=== PATIENT | female | born 1990 | race Caucasian/White ===

== ENCOUNTER 2020-03-05 09:16 | Observation (INO) ==
[2020-03-05] MEDS ORDERED: ONDANSETRON INJ 2 MG/ML 2 ML VIAL IV STA (09:51)
[2020-03-05] MEDS ORDERED: SODIUM CHLORIDE 0.9% 1000ML 2,000 ML IV ONE (09:51)
--- NOTE | 2020-03-05 10:05 | Emergency Department Note ---
History of Present Illness General Chief complaint: Vomiting Stated complaint: VOMITING Time Seen by Provider: 03/05/20 09:36 Source: patient Mode of arrival: ambulatory Limitations: no limitations History of Present Illness Maximum Pain Intensity: 5 This patient comes in for her fourth visit to the emergency department complaining of nausea and vomiting. She has had an extensive work-up done but continues to have nausea vomiting at home. There is questioning about cyclical vomiting when she is here last time. She does have a history of marijuana use but denies that she has used any recently. She has had no fever or cough or COVID symptoms but did get COVID tested on due to her continuation of s ymptoms. She vomited multiple times since last night. She does have an associated headache and feels that she is dehydrated. Denies . She has had extensive work-up including CAT scan of her head and her abdomen and multiple blood testing. She did test negative for Lyme. Her boyfriend is being treated presently for Lyme. Home Medications Home Medications Medication Instructions Recorded Confirmed Type citalopram 20 mg PO QAM 10/29/19 03/05/20 History ondansetron HCl 8 mg PO Q8H PRN 10/29/19 03/05/20 History levonorgestrel [Mirena] 20 mcg INTRAUTERINE DIRECTED 02/29/20 03/05/20 History metronidazole 500 mg PO BID 7 Days #14 tab 02/29/20 03/05/20 Rx Allergies Allergy/AdvReac Type Severity Reaction Status Date / Time Sulfa (Sulfonamide Allergy Severe ANAPHYLAXIS Unverified 03/05/20 11:49 Antibiotics) Cephalosporins Allergy Intermediate ANAPHYLAXIS Unverified 03/05/20 11:49 Penicillins Allergy Intermediate ANAPHYLAXIS Unverified 03/05/20 11:49 amoxicillin Allergy Mild ALLERGY Unverified 03/05/20 11:49 Past Med/Surg History Medical History Pneumonia Social History Preferred Language: Faroese Communication Ability: Effective Manager Intelligence Required: No Beliefs That Will Affect Care: None Current Living Situation: Family Other Information That Helps Us Care for You: No Feels Safe at Home: Yes Safety Concerns: Feels Safe At This Time Smoking Status: Never smoker Hx Alcohol Use: Yes Alcohol type: beer and wine Hx Substance Use: No Review of Systems A total of 10 systems reviewed and were otherwise negative Physical Exam Vital Signs Vital Signs - 24 hr 03/05/20 09:24 03/05/20 12:21 03/05/20 12:24 Temperature 36.9 C Temperature Source Oral Pulse Rate 103 H 93 H 94 H Pulse Rate from SpO2 Sensor 80 86 Respiratory Rate 16 14 20 Blood Pressure 136/101 H 117/83 Blood Pressure Mean 112 87 Pulse Oximetry 100 98 Oxygen Delivery Method Room Air Sepsis Recent Fever Within 48 Hours No Sepsis New/Unexplained Change in Mental Status No Sepsis Action Taken by Nursing No Action Required 03/05/20 12:30 Temperature Temperature Source Pulse Rate 76 Pulse Rate from SpO2 Sensor 75 Respiratory Rate 20 Blood Pressure 133/82 Blood Pressure Mean 98 Pulse Oximetry 100 Oxygen Delivery Method Sepsis Recent Fever Within 48 Hours Sepsis New/Unexplained Change in Mental Status Sepsis Action Taken by Nursing General: Well developed well nourished nontoxic young female who appears in no acute distress, breathing comfortably on room air. Normal speech HEENT: Normal cephalic atraumatic. Pupils are equal round and reactive to light. Extraocular movements are intact. Oropharynx is pink with moist mucous membranes. No swelling of the mouth lips or tongue. Neck: Supple with a midline trachea. No meningeal signs or stiffness, no JVD or bruits. No Stridor. Gait of kerning of Rozanski sign Chest: Normal respiratory effort without no increased work of breathing. Heart: Regular rate and rhythm. Abdomen: Soft nontender, nondistended without rebound guarding or rigidity. Extremities: No cyanosis clubbing or edema. No calf tenderness or assymetry Spine/Back. Non tender to palpation. No CVA tenderness Skin: Good turgor without rashes. Neurologic exam: Cranial nerves two through 12 are intact. Motor and sensation are intact and symmetrical throughout. Course Administered Medications Dextrose/Sodium Chloride (D5w And 1/2nss) 1,000 mls @ 60 mls/hr IV .[id number] YAMILET Stop: 04/04/20 12:44 Last Admin: 03/05/20 14:32 Dose: 60 mls/hr Documented by: [id number] Discontinued Medications Sodium Chloride (Nss 1000ml) 2,000 mls @ 999 mls/hr IV .[id number] ONE Stop: 03/05/20 11:51 Last Infusion: 03/05/20 12:24 Dose: 0 mls/hr Documented by: [id number] Admin: 03/05/20 10:22 Dose: 999 mls/hr Documented by: [id number] Promethazine HCl 12.5 mg/ (Sodium Chloride) 50.5 mls @ 202 mls/hr IV NOW STA Stop: 03/05/20 12:01 Last Infusion: 03/05/20 13:18 Dose: 0 mls/hr Documented by: [id number] Admin: 03/05/20 12:23 Dose: 202 mls/hr Documented by: [id number] Ketorolac Tromethamine (Toradol) 30 mg IV NOW ONE Stop: 03/05/20 11:48 Last Admin: 03/05/20 12:23 Dose: 30 mg Documented by: [id number] Ondansetron HCl (Zofran) 4 mg IV NOW STA Stop: 03/05/20 09:52 Last Admin: 03/05/20 10:22 Dose: 4 mg Documented by: [id number] Promethazine HCl (Phenergan) Confirm Administered Dose 25 mg .ROUTE .STK-MED ONE Stop: 03/05/20 12:12 Last Admin: 03/05/20 12:23 Dose: Not Given Documented by: [id number] Medical Decision Making Differential Diagnosis Includes but is not limited to: Cyclic vomiting, anxiety, dehydration, electrolyte or metabolic abnormality, infection, intracranial process, COVID Medical Records Attestation: I reviewed the patient's medical records. Home Medications Current Medication List: was personally reviewed by me Laboratory Data Attestation: I reviewed the patient's lab results. Result diagrams: 03/05/20 10:47 03/05/20 10:47 Lab Results 03/05/20 03/05/20 03/05/20 Range/Units 10:20 10:47 10:47 WBC 5.78 (4.8-10.8) K/uL RBC 3.99 L (4.2-5.4) M/uL Hgb 12.5 (12.0-16.0) g/dL Hct 36.1 L (37-47) % MCV 90.5 (80-100) fL MCH 31.3 (25-34) pg MCHC 34.6 (32-36) g/dL RDW Std Deviation 41.0 (36.4-46.3) fL RDW Coeff of Bird 12.5 (11.5-14.5) % Plt Count 290 (130-400) K/uL MPV 9.0 (7.4-10.4) fL Immature Gran % (Auto) 0.2 % Neut % (Auto) 73.0 % Lymph % (Auto) 17.3 % Coke % (Auto) 6.6 % Eos % (Auto) 2.6 % Baso % (Auto) 0.3 % Immature Gran # (Auto) 0.01 (0.00-0.02) K/uL Neut # (Auto) 4.22 (1.4-6.5) K/uL Lymph # (Auto) 1.00 L (1.2-3.4) K/uL Coke # (Auto) 0.38 (0.11-0.59) K/uL Eos # (Auto) 0.15 (0-0.5) K/uL Baso # (Auto) 0.02 (0-0.2) K/uL ESR (0-21) mm/hr Sodium 141 (136-145) mmol/L Potassium 4.6 (3.5-5.1) mmol/L Chloride 108 H (98-107) mmol/L Carbon Dioxide 25 (21-32) mmol/L Anion Gap 8.0 (3-11) BUN 11 (7-18) mg/dl Creatinine 0.75 (0.6-1.2) mg/dl Est Cr Clr Drug Dosing 116.7 ml/min Est GFR ( Amer) 125.7 Est GFR (Non-Af Amer) 108.5 BUN/Creatinine Ratio 15.3 (10-20) Glucose 83 (70-99) mg/dl Calcium 8.7 (8.5-10.1) mg/dl Phosphorus (2.5-4.9) mg/dl Magnesium 2.1 (1.8-2.4) mg/dl Total Bilirubin 0.6 (0.2-1) mg/dl AST 18 (15-37) U/L ALT 23 (12-78) U/L Alkaline Phosphatase 48 (45-117) U/L C-Reactive Protein (0-0.29) mg/dl Total Protein 7.2 (6.4-8.2) gm/dl Albumin 4.1 (3.4-5.0) gm/dl Globulin 3.1 (2.5-4.0) gm/dl Albumin/Globulin Ratio 1.3 (0.9-2) Lipase 59 L (73-393) U/L Urine Color Dark Yellow Urine Appearance Cloudy A (Clear) Urine pH 5.5 (4.5-7.5) Ur Specific [place] 1.032 H (1.000-1.030) Urine Protein 1+ H (Negative) Urine Glucose (UA) Negative (Negative) Urine Ketones 4+ H (Negative) Urine Blood 2+ H (Negative) Urine Nitrite Negative (Negative) Urine Bilirubin Negative (Negative) Urine Urobilinogen Negative (Negative) Ur Leukocyte Esterase 1+ H (Negative) Urine WBC (Auto) >30 H (0-5) /hpf Urine RBC (Auto) 5-10 H (0-4) /hpf U Hyaline Cast (Auto) 1-5 (0-5) /lpf U Epithel Cells (Auto) >30 H (0-5) /lpf Urine Bacteria (Auto) 3+ H (Negative) Urine Mucus Present A (None Prsent) Urine Yeast Budding A (None Prsent) 03/05/20 03/05/20 Range/Units 10:47 10:47 WBC (4.8-10.8) K/uL RBC (4.2-5.4) M/uL Hgb (12.0-16.0) g/dL Hct (37-47) % MCV (80-100) fL MCH (25-34) pg MCHC (32-36) g/dL RDW Std Deviation (36.4-46.3) fL RDW Coeff of Bird (11.5-14.5) % Plt Count (130-400) K/uL MPV (7.4-10.4) fL Immature Gran % (Auto) % Neut % (Auto) % Lymph % (Auto) % Coke % (Auto) % Eos % (Auto) % Baso % (Auto) % Immature Gran # (Auto) (0.00-0.02) K/uL Neut # (Auto) (1.4-6.5) K/uL Lymph # (Auto) (1.2-3.4) K/uL Coke # (Auto) (0.11-0.59) K/uL Eos # (Auto) (0-0.5) K/uL Baso # (Auto) (0-0.2) K/uL ESR 2 (0-21) mm/hr Sodium (136-145) mmol/L Potassium (3.5-5.1) mmol/L Chloride (98-107) mmol/L Carbon Dioxide (21-32) mmol/L Anion Gap (3-11) BUN (7-18) mg/dl Creatinine (0.6-1.2) mg/dl Est Cr Clr Drug Dosing ml/min Est GFR ( Amer) Est GFR (Non-Af Amer) BUN/Creatinine Ratio (10-20) Glucose (70-99) mg/dl Calcium (8.5-10.1) mg/dl Phosphorus 2.9 (2.5-4.9) mg/dl Magnesium (1.8-2.4) mg/dl Total Bilirubin (0.2-1) mg/dl AST (15-37) U/L ALT (12-78) U/L Alkaline Phosphatase (45-117) U/L C-Reactive Protein < 0.29 (0-0.29) mg/dl Total Protein (6.4-8.2) gm/dl Albumin (3.4-5.0) gm/dl Globulin (2.5-4.0) gm/dl Albumin/Globulin Ratio (0.9-2) Lipase (73-393) U/L Urine Color Urine Appearance (Clear) Urine pH (4.5-7.5) Ur Specific Montgomery (1.000-1.030) Urine Protein (Negative) Urine Glucose (UA) (Negative) Urine Ketones (Negative) Urine Blood (Negative) Urine Nitrite (Negative) Urine Bilirubin (Negative) Urine Urobilinogen (Negative) Ur Leukocyte Esterase (Negative) Urine WBC (Auto) (0-5) /hpf Urine RBC (Auto) (0-4) /hpf U Hyaline Cast (Auto) (0-5) /lpf U Epithel Cells (Auto) (0-5) /lpf Urine Bacteria (Auto) (Negative) Urine Mucus (None Prsent) Urine Yeast (None Prsent) Blood Pressure Blood Pressure Findings: Elevated blood pressure Blood Pressure Disposition: elevated BP felt to be situational MDM Narrative This patient comes in as described above. She is here for fourth visit after having continuing vomiting. She has had some anxiety as well although says she is not does not feel anxious now. She is afebrile. She was COVID tested recently and this is pending she has had no other classic COVID symptoms however. IV access was established. she was given 2 L IV normal saline bolus. she was given Zofran 4 mg IV. I reviewed her old records as she has had extensive work-up lately. Her work today was unremarkable. She has no acute electrolyte or metabolic abnormalities. She has no fever or white count to suggest infection or sepsis. She still was feeling nauseated and was given Phenergan 12.5 mg IV and Toradol 30 mg IV. Given that this is her fourth visit and she continues to have nausea and vomiting at home I do think she should be admitted/observed and I have talked to Dr. Mukherjee who will see her in the ER for these measures. Impression & Plan Nausea & vomiting, Acute dehydration, Not currently , Anxiety Discharge Plan Visit Data Chief Complaint: Vomiting Stated Complaint: VOMITING ED Provider: Juno Graves Discharge Problem: Nausea & vomiting, Acute dehydration, Not currently , Anxiety Discharge Instructions Interventions: ED Discharge Assessment Last Done: 03/05/20 13:27 Discharge Problem: Nausea & vomiting Qualifiers: Vomiting type: unspecified Vomiting Intractability: intractable Qualified Code(s): R11.2 - Nausea with vomiting, unspecified
[2020-03-05 10:32] LABS: Appearance Urine Cloudy (Clear); Bacteria Urine Automated 3+ (Negative); Blood Urine 2+ (Negative); Color Urine Dark Yellow; Epithelial Cell Urine Auto >30 /lpf (0-5); Glucose Urine UA Negative (Negative); Ketones Urine 4+ (Negative); Leukocyte Esterase Urine 1+ (Negative); Nitrite Urine Negative (Negative); Protein Urine 1+ (Negative); Specific Gravity Urine 1.032 (1.000-1.030); Urobilinogen Urine Negative (Negative); WBC Urine Automated >30 /hpf (0-5); pH Urine 5.5 (4.5-7.5)
[2020-03-05 10:46] LABS: Bilirubin Urine Negative (Negative); Ictotest Urine Negative (Negative)
[2020-03-05 10:47] LABS: Mucus Urine Present (None Prsent)
[2020-03-05 11:07] LABS: Basophils # (auto) 0.02 K/uL (0-0.2); Basophils % (auto) 0.3 %; Eosinophils # (auto) 0.15 K/uL (0-0.5); Eosinophils % (auto) 2.6 %; Hematocrit (blood only) 36.1 % (37-47); Hemoglobin 12.5 g/dL (12.0-16.0); Immature Granulocytes # (auto) 0.01 K/uL (0.00-0.02); Immature Granulocytes % (auto) 0.2 %; Lymphocytes % (auto) 17.3 %; Mean Corpuscular Hemoglobin 31.3 pg (25-34); Mean Corpuscular Hgb Conc 34.6 g/dL (32-36); Mean Corpuscular Volume 90.5 fL (80-100); Monocytes # (auto) 0.38 K/uL (0.11-0.59); Monocytes % (auto) 6.6 %; Neutrophils # (auto) 4.22 K/uL (1.4-6.5); Platelet Count 290 K/uL (130-400); RDW Coefficient of Variation 12.5 % (11.5-14.5); Red Blood Count 3.99 M/uL (4.2-5.4); White Blood Count 5.78 K/uL (4.8-10.8)
[2020-03-05 11:24] LABS: Albumin Level 4.1 gm/dl (3.4-5.0); BUN Creatinine Ratio 15.3 (10-20); Calcium 8.7 mg/dl (8.5-10.1); Creatinine Clr Calc Pharmacy 116.7 ml/min; Est GFR (African American) 125.7; Est GFR (Non-African American) 108.5; Magnesium 2.1 mg/dl (1.8-2.4); Potassium 4.6 mmol/L (3.5-5.1)
[2020-03-05 11:28] LABS: Albumin Globulin Ratio 1.3 (0.9-2); Bilirubin,Total 0.6 mg/dl (0.2-1); Globulin 3.1 gm/dl (2.5-4.0); Total Protein 7.2 gm/dl (6.4-8.2)
[2020-03-05] MEDS ORDERED: KETOROLAC 30 MG/ML VIAL IV ONE (11:47)
[2020-03-05] MEDS ORDERED: PROMETHAZINE HCL 12.5 MG in SODIUM CHLORIDE 0.9% 50 ML IV STA (11:47)
[2020-03-05] MEDS ORDERED: PROMETHAZINE HCL INJ 25 MG/ML 1 ML VIAL ONE (12:11)
[2020-03-05] MEDS ORDERED: METOCLOPRAMIDE HCL INJ 5 MG/ML 2 ML VIAL IV PRN (12:27)
[2020-03-05] MEDS ORDERED: SUMAtriptan succinate 25 MG TAB PO PRN (12:28)
[2020-03-05] MEDS ORDERED: PROMETHAZINE HCL 6.25 MG in SODIUM CHLORIDE 0.9% 50 ML IV PRN (12:32)
[2020-03-05] MEDS ORDERED: LORazepam 0.25 MG/0.5 ML VIAL IV PRN (12:33)
[2020-03-05] MEDS ORDERED: DiphenhydrAMINE HCL 50 MG/ML VIAL IV PRN (12:34)
[2020-03-05 12:48] LABS: C Reactive Protein < 0.29 mg/dl (0-0.29); Phosphorus 2.9 mg/dl (2.5-4.9)
--- NOTE | 2020-03-05 12:49 | History & Physical Report ---
Date of Service March 05, 2020 Assessment & Plan (1) Intractable nausea and vomiting: -This is a 29 year old Female with history of marijuana use weeks aago as per patient and none in recent days, who has been having intractable nausea and vomiting that started on Friday with multiple subsequent ED visits - this is 4th ED visit since symptoms began. She also reported that in the beginning of the week she noted that 2 family members also with vomiting symptoms and wonders if this could have been food poisoning. Her workup to date by previous providers did not appear to be able to find any obvious underlying bacterial cause of symptoms. -patient was started on oral Flagyl on Friday02/27/2020 because of Gardnerella like bacilli in urine. Denies changes to urination or with bowel movements. No fevers at home. Has boyfriend with Lyme exposure but she has been ruled out for Lyme disease already. 02/29/2020 CT abdomen unremarkable. No acute abdomen pain with symptoms but can have upset upper epigastric feeling when vomiting as per patient or headache subsequently after vomiting. No chest pain. No shortness of breath. COVID-19 test from 03/02/2020 ED visit is pending -has been on Zofran 8 mg q8 hours at home without significant improvements -was given phenergan in the ED, continue prn phenergan as q 6 hours for nausea or vomiting -continue home dose Citalopram 20 mg daily. because there can be potential interactions with Citalopram and Reglan (metoclopramide), will avoid Reglan (metoclopramide) as alerted by pharmacy warning on EMR -give IV fluids as dextrose 1/2 normal saline and clear liquid diet -patient appears somewhat anxious and there could be potential benefits of ativan if this is cyclic vomiting syndrome - ativan 0.25 mg prn for anxiety -trial of prn sumatriptan if headache -benadryl prn if allergic reaction -no acute abdomen pain, acetaminophen prn if pain or fever -continue home dose oral Flagyl as IV Flagyl to complete planned 7 day course -draw blood cultures, follow ERS, CRP, stool culture, C.difficile testing -monitor on telemetry under observation to rule out any arrhythmia. Electrolytes and renal function appears normal on 03/05/2020 rule out COVID-19 test from 03/02/2020 ED visit is pending -maintain airborne/contact isolation History of Marijuana use in the past -denies of being on or exposed to marijuana in recent weeks Depression -continue home dose Citalopram 20 mg daily. because there can be potential interactions with Citalopram and Reglan (metoclopramide), will avoid Reglan (metoclopramide) as alerted by pharmacy warning on EMR Full Code My colleague Dr. Goodman will be following the patient as hospitalist starting on 03/06/2020 History of Present Illness -This is a 29 year old Female with history of marijuana use weeks aago as per patient and none in recent days, who has been having intractable nausea and vomiting that started on Friday with multiple subsequent ED visits - this is 4th ED visit since symptoms began. She also reported that in the be ginning of the week she noted that 2 family members also with vomiting symptoms and wonders if this could have been food poisoning. Her workup to date by previous providers did not appear to be able to find any obvious underlying bacterial cause of symptoms. -patient was started on oral Flagyl on Friday02/27/2020 because of Gardnerella like bacilli in urine. Denies changes to urination or with bowel movements. No fevers at home. Has boyfriend with Lyme exposure but she has been ruled out for Lyme disease already. 02/29/2020 CT abdomen unremarkable. No acute abdomen pain with symptoms but can have upset upper epigastric feeling when vomiting as per patient or headache subsequently after vomiting. No chest pain. No shortness of breath. COVID-19 test from 03/02/2020 ED visit is pending Family Health history: patient denies chronic health conditions in the family and noted recent vomiting with 2 family members since her own vomiting symptoms started Primary Care Provider: Keaton Sotomayor MD Allergies Allergy/AdvReac Type Severity Reaction Status Date / Time Sulfa (Sulfonamide Allergy Severe ANAPHYLAXIS Unverified 03/05/20 11:49 Antibiotics) Cephalosporins Allergy Intermediate ANAPHYLAXIS Unverified 03/05/20 11:49 Penicillins Allergy Intermediate ANAPHYLAXIS Unverified 03/05/20 11:49 amoxicillin Allergy Mild ALLERGY Unverified 03/05/20 11:49 Home Medications Home Medications Medication Instructions Recorded Confirmed Type citalopram 20 mg PO QAM 10/29/19 03/05/20 History ondansetron HCl 8 mg PO Q8H PRN 10/29/19 03/05/20 History levonorgestrel [Mirena] 20 mcg INTRAUTERINE DIRECTED 02/29/20 03/05/20 History metronidazole 500 mg PO BID 7 Days #14 tab 02/29/20 03/05/20 Rx Past Med/Surg History Medical History Pneumonia Social History Feels Safe at Home: Yes Smoking Status: Never smoker Review of Systems Review of Systems: All systems reviewed & are unremarkable except as noted in HPI & below Physical Exam Constitutional: WD/WN, vitals as above Eyes: PERRL, conjunctivae normal, anicteric sclerae EOM intact bilaterally ENMT: external ear and nose normal, oropharynx normal Neck: trachea midline, no thyromegaly normal visual inspection Respiratory: normal respiratory effort, lungs clear to auscultation Cardiovascular: RRR, no murmur, no edema Gastrointestinal (Abdomen): normal bowel sounds, soft, nontender, no hepatosplenomegaly Musculoskeletal: Head/Neck/Chest: normocephalic and head atraumatic Neurologic: PERRL, EOMI, accommodation nl, no face palsy, no dysarthria CN's II-XI intact bilaterally Psychiatric: Orientation: alert and oriented x 3 Mood: + anxious mood (patient appears tired and concerned of her health) Results & Data Results & Data ([facility]) Vital Signs (Past 12 Hours) Vital Signs Temp Pulse Resp BP Pulse Ox 03/05/20 12:24 94 H 20 03/05/20 12:21 93 H 14 117/83 98 03/05/20 09:24 36.9 C 103 H 16 136/101 H 100 Code Status & VTE Plan VTE Prophylaxis Plan VTE Prophylaxis will be ordered: No
[2020-03-05] MEDS: D5W AND 1/2NSS 1,000 ML IV SCH (14:32)
[2020-03-05] MEDS: metroNIDAZOLE 500 MG/100 ML BAG IV SCH (17:07)
[2020-03-06] MEDS: metroNIDAZOLE 500 MG/100 ML BAG IV SCH ×2 (00:05→09:01)
[2020-03-06] MEDS: ACETAMINOPHEN 325 MG TAB PO PRN ×2 (04:41→08:59)
[2020-03-06] MEDS: D5W AND 1/2NSS 1,000 ML IV SCH (06:17)
[2020-03-06 07:58] LABS: Basophils # (auto) 0.02 K/uL (0-0.2); Basophils % (auto) 0.4 %; Eosinophils # (auto) 0.46 K/uL (0-0.5); Eosinophils % (auto) 9.7 %; Hematocrit (blood only) 34.1 % (37-47); Hemoglobin 11.6 g/dL (12.0-16.0); Lymphocytes % (auto) 29.6 %; Mean Corpuscular Hemoglobin 30.6 pg (25-34); Mean Platelet Volume 8.7 fL (7.4-10.4); Monocytes # (auto) 0.46 K/uL (0.11-0.59); Monocytes % (auto) 9.7 %; Neutrophils # (auto) 2.39 K/uL (1.4-6.5); Neutrophils % (auto) 50.6 %; Platelet Count 259 K/uL (130-400); RDW Coefficient of Variation 12.4 % (11.5-14.5); RDW Standard Deviation 40.3 fL (36.4-46.3); Red Blood Count 3.79 M/uL (4.2-5.4); White Blood Count 4.73 K/uL (4.8-10.8)
[2020-03-06 08:10] LABS: Estimated Average Glucose 88 mg/dl; Hemoglobin A1C 4.7 % (4.5-5.6)
[2020-03-06 08:33] LABS: Albumin Globulin Ratio 1.3 (0.9-2); Albumin Level 3.5 gm/dl (3.4-5.0); BUN Creatinine Ratio 12.9 (10-20); Bilirubin,Total 0.4 mg/dl (0.2-1); Calcium 8.6 mg/dl (8.5-10.1); Creatinine Clr Calc Pharmacy 138.9 ml/min; Est GFR (African American) 141.5; Est GFR (Non-African American) 122.1; Globulin 2.8 gm/dl (2.5-4.0); Total Protein 6.3 gm/dl (6.4-8.2)
[2020-03-06] MEDS ORDERED: CITALOPRAM 20 MG TAB PO SCH (09:00)
--- NOTE | 2020-03-06 12:48 | Hospitalist Progress Note ---
Date of Service March 06, 2020 Assessment & Plan (1) Intractable nausea and vomiting: -This is a 29 year old Female with history of marijuana use weeks aago as per patient and none in recent days, -Has been having intractable nausea and vomiting that started on Friday with multiple subsequent ED visits - this is 4th ED visit. -2 2 of her family members also with vomiting symptoms and wonders if this could have been food poisoning-and their symptoms have resolved. -Patient was started on oral Flagyl on Friday02/27/2020 because of Gardnerella like bacilli in urine-Flagyl has been discontinued - CT abdomen unremarkable. - COVID-19 test from 03/02/2020 ED visit is pending and will take another 24-72 hours to come. Very low suspicious for COVID19 -has been on Zofran 8 mg q8 hours at home without significant improvements -Has been getting intravenous Phenergan to control nausea -Clinically better this morning -We will start clears advance as tolerated History of ocular migraine Has an attack this morning with visual aura and could get nauseous as well Received Imitrex and the pain is resolving Rule out COVID-19 test from 03/02/2020 ED visit is pending -maintain airborne/contact isolation History of Marijuana use in the past -denies of being on or exposed to marijuana in recent weeks Depression -continue home dose Citalopram 20 mg daily. Full Code Likely to be discharged this afternoon. Admission and Anticipated Discharge Date Admission Date: March 05, 2020 Subjective The patient was seen and examined in telemetry unit She has been complaining of recurrent nausea and vomiting for the last few days with multiple ER visit in the past She has had some [place] food about 3 or 4 days back and to other family members have been involved with nausea and vomiting who are okay by this time Has history of migraine with an attack this morning and aborted with Imitrex Complains of nausea but no other symptoms Review of Systems Review of Systems: All systems reviewed and are unremarkable except as noted below Gastrointestinal: + nausea; no abdominal pain, no bloating and no vomiting Neurologic: Right-sided questionable ophthalmic migraine Physical Exam Physical Exam: Lying in bed anxious with minimal distress due to right upper facial pain Constitutional: well developed, well nourished, + acute distress (As above) and + ill appearing Eyes: PERRL, conjunctivae normal, anicteric sclerae ENMT: external ear and nose normal, oropharynx normal Neck: trachea midline, no thyromegaly Respiratory: normal respiratory effort; no respiratory distress Auscultation: lungs clear to auscultation bilaterally Cardiovascular: Rate/Rhythm: regular rate and regular rhythm Heart Sounds: no murmur Gastrointestinal (Abdomen): Inspection/Auscultation: abdomen normal to inspection; abdomen not distended Percussion/Palpation: abdomen soft; abdomen nontender Musculoskeletal: No acute arthritis involving any joints Neurologic: moves all extremities; no focal motor deficits Lymphatic: no cervical or axillary lymphadenopathy Results & Data Results & Data ([facility]) Vital Signs (Past 12 Hours) Vital Signs Temp Pulse Resp BP Pulse Ox 03/06/20 12:07 37.1 C 69 18 126/87 97 03/06/20 08:33 37.1 C 72 19 126/81 100 03/06/20 04:40 36.9 C 64 16 119/79 100 Laboratory Results Short CBC 03/06/20 Range/Units 07:41 WBC 4.73 L (4.8-10.8) K/uL Hgb 11.6 L (12.0-16.0) g/dL Hct 34.1 L (37-47) % Plt Count 259 (130-400) K/uL BMP 03/06/20 07:41 Sodium 139 Potassium 4.0 Chloride 109 H Carbon Dioxide 22 BUN 8 Creatinine 0.63 Glucose 91 Calcium 8.6 Liver Function 03/06/20 Range/Units 07:41 Total Bilirubin 0.4 (0.2-1) mg/dl AST 17 (15-37) U/L ALT 20 (12-78) U/L Alkaline Phosphatase 42 L (45-117) U/L Albumin 3.5 (3.4-5.0) gm/dl Medications Administered Current Inpatient Medications Acetaminophen (Tylenol) 325 mg PO Q6H PRN PRN Reason: Pain or Fever Stop: 04/04/20 12:44 Last Admin: 03/06/20 08:59 Dose: 325 mg Documented by: Citalopram Hydrobromide (Celexa) 20 mg PO QAM@0800 YAMILET Stop: 04/06/20 07:59 Diphenhydramine HCl (Benadryl) 12.5 mg IV Q12H PRN PRN Reason: Allergic Reaction Stop: 04/04/20 12:33 Promethazine HCl 6.25 mg/ (Sodium Chloride) 50.25 mls @ 201 mls/hr IV Q6H PRN PRN Reason: Nausea And Vomiting Stop: 04/04/20 12:31 Last Infusion: 03/06/20 10:20 Dose: Infused Documented by: Lorazepam (Ativan) 0.25 mg in 0.5 mls @ 0.5 mls/min IV Q8H PRN PRN Reason: Anxiety Stop: 04/04/20 12:32 Dextrose/Sodium Chloride (D5w And 1/2nss) 1,000 mls @ 60 mls/hr IV .[id number] YAMILET Stop: 04/04/20 12:44 Last Admin: 03/06/20 06:17 Dose: 60 mls/hr Documented by: Sumatriptan Succinate (Imitrex) 25 mg PO Q12H PRN PRN Reason: Migraine Headache Stop: 04/04/20 12:27 Last Admin: 03/06/20 09:01 Dose: 25 mg Documented by:
--- NOTE | 2020-03-06 17:25 | Discharge Summary ---
Date of Service March 06, 2020 Admission HPI Per Admitting Provider -This is a 29 year old Female with history of marijuana use weeks aago as per patient and none in recent days, who has been having intractable nausea and vomiting that started on Friday with multiple subsequent ED visits - this is 4th ED visit since symptoms began. She also reported that in the beginning of the week she noted that 2 family members also with vomiting symptoms and wonders if this could have been food poisoning. Her workup to date by previous providers did not appear to be able to find any obvious underlying bacterial cause of symptoms. -patient was started on oral Flagyl on Friday02/27/2020 because of Gardnerella like bacilli in urine. Denies changes to urination or with bowel movements. No fevers at home. Has boyfriend with Lyme exposure but she has been ruled out for Lyme disease already. 02/29/2020 CT abdomen unremarkable. No acute abdomen pain with symptoms but can have upset upper epigastric feeling when vomiting as per patient or headache subsequently after vomiting. No chest pain. No shortness of breath. COVID-19 test from 03/02/2020 ED visit is pending Family Health history: patient denies chronic health conditions in the family and noted recent vomiting with 2 family members since her own vomiting symptoms started Primary Care Provider: Keaton Sotomayor MD Admission Exam Per Admitting Provider Constitutional: WD/WN, vitals as above Eyes: PERRL, conjunctivae normal, anicteric sclerae EOM intact bilaterally ENMT: external ear and nose normal, oropharynx normal Neck: trachea midline, no thyromegaly normal visual inspection Respiratory: normal respiratory effort, lungs clear to auscultation Cardiovascular: RRR, no murmur, no edema Gastrointestinal (Abdomen): normal bowel sounds, soft, nontender, no hepatosplenomegaly Musculoskeletal: Head/Neck/Chest: normocephalic and head atraumatic Neurologic: PERRL, EOMI, accommodation nl, no face palsy, no dysarthria C N's II-XI intact bilaterally Psychiatric: Orientation: alert and oriented x 3 Mood: + anxious mood (patient appears tired and concerned of her health) Principal Diagnosis Intractable nausea vomiting likely secondary to acute poisoning-resolved completely, migraine Discharge Exam Constitutional well developed, well nourished, + acute distress (As above) and + ill appearing Eyes PERRL, conjunctivae normal, anicteric sclerae ENMT external ear and nose normal, oropharynx normal Neck trachea midline, no thyromegaly Respiratory normal respiratory effort; no respiratory distress Auscultation: lungs clear to auscultation bilaterally Cardiovascular Rate/Rhythm: regular rate and regular rhythm Heart Sounds: no murmur Gastrointestinal (Abdomen) Inspection/Auscultation: abdomen normal to inspection; abdomen not distended Percussion/Palpation: abdomen soft; abdomen nontender Neurologic moves all extremities; no focal motor deficits Lymphatic no cervical or axillary lymphadenopathy Discharge Data Allergies Allergy/AdvReac Type Severity Reaction Status Date / Time Sulfa (Sulfonamide Allergy Severe ANAPHYLAXIS Unverified 03/05/20 11:49 Antibiotics) Cephalosporins Allergy Intermediate ANAPHYLAXIS Unverified 03/05/20 11:49 Penicillins Allergy Intermediate ANAPHYLAXIS Unverified 03/05/20 11:49 amoxicillin Allergy Mild ALLERGY Unverified 03/05/20 11:49 Consultations 03/05/20 12:06 ED Decision to Admit Stat Hospital Course (1) Intractable nausea and vomiting: -This is a 29 year old Female with history of marijuana use weeks aago as per patient and none in recent days, -Has been having intractable nausea and vomiting that started on Friday with multiple subsequent ED visits - this is 4th ED visit. -2 2 of her family members also with vomiting symptoms and wonders if this could have been food poisoning-and their symptoms have resolved. -Patient was started on oral Flagyl on Friday02/27/2020 because of Gardnerella like bacilli in urine-Flagyl has been discontinued - CT abdomen unremarkable. - COVID-19 test from 03/02/2020 ED visit is pending and will take another 24-72 hours to come. Very low suspicious for COVID19 -has been on Zofran 8 mg q8 hours at home without significant improvements -Has been getting intravenous Phenergan to control nausea -Clinically better this morning -We will start clears advance as tolerated History of ocular migraine Has an attack this morning with visual aura and could get nauseous as well Received Imitrex and the pain is resolving Rule out COVID-19 test from 03/02/2020 ED visit is pending -maintain airborne/contact isolation History of Marijuana use in the past -denies of being on or exposed to marijuana in recent weeks Depression -continue home dose Citalopram 20 mg daily. Full Code Likely to be discharged this afternoon. Total Time Total Time Spent Total Time Spent (In Minutes): 35 minutes Total Time Includes: Examination of the Patient, Discharge Planning and Medication Reconciliation Discharge Plan Discharge Items Patient Disposition: Home - Self-Care Reason For Visit: INTRACTABLE VOMITING,GARDNERELLA IN URINE, Discharge Diagnosis: Intractable nausea vomiting likely secondary to acute poisoning-resolved completely, migraine Condition on Discharge: Good Activity: Resume your previous activity Non-emergency contact: Primary Care Provider Call non-emergency contact if: you have any medication questions and your symptoms worsen Follow-up/Referrals: Keaton Sotomayor MD [Primary Care Provider] - (Your doctor's office will be your call for an appointment within 7 days) Diet: Regular Addtl Attending Provider Instructions: Try to avoid fresh fruits and vegetables for a few days Take extra precaution as advised until you get test results for COVID-19 Try to drink plenty of warm fluids Pending Studies at Discharge: Yes Studies:: COVID-19 Stand-Alone Forms: My [facility] [employer], Smoking Cessation Medications and DC Order Prescriptions: New sumatriptan succinate 25 mg Tablet 25 mg PO Q12H PRN (Reason: migraine headache) 5 Days Qty: 10 RF: 0 promethazine 12.5 mg tablet 12.5 mg PO Q6H PRN (Reason: allergy symptoms) Qty: 30 RF: 0 Continued citalopram 20 mg tablet 20 mg PO QAM RF: 0 Mirena 20 mcg/24 hours (5 yrs) 52 mg Intrauterine Device 20 mcg INTRAUTERINE DIRECTED RF: 0 Discontinued ondansetron HCl 8 mg tablet 8 mg PO Q8H PRN (Reason: Nausea) RF: 0 metronidazole 500 mg tablet 500 mg PO BID 7 Days Qty: 14 RF: 0 Discharge Orders: Discharge Order (Routine); Ordered 03/06/20 Ordered By: Willian Becker Admission Data Admit Date/Time: 03/05/20 12:35 Attending Provider: Willian Becker Admit Provider: Chris Mukherjee Primary Care Provider: Keaton Sotomayor Other Providers: Chris Mukherjee
[2020-03-07] MEDS ORDERED: CITALOPRAM 20 MG TAB PO SCH (08:00)
== END 2020-03-06 18:25 | disposition home or self-care (01) ==
LOC: ED 09:16 → 2S 09:16 → SUATTDRO 12:35 → 2S 13:27

== ENCOUNTER 2024-08-23 04:07 | Inpatient (IN) ==
--- OUTSIDE RECORDS SUMMARY | 2024-08-23 04:20 | External Medical Summary | Summary of Care ---
Author Name Unknown Organization [facility] Address [address] [place] [address] Phone [phone] Care Team Providers Care Cobbler Upper Name Role Phone Keaton Sotomayor MD Primary Care Provider [phone] Reason for Visit * Reason Comments Return Visit Encounter Details Date Type Department Care Team (Latest Contact Info) Description 08/19/2024 2:15 PM EDT Office Visit Gynecology/Obstetric s [facility] [address] [place] [id number] Gay Latif CRNP [address] [facility] [place] [address] Normal in third trimester*; resulting from in vitro fertilization in third trimester; Rh negative, antepartum; Family history of hemochromatosis; Anxiety during Allergies Active Allergy Reactions Criticality Noted Date Comments Amoxicillin Low 08/14/1999 hives Other reaction(s): ALLERGY Cephalosporins High 08/14/1999 hives Ceclor Suprax Other reaction(s): ANAPHYLAXIS Dust Itching 07/13/2010 Sulfa Antibiotics High 07/22/2011 Swelling Other reaction(s): ANAPHYLAXIS documented as of this encounter (statuses as of 08/19/2024) Medications Medication Sig Dispensed Refills Start Date End Date Status Pre- Formula Oral Tablet Take 1 Tablet by mouth in the morning. Active Probiotic & Acidophilus Ex St Oral Capsule Take 1 Capsule by mouth in the morning and 1 Capsule at noon and 1 Capsule in the evening. Take with meals. Active Sertraline HCl 25 MG Oral Tablet (Zoloft)Indications :Anxiety during Take 1 Tablet by mouth in the morning. 90 Tablet 1 06/28/2024 Active Additional Information Patient not taking.Reported on 07/13/2024 documented as of this encounter (statuses as of 08/19/2024) Active Problems Problem Noted Date Diagnosed Date Anxiety during 06/28/2024 Overview: Zoloft at 30 weeks, encouraged to resume counseling Did NOT start zoloft. Looking for counseling. Referrals placed Normal 02/17/2024 resulting from in vitro fertilization 02/17/2024 Overview: IVF through [facility]. Embryo transfer 12/19/23 = JENNY 09/05/24. Completed pre-implantation genetic testing on embryos; sex male. Recommend ultrasound for growth at 28-32 weeks. Recommend weekly NSTs to begin at 36 weeks. Consider delivery at 39 weeks. Last Assessment & Plan: She presents for follow-up of growth secondary to a history of IVF. We reviewed the results of today's ultrasound. The estimated weight is appropriate for gestational age in the 87th percentile. The visualized anatomy is unremarkable in appearance. The KENDAL is normal. We discussed that the size is measuring at the upper range of normal. As per prior discussion and again today, the father of the baby thinks that he was 3.7- 4 kg at (born in [facility]). We discussed the option of clinical monitoring vs a follow-up growth assessment near term, which she would like to obtain. We will plan follow-up at about 38 weeks. Recent normal 3 hour GTT noted. She asked about some recent urinalysis values that noted blood in the urine. We reviewed some possible causes. She does not appear to have an renal symptoms (ie flank pain) and a urine culture was negative. This could be related to transient factors such as exercise, contaminant or vs an underlying renal concern or other etiologies. I recommended follow-up after delivery with additional assessment at that time if needed. Rh negative status during 02/17/2024 Family history of hemochromatosis 02/17/2024 Overview: FOB; embryo w/neg pre-implantation testing Last Assessment & Plan: Patient reports completing genetic counseling through [facility]. Declines additional genetic counseling. 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 09/03/2017 ADVANCE DIRECTIVE INFORMATION 09/21/2007 09/03/2017 Overview: Not applicable (under age of 18) Dysfunction of eustachian tube 06/01/2007 09/03/2017 Acute pharyngitis 06/01/2007 12/08/2008 Overview: Resolved per Benign Acute Dxs Protocol #3 Viral exanthemata 01/29/2005 09/03/2017 PRURITIS 01/29/2005 09/03/2017 CHR ALLRG CONJUNCTIV NEC 09/22/2003 Asthma with severity to be determined 09/22/2003 07/30/2011 Overview: ICD-10 update of inactive term ACUTE SINUSITIS NOS 03/07/2003 12/08/19 09 Overview: Resolved per Benign Acute Dxs Protocol #3 AC MAXILLARY SINUSITIS, LEFT 02/15/2003 09/03/2017 Allergic rhinitis 02/15/2003 09/03/2017 INJURY, RIGHT FOOT 02/11/2001 7 Varicella without complication 09/03/2017 Overview: resolved, as baby documented as of this encounter (statuses as of 08/19/2024) Immunizations Name Administration Dates Next Due COVID-19 mRNA, LNP-s, No Pre serve, 2-Dose Series (Moderna) 08/22/2021,12/17/2020,11/12/2020 H1N1 2009 Influenza, Intranasal 10/09/2009 HPV Vaccine, 4-Valent 07/08/2007,03/03/2007,12/18 Haemophilius B (HIB), unspecified 1992,01/28/1992,1991,10/11 Hepatitis A Vaccine 02/08/2009,07/28/2008 Hepatitis A, Ped/Adol., 18 y ear and below, 2-Dose 02/08/2009,07/28/2008 Meningococcal Conjugate Vacc ine (Menactra/Menveo) 03/03/2007 Meningococcal MCV4P Conjugat e Vaccine (Menactra) 03/03/2007 PPD 05/06/2022, 6,05/14/2012,04/18 RSV Vac., Bivalent, Perfusio n F, Pf,0.5 Ml (Abrysvo) 07/13/2024 Seasonal Influenza Vac., MDV , IM, 0.5 mL (Fluzone) 10/03/2017,07/29/2016,07/07/2013,11/09 Seasonal Influenza Virus Vac cine, Unspecified Formulation 09/21/2019,08/03/2018,07/21/2018,10/03,07/29/2016,07/24/2014,07/07/2013 ,11/09/2009 Seasonal Influenza, PF, 6 M & above, IM , (FluLaval or Fluzone) 07/21/2018 Seasonal Influenza, Quadriva lent, No Preserve, IM 08/20/2021,07/20/2020,09/21/2019,08/30 Seasonal Influenza, Trivalen t, (IIV3), PF, (Fluzone) 07/24/2014 TDAP (age 10 and older)(Boostrix) 06/09/2024,11/2015 documented as of this encounter Social History Tobacco Use Types Packs/Day Years Used Date Smoking Tobacco: Never Smokeless Tobacco: Never Comments:no passive smoke Alcohol Use Standard Drinks/Week Comments Not Currently 0 (1 standard drink = 0.6 oz pur e alcohol) occasionally PHQ-2 Answer Date Recorded PHQ Adult Total Score 0 07/21/2023 Hunger Vital Sign Answer Date Recorded Within the past 12 months, y ou worried that your food would run out before you got the money to buy more. Never true 07/21/20 23 Within the past 12 months, t he food you bought just didn't last and you didn't have money to get more. Never true 07/21/2023 [place] Depression Scale Answer Date Recorded [place] Depression Scale Total 8 02/17/2024 The thought of harming myself has occurred to me . Never 02/17/2024 Childcare Answer Date Recorded Do you feel overwhelmed with taking care of a child, family member or friend? No 07/21/2023 Does your family need help f inding childcare? (Household - for ages 0-17 years) Not on file 07/21/2023 Clothing Answer Date Recorded Have you been unable to get clothing when it was really needed? No 07/21/2023 Is your family able to get c lothes or diapers when needed? (Household - for ages 0-17 years) Not on file 07/21/2023 Personal Safety Answer Date Recorded Do you feel unsafe or have concerns for your saf ety? No 07/21/2023 Do you have concerns for you r family's safety? (Household - for ages 0-17 years) Not on file 07/21/2023 Utilities Answer Date Recorded Do you have trouble paying y our heating, water, or electric bill? (Adult - for ages 18 years and over) Not on file 07/21/2024 Is your family able to pay t he heat, water, or electric bill? (Household - for ages 0-17 years) Not on file 07/21/2024 Does your family have access to good internet? (Household - for ages 0-17 years) Not on file 07/21/2024 Employment Status Answer Date Recorded Are you unemployed or without regular income? No 07/21/2023 Does the household have a re gular source of income? (Household - for ages 0-17 years) Not on file 07/21/2023 Social Connections Answer Date Recorded How often do you feel lonely or isolated from those around you? (Adult - for ages 18 years and over) Not on file 07/21/2024 Financial Resource Strain Answer Date R ecorded Do you have any trouble payi ng for your medications, or do you think you might in the future? No 07/21/2023 Does your family have troubl e paying for medicine? (Household - for ages 0-17 years) Not on file 07/21/2023 Transportation Needs Answer Date Record ed READ ONLY Do you have troubl e getting a ride to medical visits or work? Never True 07/21/2023 Does your family have a hard time getting a ride to doctors visits? (Household - for ages 0-17 years) Not on file 07/21/2023 Has lack of transportation k ept you from medical appointments, meetings, work, or from getting things needed for daily living? Check all that apply. (Adult - for ages 18 years and over) Not on file 07/21/2023 Do you (or your family) have trouble finding or paying for a ride (transportation)? (Household - for ages 0-17 years) Not on file 07/21/2023 Housing Stability Answer Date Recorded Do you currently live in a s helter or have no steady place to sleep at night? No 07/21/2023 READ ONLY Do you think you a re at risk of becoming homeless? No 07/21/2023 Does your family worry about paying for your home or becoming homeless? (Household - for ages 0-17 years) Not on file 1 Are you homeless or worried that you might be in the future? (Adult - for ages 18 years and over) Not on file Are you (or your family) braydon eless or worried that you might be in the future? (Household - for ages 0-17 years) Not on file Food Insecurity Answer Date Recorded Do you need food for this week? No 07/21/2023 Are you able to get enough f ood for your family? (Household - for ages 0-17 years) Not on file 07/21/2023 Does your family need food t his week? (Household - for ages 0-17 years) Not on file 07/21/2023 Do you always have enough fo od for your family? (Household - for ages 0-17 years) Not on file 07/21/2023 Estimated Date of Delivery Comme nts Yes 09/05/2024 Based on Embryo Transfer Sex and Gender Information Value Date Recorded Sex Assigned at Female 02/25/2019 7:36 AM EDT Gender Identity Female 02/25/2019 7:36 AM EDT Sexual Orientation Straight 02/25/2019 7: 36 AM EDT Job Start Date Occupation Industry Not on file Not on file Not on file documented as of this encounter Last Filed Vital Signs Vital Sign Reading Time Taken Comments Blood Pressure 108/80 08/19/2024 11:31 AM EDT Pulse - - Temperature - - Respiratory Rate - - Oxygen Saturation - - Inhaled Oxygen Concentration - - Weight - - Height 172.7 cm (5' 8") 08/19/2024 11:31 AM EDT Body Mass Index - - documented in this encounter Progress Notes * Gay Latif CRNP - 08/19/2024 12:12 PM EDT 37w4d No concerns. Baby is active. No regular contractions, no bleeding or LOF. M appt prior to this appt- normal growth and KENDAL. BPP 05/27. Requesting cervical check. Supervisor Denture Department Documentation Provider requested repair armature winder helper. Name of repair armature winder helper: MERY Muniz documented in this encounter Nursing Notes * Lesley Gould LPN - 08/19/2024 11:32 AM EDT 37w4d C/o leaking fluid- Requests cervical check Had bpp at [facility] visit earlier today, 05/27, KENDAL 19.3cm. documented in this encounter Plan of Treatment Upcoming Encounters Date Type Department Care Team (Late st Contact Info) Description 08/25/2024 9:00 AM EST Office Visit Gynecology/Obstetrics [facility] [address] [place] [address] Gay Latif CRNP [address] [facility] [place] [address] Cervantes, Non Stress Tests Jeremias [address] [place] [address] 09/09/2024 12:30 PM EST [facility] [address] [place] [address] Alisson Merino, [facility] [address] [place] [address] 10/12/2024 9:00 AM EST Telemedicine Psychology, [place] [address] [place] [address] Lester Gonzalez, [facility] [address] [place] [address] Health Maintenance Due Date Last Done Comments COVID-19 Vaccine ( season) 2024 08/22/2021, 12/17/2020, 11/12/2020 Influenza Vaccine (FLU shot) (#1) 2024 08/20/2021, 07/20/2020, 09/21/2019, Additional history exists Depression Screening 07/21/2024 07/21/2023 Pap Smear 02/16/2027 02/17/2024, 0403/2018, 10/04/2016, Additional history exists Cervical Cancer Screening 02/16/2029 HPV/Co-Test 02/16/2029 02/17/2024 DTap/Tdap Vaccines (9 - Td or Tdap) 06/09/2034 06/09/2024, 12/20/2015, 08/28/2005, Additional history exists Hepatitis B Vaccine Completed 05/14/1995, 01/09/1995, 11/12/1994 MENINGOCOCCAL (MENACTRA/MENVEO) Aged Out 03/03/2007, 03/03/2007 No longer eligibl e based on patient's age to complete this topic HPV (Gardasil) Vaccine Completed 7, 03/03/2007, 12/30/2006 Pneumococcal Vaccine: Pediatrics (0 to 5 Years) and At-Risk Patients (6 to 64 Years) Aged Out No longer eligible based on patient's age to complete this topic documented as of this encounter Medical Devices Not on filedocumented as of this encounter Visit Diagnoses Diagnosis Normal in third trimester- Primary resulting from in vitro fertilization in third trimester Rh negative, antepartum Rhesus isoimmunization affecting management of mother, antepartum condition Family history of hemochromatosis Family history of other endocrine and metabolic diseases Anxiety during documented in this encounter Care Teams Cobbler Upper Relationship Specialty Start Date End Date Keaton Sotomayor MD [address] [place] [address] PCP - General 07/20/00 documented as of this encounter
--- OUTSIDE RECORDS SUMMARY | 2024-08-23 04:20 | External Medical Summary | Summary of Care ---
Author Name Unknown Organization [facility] Address [address] [place] [address] Phone [phone] Care Team Providers Care Sales And Service Agent Name Role Phone Keaton Sotomayor MD Primary Care Provider +1- [phone] Encounter Details Date Type Department Care Team (Latest Contact Info) Description 08/19/2024 11:00 AM EDT Office Visit Golf Ball Molder Obstetrics Maternal Medicine, [facility] [address] [place] [address] Savanna Pool, DO [address] [place] [address] resulting from in vitro fertilization in third trimester*; Ultrasound for screening for growth restriction; 37 weeks gestation of Allergies Active Allergy Reactions Criticality Noted Date Comments Amoxicillin Low 08/14/1999 hives Other reaction(s): ALLERGY Cephalosporins High 08/14/1999 hives Ceclor Suprax Other reaction(s): ANAPHYLAXIS Dust Itching 07/13/2010 Sulfa Antibiotics High 07/22/2011 Swelling Other reaction(s): ANAPHYLAXIS documented as of this encounter (statuses as of 08/19/2024) Medications Medication Sig Dispensed Refills Start Date End Date Status Pre-Ivan Formula Oral Tablet Take 1 Tablet by [...] in vitro fertilization 02/17/2024 Overview: IVF through [facility]. Embryo transfer 12/19/23 = JENNY 09/05/24. Completed [...] was 3.7- 4 kg at (born in [facility]). We discussed the option of clinical [...] MCV4P Conjugat e Vaccine (Menactra) 03/03/2007 PPD 05/06/2022,,05/14/2012,04/18 RSV Vac., Bivalent, Perfusio n F, Pf,0.5 [...] money to get more. Never true 07/21/2023 [place] Depression Scale Answer Date Recorded [place] Depression Scale Total 8 02/17/2024 The thought [...] on file documented as of this encounter Progress Notes * Savanna Pool DO - 08/19/2024 12:23 PM EDT Gricelda presented today at 37w4d for an ultrasound for the following indications: resulting from in vitro fertilization in third trimester Ultrasound for screening for growth restriction 37 weeks gestation of Ultrasound summary: Patient presented at 37w 4d for growth assessment. Normal growth with EFW 3039 g at 40%ile. Normal KENDAL at 19.3 cm. Cephalic presentation. BPP 05/27. I reviewed the ultrasound images. Gricelda was given the opportunity to meet with me if she had any questions. Please refer to the ultrasound report for additional details about today's ultrasound examination. RECOMMENDATIONS: Follow up with MFM for ultrasound as clinically indicated. Weekly NSTs. See prior formal MFM consultation note. Thank you for allowing us to participate in the care of this patient. Please call with any questions. Savanna Pool DO 08/19/2024 12:23 PM documented in this encounter Plan of Treatment Upcoming Encounters Date Type Department Care Team (Latest Contact Info) Description 08/19/2024 2:15 PM EDT Office Visit Gynecology/Obstetric raven Cervantes [address] [place] [address] Gay Latif CRNP [address] [place] [address] Normal in third trimester*; resulting from in vitro fertilization in third trimester; Rh negative, antepartum; Family history of hemochromatosis; Anxiety during 08/25/2024 9:00 AM EST Office Visit Gynecology/Obstetric s Jean's Cervantes [address] [place] [address] Gay Latif CRNP [address] [place] [address] Cervantes, Non Stress Tests Jeremias [address] [place] [address] 09/09/2024 12:30 PM EST [facility] [address] [place] [address] Alisson Merinomena, [facility] [address] [place] [address] 10/12/2024 9:00 AM EST Telemedicine Psychology, [place] [address] [place] [phone] Lester Gonzalez, [facility] [address] [place] [address] Health Maintenance Due Date Last Done Comments COVID-19 Vaccine ( season) 2024 08/22/2021, 12/17/2020, 11/12/2020 Influenza Vaccine (FLU shot) (#1) 2024 08/20/2021, 07/20/2020, 09/21/2019, Additional history exists Depression Screening 07/21/2024 07/21/2023 Pap Smear 02/16/2027 02/17/2024, 04/03/2018, 10/04/2016, Additional history exists Cervical Cancer Screening [...] other endocrine and metabolic diseases Anxiety during resulting from in vitro fertilization in third trimester- Primary Ultrasound for screening for growth restriction screening for growth retardation using ultrasonics 37 weeks gestation of state, incidental documented in this encounter Care Teams Sales And Service Agent Relationship Specialty Start Date End Date Keaton Sotomayor MD [address] [place] [address] PCP - General 07/20/00 documented as of this encounter
--- OUTSIDE RECORDS SUMMARY | 2024-08-23 04:20 | External Medical Summary | Summary of Care ---
Author Name Unknown Organization [facility] Address [address] [place] [address] Phone [phone] Care Team Providers Care Interior Decorator Paperhanging Name Role Phone Keaton Sotomayor MD Primary Care Provider +1- [phone] Encounter Details Date Type Department Care Team (Latest Contact Info) Description 08/19/2024 11:00 AM EDT Office Visit Sugar Controller Obstetrics Maternal Medicine, [facility] [address] [place] [address] Savanna Pool, DO [address] [place] [address] resulting from in vitro fertilization [...] in vitro fertilization 02/17/2024 Overview: IVF through [facility]. Embryo transfer 12/19/23 = JENNY 09/05/24. Completed [...] was 3.7- 4 kg at (born in [facility]). We discussed the option of clinical [...] No Pre serve, 2-Dose Series (Moderna) 08/22/2021,12/17/2020,11/12/2020 DTaP Dipth/Tet/Acell Pertussis (Infanrix), Peds 09/03/1996,02/13/1993,01/28/1992,12/06,1991 H1N1 2009 Influenza, Intranasal 10/09/2009 HIB PRP-T, 4 Dose, PF, IM (H iberix, ActHib) 02/13/1993,01/28/1992,1991,10/11 HPV Vaccine, 4-Valent 07/08/2007,03/03/2007,12/18 Haemophilius B (HIB), unspecified 1992,01/28/1992,1991,10/11 Hepatitis A Vaccine 02/08/2009,07/28/2008 Hepatitis A, Ped/Adol., 18 y ear and below, 2-Dose 02/08/2009,07/28/2008 Hepatitis B, 0-19 yrs 05/14/1995,01/09/1995,10/21 MMR - Measles/Mumps/Rubella Vaccine 09/14/1997,0 11/10/1992 Meningococcal Conjugate Vacc ine (Menactra/Menveo) 03/03/2007 Meningococcal MCV4P Conjugat e Vaccine (Menactra) 03/03/2007 OPV - Polio Virus Vaccine (Oral) 996,02/13/1993,1991,10/11 PPD 05/06/2022, 6,05/14/2012,04/18 RSV Vac., Bivalent, Perfusio [...] (Fluzone) 07/24/2014 TDAP (age 10 and older)(Boostrix) 06/09/2024,11/2015,08/28/2005 documented as of this encounter Social History [...] money to get more. Never true 07/21/2023 [place] Depression Scale Answer Date Recorded [place] Depression Scale Total 8 02/17/2024 The thought [...] 18 years and over) Not on file 3 Are you (or your family) braydon eless [...] 2:15 PM EDT Office Visit Gynecology/Obstetric s Wendy Cervantes [address] [place] [address] Gay Latif CRNP [address] [place] [address] Normal in third trimester*; resulting from in vitro fertilization in third trimester; Rh negative, antepartum; Family history of hemochromatosis; Anxiety during 08/25/2024 9:00 AM EST Office Visit Gynecology/Obstetric s Wendy Cervantes [address] [place] [address] Gay Latif CRNP [address] [place] [address] Billy Non Stress Tests Jeremias [address] [facility] [place] [address] 09/09/2024 12:30 PM EST Telemedicine Psychology Sheryl Thomas [address] [place] [address] Alisson Merino, [facility] [address] [place] [address] 10/12/2024 9:00 AM EST Telemedicine Psychology, [place] [address] [place] [phone] Lester Gonzalez PsyD [address] [place], [place] [phone] Health Maintenance Due Date Last Done Comments [...] incidental documented in this encounter Care Teams Interior Decorator Paperhanging Relationship Specialty Start Date End Date Keaton Sotomayor MD [address] [place] [address] PCP - General 07/20/00 documented as of this encounter
--- OUTSIDE RECORDS SUMMARY | 2024-08-23 04:21 | External Medical Summary | Summary of Care ---
Author Name Unknown Organization [facility] Address [address] [place] [address] Phone [phone] Care Team Providers Care Vein Pumper Name Role Phone Keaton Sotomayor MD Primary Care Provider +1- [phone] Reason for Visit * Reason Comments Outpatient Testing Encounter Details Date Type Department Care Team (Late st Contact Info) Description 06/10/2024 7:00 AM EDT Laboratory Laboratory, [facility] [address] [place] [address] [facility] [address] [place] [address] Abnormal glucose tolerance in mother complicating Allergies Active Allergy Reactions Criticality Noted Date Comments Amoxicillin Low 08/14/1999 hives Other reaction(s): ALLERGY Cephalosporins High 08/14/1999 hives Ceclor Suprax Other reaction(s): ANAPHYLAXIS Dust Itching 07/13/2010 Sulfa Antibiotics High 07/22/2011 Swelling Other reaction(s): ANAPHYLAXIS documented as of this encounter (statuses as of 06/10/2024) Medications Medication Sig Dispensed Refills Start Date End Date Status Pre-Ivan Formula Oral Tablet Take 1 Tablet by mouth in the morning. Active Probiotic & Acidophilus Ex St Oral Capsule Take 1 Capsule by mouth in the morning and 1 Capsule at noon and 1 Capsule in the evening. Take with meals. Active documented as of this encounter (statuses as of 06/10/2024) Active Problems Problem Noted Date Diagnosed Date , supervision, high-risk, first trimest er 02/26/2024 Normal 02/17/2024 resulting from in vitro fertilization 02/17/2024 Overview: IVF through [facility]. Embryo transfer 12/19/23 = JENNY 09/05/24. Completed pre-implantation genetic testing on embryos; sex male. Recommend ultrasound for growth at 28-32 weeks. Recommend weekly NSTs to begin at 36 weeks. Consider delivery at 39 weeks. Last Assessment & Plan: She presents for a anatomy survey and echocardiogram secondary to a history of IVF. We reviewed the results of today's ultrasound. The estimated weight is appropriate for gestational age (measures about 1 week ahead). The visualized anatomy is unremarkable in appearance. There are no cardiac abnormalities appreciated. The amniotic fluid amount appears normal. We discussed that ultrasound is not able to identify all anomalies, but it is reassuring that no anomalies were seen today. We discussed that the size is measuring about 1 week ahead. The father of the baby reports that he was over 4000g at . We reviewed the possibility of larger measurements later in , though sometimes measurements can move closer to average as well. We will mclain to reassess in about 10-12 weeks. We reviewed some considerations regarding delivery timing given a history of IVF. Rh negative status during 02/17/2024 Family history of hemochromatosis 02/17/2024 Overview: FOB; embryo w/neg pre-implantation testing Last Assessment & Plan: Patient reports completing genetic counseling through [facility]. Declines additional genetic counseling. 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 [...] as of this encounter (statuses as of 06/10/2024) Immunizations Name Administration Dates Next Due COVID-19 mRNA, LNP-s, No Pre serve, 2-Dose Series (Moderna) 08/22/2021,12/17/2020,11/12/2020 H1N1 2009 Influenza, Intranasal 10/09/2009 HPV Vaccine, 4-Valent 07/08/2007,03/03/2007,12/18 Haemophilius B (HIB), unspecified 1992,01/28/1992,1991,10/11 Hepatitis A Vaccine 02/08/2009,07/28/2008 Hepatitis A, Ped/Adol., 18 y ear and below, 2-Dose 02/08/2009,07/28/2008 Meningococcal Conjugate Vacc ine (Menactra/Menveo) 03/03/2007 Meningococcal MCV4P Conjugat e Vaccine (Menactra) 03/03/2007 PPD 05/06/2022, 6,05/14/2012,04/18 Seasonal Influenza Virus Vac cine, Unspecified Formulation 09/21/2019,08/03/2018,07/21/2018,10/03,07/29/2016,07/24/2014,07/07/2013 ,11/09/2009 Seasonal Influenza, PF, 6 M & above, IM , (FluLaval or Fluzone) 07/21/2018 Seasonal Influenza, Quadriva lent, No Preserve, IM 08/20/2021,07/20/2020,09/21/2019,08/30 Seasonal Influenza, Split, I IV3, No Preserve, Inj 07/24/2014 Seasonal Influenza, Split, I IV3, With Preserve, Inj 10/03/2017,07/29/2016,07/07/2013,11/09 TDAP (age 10 and older)(Boostrix) 06/09/2024,11/2015 documented [...] money to get more. Never true 07/21/2023 [place] Depression Scale Answer Date Recorded [place] Depression Scale Total 8 02/17/2024 The thought [...] y our heating, water, or electric bill? No 07/21/2023 Is your family able to pay t he heat, water, or electric bill? (Household - for ages 0-17 years) Not on file 07/21/2023 Does your family have access to good internet? (Household - for ages 0-17 years) Not on file 07/21/2023 Employment Status Answer Date Recorded Are you unemployed or without regular income? No 07/21/2023 Does the household have a [facility] source of income? (Household - for ages 0-17 years) Not on file 07/21/2023 Social Connections Answer Date Recorded How often do you feel lonely or isolated from th ose around you? Rarely 07/21/2023 Financial Resource Strain Answer Date R ecorded [...] on file documented as of this encounter Plan of Treatment Upcoming Encounters Date Type Department Care Team (Late st Contact Info) Description 06/25/2024 1:45 PM EDT Office Visit Dedicated Intermodal Truck Driver Obstetrics Maternal Medicine, [place] [address] [place] [address] Charlie Gaming, [address] [facility] [place] [address] 06/25/2024 1:45 PM EDT Imaging [facility], [place] [address] [place] [facility] [place] [address] 06/28/2024 8:45 AM EDT Office Visit Gynecology/Obstetrics Wendy Cervantes [address] [place] [address] BackerEly CRNP [address] [place] [address] Pending Results Name Type Priority Associated Diagnoses Date /Time GESTATIONAL GLUCOSE TOLERANCE, 3 HOUR Lab Routine Abnormal glucose tolerance in mother complicating 06/10/2024 7:06 AM EDT 100-G GESTATIONAL GLUCOSE, 3 HOUR Lab Routine Abnormal glucose tolerance in mother complicating 06/10/2024 10:09 AM EDT Health Maintenance Due Date Last Done Comments COVID-19 Vaccine ( season) 2023 08/22/2021, 12/17/2020, 11/12/2020 Influenza Vaccine (FLU shot) (#1) 2024 08/20/2021, 07/20/2020, 09/21/2019, Additional history exists Depression Screening 07/21/2024 07/21/2023 Pap Smear 02/16/2027 02/17/2024, 01/19, 10/04/2016, Additional history exists Cervical Cancer Screening 02/16/2029 HPV/Co-Test 02/16/2029 02/17/2024 DTaP,Tdap,and Td Vaccines (9 - Td or Tdap) 06/09/2034 [...] Not on filedocumented as of this encounter Procedures Procedure Name Priority Date/Time Associated Diagnosis Comments 100-G GESTATIONAL GLUCOSE, 2 HOUR Routine 06/10/2024 9:15 AM EDT Abnormal glucose tolerance in mother complicating 100-G GESTATIONAL GLUCOSE, 1 HOUR Routine 06/10/2024 8:13 AM EDT Abnormal glucose tolerance in mother complicating 100-G GESTATIONAL GLUCOSE, FASTING Routine 06/10/2024 7:06 AM EDT Abnormal glucose tolerance in mother complicating documented in this encounter Results * 100-G GESTATIONAL GLUCOSE, 2 HOUR (06/10/2024 9:15 AM EDT) 100-g Gestational Glucose, 2 Hour 101 70 - 154 mg/dL 06/10/2024 10:08 AM EDT [facility]10 Blood Venous blood specimen / Unknown Venipuncture / Unknown 06/10/2024 9:15 AM EDT 06/10/2024 9:27 AM EDT Eunice Shaw PA-C LAB BLOOD ORDERABLES [facility] [address] [facility] [place] [address] * 100-G GESTATIONAL GLUCOSE, 1 HOUR (06/10/2024 8:13 AM EDT) 100-g Gestational Glucose, 1 Hour 135 70 - 179 mg/dL 06/10/2024 9:07 AM EDT [facility] Blood Venous blood specimen / Unknown Venipuncture / Unknown 06/10/2024 8:13 AM EDT 06/10/2024 8:13 AM EDT Eunice Shaw PA-C LAB BLOOD ORDERABLES [facility] [address] [facility] [place] [address] * 100-G GESTATIONAL GLUCOSE, FASTING (06/10/2024 7:06 AM EDT) 100-g Gestational Glucose, Fasting 87 70 - 94 mg/dL 06/10/2024 8:11 AM EDT [facility]ORY [email or web address]10 Blood Venous blood specimen / Unknown Venipuncture / Unknown 06/10/2024 7:06 AM EDT 06/10/2024 7:06 AM EDT Narrative [facility] - 06/10/2024 8:11 AM EDT Based on ACOG guideline, gestational diabetes mellitus is diagnosed when any of the following is met: Fasting is greater than or equal to 95 mg/dL 1 hour is greater than or equal to 180 mg/dL 2 hour is greater than or equal to 155 mg/dL 3 hour is greater than or equal to 140 mg/dL Eunice Shaw PA-C LAB BLOOD ORDERABLES LABORATORY [facility] [[email or web address] 57-10 [address] [facility] [place] [address] documented in this encounter Visit Diagnoses Diagnosis Abnormal glucose tolerance in mother complicating Abnormal maternal glucose tolerance, complicating , childbirth, or the puerperium, unspecified as to episode of care documented in this encounter Care Teams Vein Pumper Relationship Specialty Start Date End Date Keaton Sotomayor MD [address] [place] [facility] [place] [address] PCP - General 07/20/00 documented as of this encounter
--- OUTSIDE RECORDS SUMMARY | 2024-08-23 04:21 | External Medical Summary | Summary of Care ---
Author Name Unknown Organization [facility] Address [address] [facility] [place] [address] Phone [phone] Care Team Providers Care Sewer Line Photo Inspector Name Role Phone Keaton Sotomayor MD Primary Care Provider +1- [phone] Reason for Visit * Reason Comments Return Visit Encounter Details Date Type Department Care Team (Latest Contact Info) Description 06/09/2024 8:45 AM EDT Office Visit Gynecology/Obstetric s Wendy Cervantes [address] [place] [address] Bartolome Jones MD [address] [employer] [address] [place] [address] Normal in third trimester*; resulting from in vitro fertilization in third trimester; Rh negative status during in third trimester; Family history of hemochromatosis; , supervision, high-risk, first trimester Allergies Active Allergy Reactions Criticality Noted Date Comments Amoxicillin Low 08/14/1999 hives Other reaction(s): ALLERGY Cephalosporins High 08/14/1999 hives Ceclor Suprax Other reaction(s): ANAPHYLAXIS Dust Itching 07/13/2010 Sulfa Antibiotics High 07/22/2011 Swelling Other reaction(s): ANAPHYLAXIS documented as of this encounter (statuses as of 06/09/2024) Medications Medication Sig Dispensed Refills Start Date End Date Status Pre- Formula Oral Tablet Take 1 Tablet by mouth in the morning. Active Probiotic & Acidophilus Ex St Oral Capsule Take 1 Capsule by mouth in the morning and 1 Capsule at noon and 1 Capsule in the evening. Take with meals. Active Hospital, Clinic, or Other Facility Administered Medication Ordered Dose Route Frequency Start Date End Date Status Rho D Immune Globulin (Rhophylac) inj 300 mcgIndications:Rh negative status during in third trimester 300 mcg IM ONCE 06/09/2024 06/10/2024 Active documented as of this encounter (statuses as of 06/09/2024) Active Problems Problem Noted Date Diagnosed Date , supervision, high-risk, first trimest er 02/26/2024 Normal 02/17/2024 resulting from in vitro fertilization 02/17/2024 Overview: IVF through [facility]. Embryo transfer 12/19/23 = JENNY 09/05/24. Completed [...] Plan: Patient reports completing genetic counseling through [facility]. Declines additional genetic counseling. Recurrent sinus infections 04/07/2020 Anterior knee pain, left 07/08/2019 Patellar dislocation, left, initial encounter Patellofemoral pain syndrome of left knee 2018 Chronic rhinitis 09/03/2017 Anxiety 09/03/2017 Estimated Date of Delivery Comme nts Yes 09/05/2024 Based on Embryo Transfer documented as of this encounter (statuses as of 06/09/2024) Resolved Problems Problem Noted Date Diagnosed Date [...] as of this encounter (statuses as of 06/09/2024) Immunizations Name Administration Dates Next Due COVID-19 [...] money to get more. Never true 07/21/2023 [place] Depression Scale Answer Date Recorded [place] Depression Scale Total 8 02/17/2024 The thought [...] Sign Reading Time Taken Comments Blood Pressure 110/62 06/09/2024 8:26 AM EDT Pulse - - Temperature - - Respiratory Rate - - Oxygen Saturation - - Inhaled Oxygen Concentration - - Weight 82.1 kg (181 lb) 06/09/2024 8:26 AM EDT Height 172.7 cm (5' 8") 06/09/2024 8:26 AM EDT Body Mass Index 27.52 06/09/2024 8:26 AM EDT documented in this encounter Progress Notes * Queenie Steel MED ASSIST - 06/09/2024 9:14 AM EDT Patient here for TDAP injection. Patient doing well no complaints. Injection given IM as ordered. Patient tolerated well. Patient to follow up as directed. Patient instructed to call if any complications. Patient verbalized understanding of instructions given and her follow up appt for EMILY Injection site: Left Deltoid Medication Source: Dispensed stock medication * Bartolome Jones MD - 06/09/2024 8:42 AM EDT Pt doing well No complaints Next MFM scan in a week * Jessica Rojas LPN - 06/09/2024 8:29 AM EDT 27w3d Doing glucola Needs rhogam and tdap today documented in this encounter Plan of Treatment Upcoming Encounters Date Type Department Care Team (Late st Contact Info) Description 06/10/2024 7:00 AM EDT Laboratory Laboratory, [facility] [address] [place] [phone] Jag Cervantes [address] [place] [address] 06/25/2024 1:45 PM EDT Office Visit Testing Coordinator Obstetrics Maternal Medicine, [address] [address] Charlie Gaming [address] [place] [address] 06/25/2024 1:45 PM EDT Imaging Radiology [facility] [place], [place] [address] [facility] [place] [address] 06/28/2024 8:45 AM EDT Office Visit Gynecology/Obstetrics Wendy Cervantes [address] [place] [address] BackerEly CRNP [address] [place] [address] Health Maintenance Due Date Last Done Comments [...] in vitro fertilization in third trimester Rh negative status during in third trimester Family history of hemochromatosis Family history of other endocrine and metabolic diseases , supervision, high-risk, first trimester documented in this encounter Care Teams Sewer Line Photo Inspector Relationship Specialty Start Date End Date Keaton Sotomayor MD [address] [place] [facility] [place] [address] PCP - General 07/20/00 documented as of this encounter
--- OUTSIDE RECORDS SUMMARY | 2024-08-23 04:21 | External Medical Summary | Summary of Care ---
Author Name Unknown Organization [facility] Address [address] [place] [address] Phone [phone] Care Team Providers Care Grommet Man Name Role Phone Keaton Sotomayor MD Primary Care Provider +1- [phone] Reason for Visit * Reason Comments Ultrasound * Evaluate & Treat - Unlimited Visits (Within 10 days (routine)) - Authorized Specialty Diagnoses / Procedures Referred By Speedy santana Referred To Contact Obstetrics/Gynecology / Maternal Medicine Diagnoses Normal in first trimester resulting from in vitro fertilization in first trimester Ely Theodore CRNP [address] [place] [address] Referral ID Status Reason Start Date Expiration Date Visits Requested Visits Authorized [id number] Authorized Specialty Services Required 02/17/2024 02/16/2025 [id number] Encounter Details Date Type Department Care Team (Latest Contact Info) Description 06/25/2024 1:45 PM EDT Office Visit Lead Printer Obstetrics Maternal Medicine, [place] [address] [place] [address] Charlie Gaming DO [address] [place] [address] resulting from in vitro fertilization in third trimester*; 29 weeks gestation of Allergies Active Allergy Reactions Criticality Noted Date Comments Amoxicillin Low 08/14/1999 hives Other reaction(s): ALLERGY Cephalosporins High 08/14/1999 hives Ceclor Suprax Other reaction(s): ANAPHYLAXIS Dust Itching 07/13/2010 Sulfa Antibiotics High 07/22/2011 Swelling Other reaction(s): ANAPHYLAXIS documented as of this encounter (statuses as of 06/25/2024) Medications Medication Sig Dispensed Refills Start Date End Date Status Pre-Ivan Formula Oral Tablet Take 1 Tablet by mouth in the morning. Active Probiotic & Acidophilus Ex St Oral Capsule Take 1 Capsule by mouth in the morning and 1 Capsule at noon and 1 Capsule in the evening. Take with meals. Active documented as of this encounter (statuses as of 06/25/2024) Active Problems Problem Noted Date Diagnosed Date , supervision, high-risk, first trimest er 02/26/2024 Normal 02/17/2024 resulting from in vitro fertilization 02/17/2024 Overview: IVF through [employer]. Embryo transfer 12/19/23 = JENNY 09/05/24. Completed [...] was 3.7- 4 kg at (born in [facility]). We discussed the option of clinical monitoring [...] as of this encounter (statuses as of 06/25/2024) Resolved Problems Problem Noted Date Diagnosed Date [...] as of this encounter (statuses as of 06/25/2024) Immunizations Name Administration Dates Next Due COVID-19 [...] Influenza, Trivalen t, (IIV3), PF, (Fluzone) 07/24/2014 Seasonal Influenza, Trivalen t, (IIV3), with Preserv, (Fluzone) 10/03/2017,07/29/2016,07/07/2013,11/09 TDAP (age 10 and older)(Boostrix) 06/09/2024,11/2015 [...] money to get more. Never true 07/21/2023 Alpha Depression Scale Answer Date Recorded Alpha Depression Scale Total 8 02/17/2024 The thought [...] as of this encounter Progress Notes * Mekhi Charlie Christopher, - 06/25/2024 2:34 PM EDT MATERNAL MEDICINE VISIT Gricelda Lima is at 29w5d who presents to [facility] for an ultrasound and follow-up of her high risk . PHYSICAL EXAM: General: pleasant, alert and oriented, no acute distress She is being seen today by Maternal- Medicine for the following reasons: Problem List Items Addressed This Visit resulting from in vitro fertilization - Primary She presents for follow-up of growth secondary to a history of IVF. We reviewed the results of today's ultrasound. The estimated weight is appropriate for gestational age in the 87th percentile. The visualized anatomy is unremarkable in appearance. The KENDAL is normal. We discussed that the size is measuring at the upper range of normal. As per prior discussionand again today, the father of the baby thinks that he was 3.7-4 kg at (born in [facility]). We discussed the option of clinical monitoring [...] etiologies. I recommended follow-up after delivery with additionalassessment at that time if needed. Other Visit Diagnoses 29 weeks gestation of We reviewed today's ultrasound findings. (For full report, please refer to ultrasound report provided separately). Ms. Lima's questions were answered to her satisfaction. RECOMMENDATIONS: Recommend surveillance starting at 36 weeks secondary to IVF. Recommend follow up ultrasound with [facility] in 8 weeks for growth. Recommend delivery at 39 weeks gestation. Thank you for allowing us to participate in the care of this patient. Please call with any questions. Charlie Gaming DO 06/25/2024 2:34 PM documented in this encounter Miscellaneous Notes * Assessment & Plan Note - MekhiCharlieDO - 06/25/2024 1:48 PM EDT Associated Problem(s): resulting from in vitro fertilization She presents for follow-up of growth secondary to a history of IVF. We reviewed the results of today's ultrasound. The estimated weight is appropriate for gestational age in the 87th percentile. The visualized anatomy is unremarkable in appearance. The KENDAL is normal. We discussed that the size is measuring at the upper range of normal. As per prior discussionand again today, the father of the baby thinks that he was 3.7-4 kg at (born in [facility]). We discussed the option of clinical monitoring [...] etiologies. I recommended follow-up after delivery with additionalassessment at that time if needed. documented in this encounter Plan of Treatment Upcoming Encounters Date Type Department Care Team (Late st Contact Info) Description 06/28/2024 8:45 AM EDT Office Visit Gynecology/Obstetrics Wendy Cervantes [address] [place] [address] [place], MERY Olsen [address] [place] [address] 08/19/2024 11:00 AM EDT Imaging Maternal Medicine Jeremias Ventrua [address] [place] [address] Health Maintenance Due Date Last Done Comments COVID-19 Vaccine ( season) 2024 08/22/2021, 12/17/2020, 11/12/2020 Influenza Vaccine (FLU shot) (#1) 2024 08/20/2021, 07/20/2020, 09/21/2019, Additional history exists Depression Screening 07/21/2024 07/21/2023 Pap Smear 02/16/2027 02/17/2024, 04/2 03/2018, 10/04/2016, Additional history exists Cervical Cancer Screening [...] as of this encounter Visit Diagnoses Diagnosis resulting from in vitro fertilization in third trimester- Primary 29 weeks gestation of state, incidental documented in this encounter Care Teams Grommet Man Relationship Specialty Start Date End Date Keaton Sotomayor MD [address] [place] [address] PCP - General 07/20/00 documented as of this encounter
--- OUTSIDE RECORDS SUMMARY | 2024-08-23 04:21 | External Medical Summary | Summary of Care ---
Author Name Unknown Organization [facility] Address [address] [place] [address] Phone [phone] Care Team Providers Care Furniture Polisher Name Role Phone Keaton Sotomayor MD Primary Care Provider +1- [phone] Encounter Details Date Type Department Care Team (Late st Contact Info) Description 07/26/2024 Telephone Gynecology/Obstetrics [facility] [address] [place] [address] Bartolome Jones MD [address] [place] [address] Allergies Active Allergy Reactions Criticality Noted Date Comments Amoxicillin Low 08/14/1999 hives Other reaction(s): ALLERGY Cephalosporins High 08/14/1999 hives Ceclor Suprax Other reaction(s): ANAPHYLAXIS Dust Itching 07/13/2010 Sulfa Antibiotics High 07/22/2011 Swelling Other reaction(s): ANAPHYLAXIS documented as of this encounter (statuses as of 07/26/2024) Medications Medication Sig Dispensed Refills Start Date [...] as of this encounter (statuses as of 07/26/2024) Active Problems Problem Noted Date Diagnosed Date Anxiety during 06/28/2024 Overview: Zoloft at 30 weeks, encouraged to resume counseling Did NOT start zoloft. Looking for counseling. Referrals placed Normal 02/17/2024 resulting from in vitro fertilization 02/17/2024 Overview: IVF through [employer]. Embryo transfer 12/19/23 = JENNY 09/05/24. Completed [...] was 3.7- 4 kg at (born in [facility]). We discussed the option of clinical [...] as of this encounter (statuses as of 07/26/2024) Resolved Problems Problem Noted Date Diagnosed Date [...] as of this encounter (statuses as of 07/26/2024) Immunizations Name Administration Dates Next Due COVID-19 [...] money to get more. Never true 07/21/2023 [place] Depression Scale Answer Date Recorded [place] Depression Scale Total 8 02/17/2024 The thought [...] on file documented as of this encounter Miscellaneous Notes * Telephone Encounter - Camelia Dickerson RN - 07/26/2024 9:45 AM EDT Spoke to Dr. Jones. He agreed with nursing advice. Recommends pushing fluids/hydration, tylenol for PAULA/pain and call back with ongoing/worsening symptoms or changes. Gave her ER precautions for pain/need for IV hydration. She verbalized understanding. Patient agreeable to plan and will call with any changes or questions. Plans to keep appt tomorrow * Telephone Encounter - Camelia Dickerson RN - 07/26/2024 9:26 AM EDT patient 34w1d calling in with concerns of back pain, abd pain, nausea and vomiting, and diarrhea x 2 days. + FM Upper abd pain yesterday and throughout the night Able to drink some water around 3am , has not thrown up since. Clear/white vaginal discharge, does not need to wear a pad. Denies any vaginal bleeding Denies pain at this time, just feels sore in back and abd. Reports + Headache, has not tried tylenol today Takes BP at home, has been WNL. Will review with oncall provider, has EMILY appt tomorrow in office. Advised patient to rest, push fluids, take tylenol for pain and PAULA. Patient to call with any changes in symptoms. She verbalized understanding. documented in this encounter Plan of Treatment Upcoming Encounters Date Type Department Care Team (Late st Contact Info) Description 07/27/2024 8:00 AM EDT Office Visit Gynecology/Obstetrics Wendy Cervantes [address] [place] [address] Gay Latif CRNP [address] [place] [id number] 08/11/2024 9:00 AM EDT Office Visit Gynecology/Obstetrics Wendy Cervantes [address] [place], [place] [address] Gay Latif CRNP [address] [place] [address] Billy, Non Stress Tests [place] [address] 08/19/2024 11:00 AM EDT Imaging Maternal Medicine Imaging, [place] [id number] 08/25/2024 9:00 AM EST Office Visit Gynecology/Obstetrics Wendy Cervantes [address] [place] [address] Gay Latif CRNP [address] [place] [address] Billy, [place] [address] 09/09/2024 12:30 PM EST Telemedicine Psychology [facility] [address] [place] [address] Alisson Merino, [facility] [address] [place] [address] 10/12/2024 9:00 AM EST Telemedicine Psychology, [place] [address] [place] [phone] Lester Gonzalez PsyD [address] [place], [place] [id number] Health Maintenance Due Date Last Done Comments [...] Not on filedocumented as of this encounter Care Teams Furniture Polisher Relationship Specialty Start Date End Date Keaton Sotomayor MD [address] [place] [address] PCP - General 07/20/00 documented as of this encounter
--- OUTSIDE RECORDS SUMMARY | 2024-08-23 04:21 | External Medical Summary | Summary of Care ---
Author Name Unknown Organization [facility] Address [address] [facility] [place] [address] Phone [phone] Care Team Providers Care Instructor Of Spanish Name Role Phone Keaton Sotomayor MD Primary Care Provider +1- [phone] Encounter Details Date Type Department Care Team ([facility] st Contact Info) Description 07/30/2024 Telephone Gynecology/Obstetrics, [address] [place] [address] Yon Cleaning MD [address] [place] [address] Allergies Active Allergy Reactions Criticality Noted Date Comments Amoxicillin Low 08/14/1999 hives Other reaction(s): ALLERGY Cephalosporins High 08/14/1999 hives Ceclor Suprax Other reaction(s): ANAPHYLAXIS Dust Itching 07/13/2010 Sulfa Antibiotics High 07/22/2011 Swelling Other reaction(s): ANAPHYLAXIS documented as of this encounter (statuses as of 07/30/2024) Medications Medication Sig Dispensed Refills Start Date [...] as of this encounter (statuses as of 07/30/2024) Active Problems Problem Noted Date Diagnosed Date Anxiety during 06/28/2024 Overview: Zoloft at 30 weeks, encouraged to resume counseling Did NOT start zoloft. Looking for counseling. Referrals placed Normal 02/17/2024 resulting from in vitro fertilization 02/17/2024 Overview: IVF through [employer] [facility]. Embryo transfer 12/19/23 = JENNY 09/05/24. Completed [...] was 3.7- 4 kg at (born in [facility]). We discussed the option of [...] as of this encounter (statuses as of 07/30/2024) Resolved Problems Problem Noted Date Diagnosed Date [...] as of this encounter (statuses as of 07/30/2024) Immunizations Name Administration Dates Next Due COVID-19 [...] money to get more. Never true 07/21/2023 [place] Depression Scale Answer Date Recorded [place] Depression Scale Total 8 02/17/2024 The thought [...] encounter Miscellaneous Notes * Telephone Encounter - Kim South LPN - 07/30/2024 12:31 PM EDT Patient coming to the office now * Telephone Encounter - Kendra Kunz RN - 07/30/2024 12:09 PM EDT T/C from pt reporting decreased FM. States she has not felt movement since last night. Last ate soup a few minutes ago. Advised pt to drink ice water and concentrate on FKC. States she is a very anxious person and does not do FKCs. Pt tearful. Denies cramping. No soon openings found in office. [place]ra[place] pt. Please review with providers and call pt to assist. documented in this encounter Plan of Treatment Upcoming Encounters Date Type Department Care Team (Late st Contact Info) Description 07/30/2024 3:45 PM EDT Office Visit Gynecology/Obstetrics Wendy Cervantes [address] [place] [address] Bartolome Jones MD [address] [place] [address] Billy, Non Stress Tests Jeremias [address] [place] [address] 08/11/2024 9:00 AM EDT Office Visit Gynecology/Obstetrics Wendy Cervantes [address] [place] [address] Gay Latif CRNP [address] [place] [address] Billy, Non Stress Tests Jeremias [address] [place] [address] 08/19/2024 11:00 AM EDT Imaging Maternal Medicine Imaging, Jeremias Cervantes [address] [place] [address] 08/25/2024 9:00 AM EST Office Visit Gynecology/Obstetrics Wendy Cervantes [address] [place] [address] Gay Latif CRNP [address] [place] [address] Billy, Non Stress Tests Jeremias [address] [place] [address] 09/09/2024 12:30 PM EST Telemedicine Psychology [place] [address] [address] Alisson Merino, BUILDING MATERIALS SALES ATTENDANT [address] [place] [address] 10/12/2024 9:00 AM EST Telemedicine Psychology, [place] [address] [place] [address] Lester Gonzalez, PsyD [address] [place] [address] Health Maintenance Due Date Last Done Comments [...] filedocumented as of this encounter Care Teams Instructor Of Spanish Relationship Specialty Start Date End Date Keaton Sotomayor MD [address] [place], [place] [id number] PCP - General 07/20/00 documented as of this encounter
--- OUTSIDE RECORDS SUMMARY | 2024-08-23 04:21 | External Medical Summary ---
Author Name Unknown Address Unknown Organization K0G:LAB[facility]AT[facility] [place] [address] [place] [address] Laboratory Report Ordering Provider Test Date Status VERO ZARATE 06/10/2024 10:09:27 Final Observation Date Value Abnormality Reference (Units ) Status Glucose [Mass/volume] in Serum or Plasma --3 hours post dose glucose 06/10/2024 10:09:27 91 70-139 (mg/dL) Final Performing Location LABORATORY [facility] [place] [address] [place] [address]
--- OUTSIDE RECORDS SUMMARY | 2024-08-23 04:21 | External Medical Summary ---
Author Name Unknown Address Unknown Organization K0G:LABORATORY [facility] [place] [address] [place] [address] Laboratory Report Ordering Provider Test Date Status VERO ZARATE 06/10/2024 09:15:00 Final Observation Date Value Abnormality Reference (Units ) Status Glucose, 2-hr post glucose challenge 06/10/2024 09:15:00 101 70-154 (mg/dL) Final Performing Location LABORATORY [facility] [place] [address] [place] [address]
--- OUTSIDE RECORDS SUMMARY | 2024-08-23 04:21 | External Medical Summary | Summary of Care ---
Author Name Unknown Organization [facility] Address [address] [place] [place] [place] [address] Phone [phone] Care Team Providers Care Histotechnician Name Role Phone Keaton Sotomayor MD Primary Care Provider +1- [phone] Reason for Visit * Reason Comments Return Visit Encounter Details Date Type Department Care Team ([facility] st Contact Info) Description 06/28/2024 8:45 AM EDT Office Visit Gynecology/Obstetri sun Nguyen Cervantes [address] [place] [address] BackEly haji CRNP [address] [place] [address] Normal in third trimester*; resulting from in vitro fertilization in third trimester; Rh negative status during in third trimester; Family history of hemochromatosis; Anxiety during Allergies Active Allergy Reactions Criticality Noted Date Comments Amoxicillin Low 08/14/1999 hives Other reaction(s): ALLERGY Cephalosporins High 08/14/1999 hives Ceclor Suprax Other reaction(s): ANAPHYLAXIS Dust Itching 07/13/2010 Sulfa Antibiotics High 07/22/2011 Swelling Other reaction(s): ANAPHYLAXIS documented as of this encounter (statuses as of 06/28/2024) Medications Medication Sig Dispensed Refills Start Date End Date Status Pre-Ivan Formula Oral Tablet Take 1 Tablet by mouth in the morning. Active Probiotic & Acidophilus Ex St Oral Capsule Take 1 Capsule by mouth in the morning and 1 Capsule at noon and 1 Capsule in the evening. Take with meals. Active Sertraline HCl 25 MG Oral Tablet (Zoloft)Indications:A nxiety during Take 1 Tablet by mouth in the morning. 90 Tablet 1 06/28/2024 Active documented as of this encounter (statuses as of 06/28/2024) Active Problems Problem Noted Date Diagnosed Date Anxiety during 06/28/2024 Overview: Zoloft at 30 weeks, encouraged to resume counseling Normal 02/17/2024 resulting from in vitro fertilization 02/17/2024 Overview: IVF through [employer]. Embryo transfer 12/19/23 = JENNY 09/05/24. Completed [...] was 3.7- 4 kg at (born in [facility]). We discussed the option of [...] as of this encounter (statuses as of 06/28/2024) Resolved Problems Problem Noted Date Diagnosed Date [...] as of this encounter (statuses as of 06/28/2024) Immunizations Name Administration Dates Next Due COVID-19 [...] money to get more. Never true 07/21/2023 Douglas Depression Scale Answer Date Recorded Douglas Depression Scale Total 8 02/17/2024 The thought [...] Sign Reading Time Taken Comments Blood Pressure 112/64 06/28/2024 8:37 AM EDT Pulse - - Temperature - - Respiratory Rate - - Oxygen Saturation - - Inhaled Oxygen Concentration - - Weight 84.4 kg (186 lb) 06/28/2024 8:37 AM EDT Height - - Body Mass Index 28.28 06/09/2024 8:26 AM EDT documented in this encounter Progress Notes * Ely Theodore CRNP - 06/28/2024 8:42 AM EDT 30w1d Growth u/s completed with MFM last week. Baby is very active; no leaking, bleeding, ctx. Will use [facility]. Anxiety is increasing - sister had a baby at 31 weeks, he is doing well. Pt was on Celexa prior to undergoing IVF, and saw a therapist. Discussed risks and benefits of SSRI use in , risks ofuntreated maternal anxiety. Discussed small increase in bleeding risk with Celexa in particular. She'd like to try a different SSRI, rx sent for Zoloft. Discussed s/e, call office with any worsening mood or concerns. Recommend restarting therapy, encouraged her to let us know if she needs help withthis. 2 week return MERY Sparks documented in this encounter Plan of Treatment Upcoming Encounters Date Type Department Care Team (Late st Contact Info) Description 07/13/2024 8:00 AM EDT Office Visit Gynecology/Obstetrics Wendy Cervantes [address] [place] [address] Gay Latif CRNP [address] [place] [address] 08/19/2024 11:00 AM EDT Imaging Maternal Medicine Jeremias Ventura [address] [place] [phone] Health Maintenance Due Date Last Done Comments [...] during documented in this encounter Care Teams Histotechnician Relationship Specialty Start Date End Date Keaton Sotomayor MD [address] [place] [address] PCP - General 07/20/00 documented as of this encounter
--- OUTSIDE RECORDS SUMMARY | 2024-08-23 04:21 | External Medical Summary | Summary of Care ---
Author Name Unknown Organization [facility] Address [address] [place] [place] [address] Phone [phone] Care Team Providers Care Water Trainer Name Role Phone Keaton Sotomayor MD Primary Care Provider +1- [phone] Reason for Visit * Reason Comments Acute Encounter Details Date Type Department Care Team ([facility] st Contact Info) Description 06/16/2024 7:40 AM EDT Telemedicine [facility] [place] [address] [place] [address] Keaton Lopez PA-C [address] [place] [address] Exposure to bat without known bite* Allergies Active Allergy Reactions Criticality Noted Date Comments Amoxicillin Low 08/14/1999 hives Other reaction(s): ALLERGY Cephalosporins High 08/14/1999 hives Ceclor Suprax Other reaction(s): ANAPHYLAXIS Dust Itching 07/13/2010 Sulfa Antibiotics High 07/22/2011 Swelling Other reaction(s): ANAPHYLAXIS documented as of this encounter (statuses as of 06/16/2024) Medications Medication Sig Dispensed Refills Start Date End Date Status Pre- Formula Oral Tablet Take 1 Tablet by mouth in the morning. Active Probiotic & Acidophilus Ex St Oral Capsule Take 1 Capsule by mouth in the morning and 1 Capsule at noon and 1 Capsule in the evening. Take with meals. Active documented as of this encounter (statuses as of 06/16/2024) Active Problems Problem Noted Date Diagnosed Date , supervision, high-risk, first trimest er 02/26/2024 Normal 02/17/2024 resulting from in vitro fertilization 02/17/2024 Overview: IVF through [employer]. Embryo transfer 12/19/23 = JENNY 09/05/24. Completed [...] Plan: Patient reports completing genetic counseling through [facility]. Declines additional genetic counseling. Recurrent sinus infections 04/07/2020 Anterior knee pain, left 07/08/2019 Patellar dislocation, left, initial encounter Patellofemoral pain syndrome of left knee 2018 Chronic rhinitis 09/03/2017 Anxiety 09/03/2017 Estimated Date of Delivery Comme nts Yes 09/05/2024 Based on Embryo Transfer documented as of this encounter (statuses as of 06/16/2024) Resolved Problems Problem Noted Date Diagnosed Date [...] as of this encounter (statuses as of 06/16/2024) Immunizations Name Administration Dates Next Due COVID-19 [...] money to get more. Never true 07/21/2023 [place] Depression Scale Answer Date Recorded [place] Depression Scale Total 8 02/17/2024 The thought [...] 07/21/2023 Does the household have a re lar source of income? (Household - for ages [...] on file documented as of this encounter Nursing Notes * Lakesha Cano LPN - 06/16/2024 7:35 AM EDT 7 months came in contact with farida blood. Has an open cut on thumb, Bat was when she came into contact. documented in this encounter Plan of Treatment Upcoming Encounters Date Type Department Care Team (Late st Contact Info) Description 06/25/2024 1:45 PM EDT Office Visit Quote Clerk Obstetrics Maternal Medicine, [address] [address] Charlie Gaming, DO [address] [place] [address] 06/25/2024 1:45 PM EDT Imaging [facility] [address] [place] [address] 06/28/2024 8:45 AM EDT Office Visit Gynecology/Obstetrics Wendy Cervantes [address] [place] [address] Ely Theodore CRNP [address] [place] [address] Health Maintenance Due Date Last Done Comments [...] as of this encounter Visit Diagnoses Diagnosis Exposure to bat without known bite- Primary Contact with or exposure to unspecified communicable disease documented in this encounter Care Teams Water Trainer Relationship Specialty Start Date End Date Keaton Sotomayor MD [address] [place] [address] PCP - General 07/20/00 documented as of this encounter
--- OUTSIDE RECORDS SUMMARY | 2024-08-23 04:21 | External Medical Summary | Summary of Care ---
Author Name Unknown Organization [facility] Address [address] [place] [address] Phone [phone] Care Team Providers Care District Manager Primary Care Sales Name Role Phone Keaton Sotomayor MD Primary Care Provider +1- [phone] Reason for Visit * Reason Comments Return Visit Non Stress Test Encounter Details Date Type Department Care Team (Latest Contact Info) Description 08/11/2024 9:00 AM EDT Office Visit Gynecology/Obstetric s Jean's Cervantes [address] [facility] [place] [address] Gay Latif CRNP [address] [place] [address] Cervantes, Non Stress Tests Jeremias [address] [place] [address] Normal in third trimester*; resulting from in [...] as of this encounter (statuses as of 08/11/2024) Medications Medication Sig Dispensed Refills Start Date [...] as of this encounter (statuses as of 08/11/2024) Active Problems Problem Noted Date Diagnosed Date Anxiety during 06/28/2024 Overview: Zoloft at 30 weeks, encouraged to resume counseling Did NOT start zoloft. Looking for counseling. Referrals placed Normal 02/17/2024 resulting from in vitro fertilization 02/17/2024 Overview: IVF through [facility]. Embryo transfer 12/19/23 = JENNY 09/05/24. Completed [...] was 3.7- 4 kg at (born in [facility]). We discussed the option of [...] Patient reports completing genetic counseling through [facility]. Declines additional genetic counseling. Recurrent sinus infections 04/07/2020 Anterior knee pain, left 07/08/2019 Patellar dislocation, left, initial encounter Patellofemoral pain syndrome of left knee 2018 Chronic rhinitis 09/03/2017 Anxiety 09/03/2017 Estimated Date of Delivery Comme nts Yes 09/05/2024 Based on Embryo Transfer documented as of this encounter (statuses as of 08/11/2024) Resolved Problems Problem Noted Date Diagnosed Date [...] as of this encounter (statuses as of 08/11/2024) Immunizations Name Administration Dates Next Due COVID-19 [...] money to get more. Never true 07/21/2023 [place] Depression Scale Answer Date Recorded [place] Depression Scale Total 8 02/17/2024 The thought [...] Sign Reading Time Taken Comments Blood Pressure 126/72 08/11/2024 8:57 AM EDT Pulse - - Temperature - - Respiratory Rate - - Oxygen Saturation - - Inhaled Oxygen Concentration - - Weight 87.1 kg (192 lb) 08/11/2024 8:57 AM EDT Height - - Body Mass Index 29.19 07/13/2024 8:12 AM EDT documented in this encounter Progress Notes * Gay Latif CRNP - 08/11/2024 10:06 AM EDT 36w3d Thinks she lost some of her mucus plug. No contractions, no bleeding or LOF. GBS today. [employer] Teacher Documentation Provider requested child care associate. Name of child care associate: Queenie ASSESSMENT assessment with Non-stress Test completed on 08/11/2024 at 36.3weeks gestation for indicationof IVF heart baseline: 130 bpm Variability: Moderate Decelerations: absent Accelerations: present Contractions: None NST start time: 0851 NST stop time: 928 NST strip reviewed, interpreted, and approved by OB provider, MERY Shabazz . NST strip stored in clinic storage file * Queenie Steel CMA - 08/11/2024 8:57 AM EDT 36w3d Possible loss of mucus plug. GBS swab today. Cervical check. documented in this encounter Plan of Treatment Upcoming Encounters Date Type Department Care Team (Late st Contact Info) Description 08/19/2024 11:00 AM EDT Imaging Maternal Medicine Imaging, Jeremias Cervantes [address] [place] [phone] 08/19/2024 2:15 PM EDT Office Visit Gynecology/Obstetrics Wendy Cervantes [address] [place] [address] Gay Latif CRNP [address] [place] [address] 08/25/2024 9:00 AM EST Office Visit Gynecology/Obstetrics Wendy Cervantes [address] [place] [address] Gay Latif CRNP [address] [place] [address] Billy, Non Stress [place] [address] 09/09/2024 12:30 PM EST Telemedicine Psychology [facility] [address] [place] [address] Alisson Merino, CELLULAR EQUIPMENT REPAIRER [address] [place] [address] 10/12/2024 9:00 AM EST Telemedicine Psychology, [place] [address] [place] [address] Lester Gonzalez PsyD [address] [place], [place] [phone] Pending Results Name Type Priority Associated Diagnoses Date /Time GROUP B STREP CULTURE/PCR Lab Routine Normal in third trimester 08/11/2024 9:52 AM EDT Scheduled Orders Name Type Priority Associated Diagnoses Orde r Schedule GROUP B STREP CULTURE/PCR Lab Routine Normal in third trimester Expected: 08/11/2024, Expires: 08/11/2025 Health Maintenance Due Date Last Done Comments [...] during documented in this encounter Care Teams District Manager Primary Care Sales Relationship Specialty Start Date End Date Keaton Sotomayor MD [address] [place] [address] PCP - General 07/20/00 documented as of this encounter
--- OUTSIDE RECORDS SUMMARY | 2024-08-23 04:21 | External Medical Summary | Summary of Care ---
Author Name Unknown Organization [facility] Address [address] [place] [address] Phone [phone] Care Team Providers Care Fish Salter Name Role Phone Keaton Sotomayor MD Primary Care Provider +1- [phone] Reason for Referral * Evaluate & Treat - Unlimited Visits (Within 10 days (routine)) - Pending Review Specialty Diagnoses / Procedures Referred By Speedy santana Referred To Contact Behavioral Medicine / Psychology Diagnoses Anxiety during Gay Latif CRNP [address] [place] [address] DEPT CLOSED - 08/22/22 [address] [place] [address] Referral ID Status Reason Start Date Expiration Date Visits Requested Visits Authorized [id number] Pending Review Specialty Services Required 07/13/[phone] Question Answer Referral Priority Within 10 days (routine) Where should this appointment be scheduled? [facility] Comments Anxiety * Evaluate & Treat - Unlimited Visits (Within 10 days (routine)) - Pending Review Specialty Diagnoses / Procedures Referred By Speedy santana Referred To Contact Psychology Diagnoses Anxiety during Gay Latif CRNP [address] [place] [address] Referral ID Status Reason Start Date Expiration Date Visits Requested Visits Authorized [id number] Pending Review Specialty Services Required 07/13/[phone] Question Answer Referral Priority Within 10 days (routine) Where should this appointment be scheduled? [facility] Is this referral for medication management? No Reason for Referral: Depression/Anxiety/Bipolar Specific Condition? Generalized Anxiety/Worry Comments Anxiety in Reason for Visit * Reason Comments Return Visit Encounter Details Date Type Department Care Team ([facility] st Contact Info) Description 07/13/2024 8:00 AM EDT Office Visit Gynecology/Obstetric s Wendy Cervantes [address] [place] [address] Gay Latif CRNP [address] [place] [address] Normal in third trimester*; resulting from in vitro fertilization, antepartum; Rh negative, antepartum; Family history of hemochromatosis; Anxiety during ; Need for RSV vaccination Allergies Active Allergy Reactions Criticality Noted Date Comments Amoxicillin Low 08/14/1999 hives Other reaction(s): ALLERGY Cephalosporins High 08/14/1999 hives Ceclor Suprax Other reaction(s): ANAPHYLAXIS Dust Itching 07/13/2010 Sulfa Antibiotics High 07/22/2011 Swelling Other reaction(s): ANAPHYLAXIS documented as of this encounter (statuses as of 07/13/2024) Medications Medication Sig Dispensed Refills Start Date [...] as of this encounter (statuses as of 07/13/2024) Active Problems Problem Noted Date Diagnosed Date Anxiety during 06/28/2024 Overview: Zoloft at 30 weeks, encouraged to resume counseling Did NOT start zoloft. Looking for counseling. Referrals placed Normal 02/17/2024 resulting from in vitro fertilization 02/17/2024 Overview: IVF through [employer] [facility]. Embryo transfer 12/19/23 = JENNY 09/05/24. Completed [...] was 3.7- 4 kg at (born in [facility]). We discussed the option of clinical [...] Plan: Patient reports completing genetic counseling through [employer]. Declines additional genetic counseling. Recurrent sinus infections 04/07/2020 Anterior knee pain, left 07/08/2019 Patellar dislocation, left, initial encounter Patellofemoral pain syndrome of left knee 2018 Chronic rhinitis 09/03/2017 Anxiety 09/03/2017 Estimated Date of Delivery Comme nts Yes 09/05/2024 Based on Embryo Transfer documented as of this encounter (statuses as of 07/13/2024) Resolved Problems Problem Noted Date Diagnosed Date [...] as of this encounter (statuses as of 07/13/2024) Immunizations Name Administration Dates Next Due COVID-19 [...] F, Pf,0.5 Ml (Abrysvo) 07/13/2024 Seasonal Influenza Virus Vac cine, Unspecified Formulation [...] money to get more. Never true 07/21/2023 [place] Depression Scale Answer Date Recorded [place] Depression Scale Total 8 02/17/2024 The thought [...] No 07/21/2023 Does the household have a [facility] source of income? (Household - for ages [...] Sign Reading Time Taken Comments Blood Pressure 114/74 07/13/2024 8:12 AM EDT Pulse - - Temperature - - Respiratory Rate - - Oxygen Saturation - - Inhaled Oxygen Concentration - - Weight 84.8 kg (187 lb) 07/13/2024 8:12 AM EDT Height 172.7 cm (5' 8") 07/13/2024 8:12 AM EDT Body Mass Index 28.43 07/13/2024 8:12 AM EDT documented in this encounter Progress Notes * Gay Latif CRNP - 07/13/2024 8:48 AM EDT 32w2d Did not start zoloft- read side effects and was fearful of it causing harm to her baby. She states she is feeling significantly better than she did last visit- her increased anxiety has improved. Sheis still looking for a mental health provider, asking for referrals as well. Referrals placed for [facility] and general psych. No other concerns. Baby is active. No contractions or bleeding. RSV vaccine today. MERY Shabazz documented in this encounter Nursing Notes * Lesley Gould LPN - 07/13/2024 8:53 AM EDT Patient here for rsv injection. Patient doing well no complaints. Injection given IM as ordered. Patient tolerated well. Patient to follow up as directed. Patient instructed to call if any complications. Patient verbalized understanding of instructions given and her follow up appt for EMILY Injection site: Left Deltoid Medication Source: Dispensed stock medication * Lesley Gould LPN - 07/13/2024 8:13 AM EDT 32w1d Did not start zoloft- was concerned after reading information on side effects, would like to start talk therapy. Isn't able to get into any local or telemed psych offices. documented in this encounter Plan of Treatment Upcoming Encounters Date Type Department Care Team (Late st Contact Info) Description 07/27/2024 8:00 AM EDT Office Visit Gynecology/Obstetrics Wendy Castillos [address] [place] [address] Gay Latif CRNP [address] [facility] [place] [address] 08/10/2024 8:00 AM EDT Nurse Only Treer Obstetrics Maternal Medicine [facility], [place] Sam [address] [facility] [place] [address] Mfm, Assessment Chair 1 [facility] [address] [address] 08/19/2024 11:00 AM EDT Imaging Maternal Medicine Imaging, Jeremias [facility] [address] [place] [phone] 09/09/2024 12:30 PM EST Telemedicine Psychology Pj Ndi[facility] [address] [place] [address] Alisson Merino, RECRUITING OPERATIONS CONSULTANT 9 [place] [address] Scheduled Referrals Name Type Priority Associated Diagnoses Orde r Schedule ADULT/PEDS PSYCHOLOGY REFERRAL OP Referral Within 10 days (routine) Anxiety during Ordered: 07/13/2024 [facility] REFERRAL OP Referral Within 10 days (routine) Anxiety during Ordered: 07/13/2024 Health Maintenance Due Date Last Done Comments [...] third trimester- Primary resulting from in vitro fertilization, antepartum Rh negative, antepartum Rhesus isoimmunization affecting management of mother, antepartum condition Family history of hemochromatosis Family history of other endocrine and metabolic diseases Anxiety during Need for RSV vaccination Need for prophylactic vaccination and inoculation against respiratory syncytial virus documented in this encounter Care Teams Fish Salter Relationship Specialty Start Date End Date Keaton Sotomayor MD [address] [place] [address] PCP - General 07/20/00 documented as of this encounter
--- OUTSIDE RECORDS SUMMARY | 2024-08-23 04:21 | External Medical Summary ---
Author Name Unknown Address Unknown Organization K01:[facility] [place] [address] [place] [address] Laboratory Report Ordering Provider Test Date Status JOHN FREEMAN 08/11/2024 09:52:20 Final Observation Date Value Abnormality Reference (Units ) Status Streptococcus agalactiae DNA [Presence] in Specimen by ASPEN with probe detection 08/11/2024 09:52:20 Negative Negative Final No Group B Streptococcus det ected by culture-enhanced PCR (amplified probe). GBS GBSCT - [facility] 08/11/2024 09:52:20 0.0 Final GBS SPCCT - [facility] 08/11/2024 09:52:20 32.2 Final Performing Location LAB[facility]ATORY [facility] - [address] [place] [address]
--- OUTSIDE RECORDS SUMMARY | 2024-08-23 04:21 | External Medical Summary | Summary of Care ---
Author Name Unknown Organization [facility] Address [address] [place] [address] Phone [phone] Care Team Providers Care Shear Setter Name Role Phone Keaton Sotomayor MD Primary Care Provider +1- [phone] Reason for Visit * Reason Comments Return Visit Encounter Details Date Type Department Care Team (Latest Contact Info) Description 07/27/2024 8:00 AM EDT Office Visit Gynecology/Obstetric s Wendy Cervantes [address] [place] [address] Gay Latif CRNP [address] [facility] [place] [address] Normal in third trimester*; resulting [...] as of this encounter (statuses as of 07/27/2024) Medications Medication Sig Dispensed Refills Start Date [...] as of this encounter (statuses as of 07/27/2024) Active Problems Problem Noted Date Diagnosed Date Anxiety during 06/28/2024 Overview: Zoloft at 30 weeks, encouraged to resume counseling Did NOT start zoloft. Looking for counseling. Referrals placed Normal 02/17/2024 resulting from in vitro fertilization 02/17/2024 Overview: IVF through [facility]. Embryo transfer 12/19/23 = JENNY 09/05/24. Completed [...] was 3.7- 4 kg at (born in [facility]). We discussed the option of [...] as of this encounter (statuses as of 07/27/2024) Resolved Problems Problem Noted Date Diagnosed Date [...] as of this encounter (statuses as of 07/27/2024) Immunizations Name Administration Dates Next Due COVID-19 [...] money to get more. Never true 07/21/2023 [place] Depression Scale Answer Date Recorded [place] Depression Scale Total 8 02/17/2024 The thought [...] Sign Reading Time Taken Comments Blood Pressure 106/68 07/27/2024 7:56 AM EDT Pulse - - Temperature - - Respiratory Rate - - Oxygen Saturation - - Inhaled Oxygen Concentration - - Weight 87.1 kg (192 lb) 07/27/2024 7:56 AM EDT Height - - Body Mass Index 29.19 07/13/2024 8:12 AM EDT documented in this encounter Progress Notes * Gay Latif CRNP - 07/27/2024 8:24 AM EDT 34w2d Had GI bug over the weekend, feeling fine now. No other concerns. To begin NSTs at 36w. IOL in 39th week, scheduled for 08/30. Baby is active. Denies contractions, bleeding. MERY Shabazz * Queenie Steel CMA - 07/27/2024 7:56 AM EDT 34w2d Denies any concerns documented in this encounter Plan of Treatment Upcoming Encounters Date Type Department Care Team (Late st Contact Info) Description 08/11/2024 9:00 AM EDT Office Visit Gynecology/Obstetrics Wendy Cervantes [address] [place] [address] Gay Latif CRNP [address] [place] [address] Mecca Cervantes Stress Tests Jeremias [address] [place] [address] 08/19/2024 11:00 AM EDT Imaging Maternal Medicine Imaging, Jeremias Cervantes [address] [place] [phone] 08/25/2024 9:00 AM EST Office Visit Gynecology/Obstetrics Wendy Cervantes [address] [facility] [place] [address] Gay Latif CRNP [address] [place] [address] [place] Stress Tests Jeremias [address] [facility] [place] [address] 09/09/2024 12:30 PM EST [facility] [address] [place] [address] Alisson Merino, [facility] [address] [place] [address] 10/12/2024 9:00 AM EST [facility] [address] [place] [address] Lester Gonzalez, [facility] [address] [place], [place] [id number] Health Maintenance Due Date Last Done Comments [...] during documented in this encounter Care Teams Shear Setter Relationship Specialty Start Date End Date Keaton Sotomayor MD [address] [place] [address] PCP - General 07/20/00 documented as of this encounter
--- OUTSIDE RECORDS SUMMARY | 2024-08-23 04:21 | External Medical Summary ---
Author Name Unknown Address Unknown Organization K0G:[facility] [place] [address] - [address] [place] [address] Laboratory Report Ordering Provider Test Date Status VERO ZARATE 06/10/2024 07:06:22 Final Based on ACOG guideline, ges tational diabetes mellitus is diagnosed when any of the following is met:
Fasting is greater than or equal to 95 mg/dL
1 hour is greater than or equal to 180 mg/dL
2 hour is greater than or equal to 155 mg/dL
3 hour is greater than or equal to 140 mg/dL Observation Date Value Abnormality Reference (Units ) Status Glucose, fasting 06/10/2024 07:06:22 87 70- 94 (mg/dL) Final Performing Location [facility] [place] [address] - [address] [place] [address]
--- OUTSIDE RECORDS SUMMARY | 2024-08-23 04:21 | External Medical Summary | Summary of Care ---
Author Name Unknown Organization [facility] Address [address] [place] [address] Phone [phone] Care Team Providers Care Key Account Representative Name Role Phone Keaton Sotomayor MD Primary Care Provider +1- [phone] Reason for Visit * Reason Comments Return Visit Non Stress Test Encounter Details Date Type Department Care Team (Latest Contact Info) Description 07/30/2024 3:45 PM EDT Office Visit Gynecology/Obstetric s Jean's Cervantes [address] [facility] [place] [address] Bartolome Jones MD [address] [place] [address] Billy Non Stress Tests Jeremias [address] [place] [address] Normal in third trimester*; resulting from in [...] in vitro fertilization 02/17/2024 Overview: IVF through [employer]. Embryo transfer 12/19/23 = JENNY 09/05/24. Completed [...] money to get more. Never true 07/21/2023 [place] Depression Scale Answer Date Recorded [place] Depression Scale Total 8 02/17/2024 The thought [...] Sign Reading Time Taken Comments Blood Pressure 138/88 07/30/2024 1:00 PM EDT Pulse - - Temperature - - Respiratory Rate - - Oxygen Saturation - - Inhaled Oxygen Concentration - - Weight 87.7 kg (193 lb 6.4 oz) 07/30/2024 1:00 P M EDT Height - - Body Mass Index 29.41 07/13/2024 8:12 AM EDT documented in this encounter Progress Notes * Queenie Steel CMA - 07/30/2024 1:26 PM EDT 24w5d Patient present today for NST d/t decreased movement. * Bartolome Jones MD - 07/30/2024 1:24 PM EDT Acute visit De FM On arrival pt felt FM NST ASSESSMENT assessment with Non-stress Test completed on 07/30/2024 at 34weeks gestation for indication of decreased movement heart baseline: 120 bpm Variability: Moderate Decelerations: absent Accelerations: present Contractions: None NST start time: 1254 NST stop time: 1316 NST strip reviewed, interpreted, and approved by OB provider, jeffrey. NST strip stored in clinic storage file Bartolome Jones MD 07/30/2024 1:25 PM documented in this encounter Plan of Treatment Upcoming Encounters Date Type Department Care Team (Late st Contact Info) Description 08/11/2024 9:00 AM EDT Office Visit Gynecology/Obstetrics Jeansoheila Castillos [address] [place] [address] Gay Latif CRNP [address] [place] [address] Billy Non Stress Tests Jeremias [address] [place] [address] 08/19/2024 11:00 AM EDT Imaging Maternal Medicine Imaging, Jeremias Cervantes [address] [place] [phone] 08/25/2024 9:00 AM EST Office Visit Gynecology/Obstetrics TedRichardraven Cervantes [address] [place] [address] Gay Latif CRNP [address] [place] [address] Billy Non Stress Tests Jeremias [address] [place] [address] 09/09/2024 12:30 PM EST Telemedicine Psychology [place]yl [place] [address] [place] [address] Alisson Merino, MANAGER WIRELESS [address] [place] [phone] 10/12/2024 9:00 AM EST Telemedicine Psychology, [place] [address] [place] [phone] Lester Gonzalez PsyD [address] [place], [place] [phone] Health Maintenance Due Date Last Done Comments [...] during documented in this encounter Care Teams Key Account Representative Relationship Specialty Start Date End Date Keaton Sotomayor MD [address] [place] [address] PCP - General 07/20/00 documented as of this encounter
--- OUTSIDE RECORDS SUMMARY | 2024-08-23 04:21 | External Medical Summary | Summary of Care ---
Author Name Unknown Organization [facility] Address [address] [place] [address] Phone [phone] Care Team Providers Care Television Repairman Name Role Phone Keaton Sotomayor MD Primary Care Provider +1- [phone] Reason for Visit * Reason Comments Return Visit Encounter Details Date Type Department Care Team (Latest Contact Info) Description 06/09/2024 8:45 AM EDT Office Visit Gynecology/Obstetric s Wendy Cervantes [address] [place] [address] Bartolome Jones MD [address] [place] [address] Normal in third trimester*; resulting from in [...] third trimester 300 mcg IM ONCE 06/09/2024 06/09/2024 Ended documented as of this encounter (statuses as of 06/10/2024) Active Problems Problem Noted Date Diagnosed Date , supervision, high-risk, first trimest er 02/26/2024 Normal 02/17/2024 resulting from in vitro fertilization 02/17/2024 Overview: IVF through [employer]. Embryo transfer 12/19/23 = JENNY 09/05/24. Completed [...] Plan: Patient reports completing genetic counseling through [employer]. Declines additional genetic counseling. Recurrent sinus [...] Virus Vaccine (Oral) 996,02/13/1993,1991,10/11 PPD 05/06/2022, 6,05/14/2012,04/18 Seasonal Influenza Virus Vac cine, Unspecified Formulation 09/21/2019,08/03/2018,07/21/2018,10/03,07/29/2016,07/24/2014,07/07/2013 ,11/09/2009 Seasonal Influenza, PF, 6 M & above, IM , (FluLaval or Fluzone) 07/21/2018 Seasonal Influenza, Quadriva lent, No Preserve, IM 08/20/2021,07/20/2020,09/21/2019,08/30 Seasonal Influenza, Split, I IV3, No Preserve, Inj 07/24/2014 Seasonal Influenza, Split, I IV3, With Preserve, Inj 10/03/2017,07/29/2016,07/07/2013,11/09 TDAP (age 10 and older)(Boostrix) 06/09/2024,11/2015,08/28/2005 documented [...] money to get more. Never true 07/21/2023 Pomona Depression Scale Answer Date Recorded Pomona Depression Scale Total 8 02/17/2024 The thought [...] Description 06/25/2024 1:45 PM EDT Office Visit Regional Sales Leader Obstetrics Maternal Medicine, [place] [address] [place] [address] Mekhi Charlie Christopher, [address] [place] [address] 06/25/2024 1:45 PM EDT Imaging Radiology [facility], [place] [address] [place] [address] 06/28/2024 8:45 AM EDT Office Visit Gynecology/Obstetrics [facility] [address] [place] [address] BackerEly CRNP [address] [place] [address] Health Maintenance Due Date Last Done Comments COVID-19 Vaccine ( season) 2023 08/22/2021, 12/17/2020, 11/12/2020 Influenza Vaccine (FLU shot) (#1) 2024 08/20/2021, 07/20/2020, 09/21/2019, Additional history exists Depression Screening 07/21/2024 07/21/2023 Pap Smear 02/16/2027 02/17/2024, 042 03/2018, 10/04/2016, Additional history exists Cervical Cancer [...] high-risk, first trimester documented in this encounter Administered Medications Inactive Administered Medications - up to 3 most recent administrations Medication Order MAR Action Action Date Dose Rate Site Rho D Immune Globulin (Rhophylac) inj 300 mcg 300 mcg, Intramuscular, ONCE, On Fri06/09/24 at 1815, For 1 dose, Do not administer until type and screen has been collected! 1 MCG = 5 INTERNATIONAL UNITS Given 06/09/2024 8:50 AM EDT 300 mcg Ventrogluteal Left documented in this encounter Care Teams Television Repairman Relationship Specialty Start Date End Date Keaton Sotomayor MD [address] [place] [address] PCP - General 07/20/00 documented as of this encounter
--- OUTSIDE RECORDS SUMMARY | 2024-08-23 04:21 | External Medical Summary | Summary of Care ---
Author Name Unknown Organization [facility] Address [address] [place] [address] Phone [phone] Care Team Providers Care Chemistry Research Assistant Name Role Phone Keaton Sotomayor MD Primary Care Provider +1- [phone] Encounter Details Date Type Department Care Team ([facility] st Contact Info) Description 07/30/2024 Telephone Gynecology/Obstetrics, [address] [place] [address] Yon Cleaning MD [address] [place] [address] Allergies Active Allergy Reactions Criticality [...] in vitro fertilization 02/17/2024 Overview: IVF through [employer]. Embryo transfer 12/19/23 = JENNY 09/05/24. Completed [...] was 3.7- 4 kg at (born in [facility]). We discussed the option of clinical [...] money to get more. Never true 07/21/2023 Carman Depression Scale Answer Date Recorded Carman Depression Scale Total 8 02/17/2024 The thought [...] encounter Miscellaneous Notes * Telephone Encounter - Kendra Kunz RN [...] Gynecology/Obstetrics Wendy Cervantes [address] [place] [address] Bartolome Jones MD [address] [place] [address] Mecca Cervantes Stress Tests Jeremias [address] [place] [address] 08/11/2024 9:00 AM EDT Office Visit Gynecology/Obstetrics Wendy Cervantes [address] [place] [address] Gay Latif CRNP [address] [place] [address] Billy Non Stress Tests Jeremias [address] [place] [address] 08/19/2024 11:00 AM EDT Imaging Maternal Medicine Imaging, Jeremias Cervantes [address] [place] [place] [address] 08/25/2024 9:00 AM EST Office Visit Gynecology/Obstetrics Wendy Cervantes [address] [place] [address] Gay Latif CRNP [address] [place] [address] Billy, Non Stress Tests Jerem[facility] [place] [address] 09/09/2024 12:30 PM EST [facility] [address] [place] [address] Alisson Merino, [facility] [address] [place] [address] 10/12/2024 9:00 AM EST Telemedicine Psychology, [place] [address] [place] [address] Lester Gonzalez, [facility] [address] [place] [address] Health Maintenance Due Date Last [...] filedocumented as of this encounter Care Teams Chemistry Research Assistant Relationship Specialty Start Date End Date Keaton Sotomayor MD [address] [place] [address] PCP - General 07/20/00 documented as of this encounter
--- OUTSIDE RECORDS SUMMARY | 2024-08-23 04:22 | External Medical Summary ---
Author Name Unknown Address Unknown Organization K01:[facility] - [address] [place] [address] Laboratory Report Ordering Provider Test Date Status VERO ZARATE 06/09/2024 08:59:34 Final Observation Date Value Abnormality Reference (Units ) Status WBC, Total 06/09/2024 08:59:34 9.39 4.00-10.8 0 (K/uL) Final RBC 06/09/2024 08:59:34 3.93 3.85-5.15 (M/uL) Final Hemoglobin 06/09/2024 08:59:34 12.2 12.0-15.3 (g/dL) Final Anemia reflex testing trigge rs on a HGB < 12.0 for Females and HGB < 13.0 for Males in accordance with the WHO Anemia Guidelines
Anemia reflex testing triggers on a HGB < 12.0 for Females and HGB < 13.0 for Males in accordance with the WHO Anemia Guidelines HCT 06/09/2024 08:59:34 36.8 36.0-45.2 (%) Final MCV 06/09/2024 08:59:34 93.6 81.5-97.5 (fL) Final MCH 06/09/2024 08:59:34 31.0 27.0-34.0 (pg) Final MCHC 06/09/2024 08:59:34 33.2 32.0-36.0 (g/dL) Final RDW 06/09/2024 08:59:34 12.9 11.5-15.5 (%) Final Platelets 06/09/2024 08:59:34 306 140-400 (K /uL) Final MPV 06/09/2024 08:59:34 9.1 6.6-11.1 ( fL) Final Nucleated erythrocytes/100 leukocytes [Ratio] in Blood by Automated count 06/09/2024 08:59:34 0 <=0 (/100 WBCs) [facility] Performing Location [facility] [address] [facility] [address]
--- OUTSIDE RECORDS SUMMARY | 2024-08-23 04:22 | External Medical Summary ---
Author Name Unknown Address Unknown Organization K01:[facility] [address] [facility] [address] Laboratory Report Ordering Provider Test Date Status VERO ZARATE 06/09/2024 08:59:34 Final Observation Date Value Abnormality Reference (Units ) Status Treponema pallidum Ab [Presence] in Serum by Immunoassay 06/09/2024 08:59:34 Nonreactive Nonreactive Final No serologic evidence of syp hilis. No additional testing clinicially indicated at this time. Consider repeat testing in 2-4 weeks if acute or primary syphilis is suspected. Performing Location [facility] [place] [address] [place] [address]
--- OUTSIDE RECORDS SUMMARY | 2024-08-23 04:22 | External Medical Summary | Summary of Care ---
Author Name Unknown Organization [facility] Address [address] [place] [address] Phone [phone] Care Team Providers Care Staff Air Defense Officer Name Role Phone Keaton Sotomayor MD Primary Care Provider +1- [phone] Reason for Visit * Evaluate & Treat - Unlimited Visits (Within 10 days (routine)) - Authorized Specialty Diagnoses / Procedures Referred By Speedy santana Referred To Contact Obstetrics/Gynecology / Maternal Medicine Diagnoses Normal in first trimester resulting from in vitro fertilization in first trimester Ely Theodore CRNP [address] [place] [address] Referral ID Status Reason Start Date Expiration Date Visits Requested Visits Authorized [id number] Authorized Specialty Services Required 02/17/2024 02/16/[phone] Encounter Details Date Type Department Care Team (Latest Contact Info) Description 04/16/2024 1:30 PM EDT Office Visit Apple Press Operator Obstetrics Maternal Medicine, [place] [address] [place] [address] Charlie Gaming DO [address] [place] [address] resulting from in vitro fertilization in second trimester* Allergies Active Allergy Reactions Criticality Noted Date Comments Amoxicillin Low 08/14/1999 hives Other reaction(s): ALLERGY Cephalosporins High 08/14/1999 hives Ceclor Suprax Other reaction(s): ANAPHYLAXIS Dust Itching 07/13/2010 Sulfa Antibiotics High 07/22/2011 Swelling Other reaction(s): ANAPHYLAXIS documented as of this encounter (statuses as of 04/16/2024) Medications Medication Sig Dispensed Refills Start Date End Date Status Pre- Formula Oral Tablet Take 1 Tablet by mouth in the morning. Active documented as of this encounter (statuses as of 04/16/2024) Active Problems Problem Noted Date Diagnosed Date , supervision, high-risk, first trimest er 02/26/2024 Normal 02/17/2024 resulting from in vitro fertilization 02/17/2024 Overview: IVF through [employer]. Embryo transfer 12/19/23 = JENNY 09/05/24. Completed [...] Plan: Patient reports completing genetic counseling through [employer]. Declines additional genetic counseling. Recurrent sinus infections 04/07/2020 Anterior knee pain, left 07/08/2019 Patellar dislocation, left, initial encounter Patellofemoral pain syndrome of left knee 2018 Chronic rhinitis 09/03/2017 Anxiety 09/03/2017 Estimated Date of Delivery Comme nts Yes 09/05/2024 Based on Embryo Transfer documented as of this encounter (statuses as of 04/16/2024) Resolved Problems Problem Noted Date Diagnosed Date [...] as of this encounter (statuses as of 04/16/2024) Immunizations Name Administration Dates Next Due COVID-19 [...] Inj 10/03/2017,07/29/2016,07/07/2013,11/09 TDAP (age 10 and older)(Boostrix) 12/20/2015 documented as of this encounter Social History [...] money to get more. Never true 07/21/2023 Fair[place] Depression Scale Answer Date Recorded [place] Depression Scale Total 8 02/17/2024 The thought [...] No 07/21/2023 Does the household have a [facility] source of income? (Household - for [...] as of this encounter Progress Notes * Charlie Gaming, - 04/16/2024 6:03 PM EDT MATERNAL MEDICINE VISIT Gricelda Lima is at 19w5d who presents to [facility] for an ultrasound and follow-up of her high risk . PHYSICAL EXAM: General: pleasant, alert and oriented, no acute distress She is being seen today by Maternal- Medicine for the following reasons: Problem List Items Addressed This Visit resulting from in vitro fertilization - Primary She presents for a anatomy survey and [...] identify all anomalies, but it is reassuring thatno anomalies were seen today. We discussed that the size is measuring about 1 week ahead. The father of the baby reports that he was over 4000g at . We reviewed the possibility of larger measurements later in , though sometimes measurements can move closer to average as well. We will mclain to reassess in -72 weeks. We reviewed some considerations regarding delivery timing given a history of IVF. We reviewed today's ultrasound findings. (For full report, please refer to ultrasound report provided separately). Ms. Lima's questions were answered to her satisfaction. RECOMMENDATIONS: Recommend surveillance starting at 36 weeks secondary to IVF. Recommend follow up ultrasound with MFM in 10-12 weeks for growth. Consider delivery at 39 weeks gestation. Thank you for allowing us to participate in the care of this patient. Please call with any questions. Charlie Gaming DO 04/16/2024 6:05 PM documented in this encounter Miscellaneous Notes * Assessment & Plan Note - Charlie Gaming DO - 04/16/2024 5:57 PM EDT Associated Problem(s): resulting from in vitro fertilization She presents for a anatomy survey and [...] identify all anomalies, but it is reassuring thatno anomalies were seen today. We discussed that the size is measuring about 1 week ahead. The father of the baby reports that he was over 4000g at . We reviewed the possibility of larger measurements later in , though sometimes measurements can move closer to average as well. We will mclain to reassess in [id number] weeks. We reviewed some considerations regarding delivery timing given a history of IVF. documented in this encounter Plan of Treatment Upcoming Encounters Date Type Department Care Team (Late st Contact Info) Description 04/19/2024 7:45 AM EDT Office [facility] [address] [place] [address] Eunice Shaw PA-C [address] [place] [address] 06/25/2024 1:45 PM EDT Office Visit Apple Press Operator Obstetrics Maternal Medicine, [place] [address], [place] [id number] Charlie Gaming DO [address] [place] [address] 06/25/2024 1:45 PM EDT Imaging Radiology [facility], [place] [address] [place] [address] Health Maintenance Due Date Last Done Comments COVID-19 Vaccine (2022- season) 2023 08/22/2021, 12/17/2020, 11/12/2020 Influenza Vaccine (FLU shot) (Season Ended) 2024 08/20/2021, 07/20/2020, 09/21/2019, Additional history exists Depression Screening 07/21/2024 07/21/2023 DTaP,Tdap,and Td Vaccines (8 - Td or Tdap) 12/19/2025 12/20/2015, 08/28/2005, 09/03/1996, Additional history exists Pap Smear 02/16/2027 02/17/2024, 01/19, 10/04/2016, Additional history exists Cervical Cancer Screening 02/16/2029 HPV/Co-Test 02/16/2029 02/17/2024 Hepatitis B Completed 05/14/1995, 12/19, 11/12/1994 MENINGOCOCCAL (MENACTRA/MENVEO) Aged Out 03/03/2007, 03/03/2007 No longer eligibl e based on patient's age to complete this topic GARDASIL-HPV IMMUNIZATION SERIES Completed 07/08/2007, 03/03/2007, 12/30/2006 Pneumococcal Vaccine: Pediatrics (0 to 5 Years) and At-Risk Patients (6 to 64 Years) Aged Out No longer eligible based on patient's age to complete this topic documented as of this encounter Medical Devices Not on filedocumented as of this encounter Visit Diagnoses Diagnosis resulting from in vitro fertilization in second trimester- Primary documented in this encounter Care Teams Staff Air Defense Officer Relationship Specialty Start Date End Date Keaton Sotomayor MD [address] [place] [address] PCP - General 07/20/00 documented as of this encounter
--- OUTSIDE RECORDS SUMMARY | 2024-08-23 04:22 | External Medical Summary | Summary of Care ---
Author Name Unknown Organization [facility] Address [address] [facility] [place] [address] Phone [phone] Care Team Providers Care Cottonseed Meat Presser Name Role Phone Keaton Sotomayor MD Primary Care Provider +1- [phone] Encounter Details Date Type Department Care Team (Late st Contact Info) Description 05/18/2024 Telephone [facility] [address] [place] [address] Eunice Shaw PA-C [address] [place] [address] Allergies Active Allergy Reactions Criticality Noted Date Comments Amoxicillin Low 08/14/1999 hives Other reaction(s): ALLERGY Cephalosporins High 08/14/1999 hives Ceclor Suprax Other reaction(s): ANAPHYLAXIS Dust Itching 07/13/2010 Sulfa Antibiotics High 07/22/2011 Swelling Other reaction(s): ANAPHYLAXIS documented as of this encounter (statuses as of 05/26/2024) Medications Medication Sig Dispensed Refills Start Date End Date Status Pre-Ivan Formula Oral Tablet Take 1 Tablet by mouth in the morning. Active documented as of this encounter (statuses as of 05/26/2024) Active Problems Problem Noted Date Diagnosed Date , supervision, high-risk, first trimest er 02/26/2024 Normal 02/17/2024 resulting from in vitro fertilization 02/17/2024 Overview: IVF through [employer]. Embryo transfer 12/19/23 = JENNY 09/05/24. Completed [...] Plan: Patient reports completing genetic counseling through [employer]. Declines additional genetic counseling. Recurrent sinus infections 04/07/2020 Anterior knee pain, left 07/08/2019 Patellar dislocation, left, initial encounter Patellofemoral pain syndrome of left knee 2018 Chronic rhinitis 09/03/2017 Anxiety 09/03/2017 Estimated Date of Delivery Comme nts Yes 09/05/2024 Based on Embryo Transfer documented as of this encounter (statuses as of 05/26/2024) Resolved Problems Problem Noted Date Diagnosed Date [...] as of this encounter (statuses as of 05/26/2024) Immunizations Name Administration Dates Next Due COVID-19 [...] money to get more. Never true 07/21/2023 Webster Depression Scale Answer Date Recorded Webster Depression Scale Total 8 02/17/2024 The thought [...] encounter Miscellaneous Notes * Telephone Encounter - Eunice Shaw PA-C - 05/26/2024 12:57 PM EDT No concerns. Reference ranges on these labs are for non- patients. Ketones typically mean dehydration so she should continue to ensure she is drinking plenty of water. Small amount of proteinmay be due to the blood in urine. Her blood pressures have all been normal, so again no concerns for HTN at this time. With culture coming back normal, no concerns with other resulting flagging. * Telephone Encounter - Eunice Shaw PA-C - 05/18/2024 2:25 PM EDT Please let her know urine culture was normal. No infection. She did still have some trace blood in urine. This may be due to . Can have repeat urine testing through PCP office after deliveryto ensure resolved, but nothing further needed at this time. documented in this encounter Plan of Treatment Upcoming Encounters Date Type Department Care Team (Late st Contact Info) Description 06/09/2024 8:20 AM EDT Laboratory Laboratory, [facility] [address] [facility] [address] [facility] [address] [facility] [place] [address] 06/09/2024 8:45 AM EDT Office Visit Gynecology/Obstetrics [facility] [address] [facility] [place] [address] Bartolome Jones MD 132 [facility] [place] [address] 06/25/2024 1:45 PM EDT Office Visit House Calls Nurse Practitioner Obstetrics Maternal Medicine, [place] [address] [place], [place] [id number] Charlie Gaming, [address] [place], [place] [phone] 06/25/2024 1:45 PM EDT Imaging Radiology [facility] [address] [place] [address] Health Maintenance Due Date Last [...] Screening 02/16/2029 HPV/Co-Test 02/16/2029 02/17/2024 Hepatitis B Vaccine Completed 05/14/1995, 01/09/1995, 11/12/1994 [...] filedocumented as of this encounter Care Teams Cottonseed Meat Presser Relationship Specialty Start Date End Date Keaton Sotomayor MD [address] [place] [address] PCP - General 07/20/00 documented as of this encounter
--- OUTSIDE RECORDS SUMMARY | 2024-08-23 04:22 | External Medical Summary | Summary of Care ---
Author Name Unknown Organization [facility] Address [address] [place] [address] Phone [phone] Care Team Providers Care Development Mechanic Name Role Phone Keaton Sotomayor MD Primary Care Provider +1- [phone] Reason for Visit * Reason Comments Outpatient Testing Encounter Details Date Type Department Care Team (Late st Contact Info) Description 06/09/2024 8:20 AM EDT Laboratory Laboratory, [facility] [address] [place] [address] [facility] [address] [place] [address] Normal in second trimester; Rh negative status during in second trimester Allergies Active Allergy Reactions Criticality Noted [...] in vitro fertilization 02/17/2024 Overview: IVF through [employer]. Embryo transfer 12/19/23 = JENNY 09/05/24. Completed [...] Plan: Patient reports completing genetic counseling through [employer]. Declines additional genetic counseling. Recurrent sinus infections [...] money to get more. Never true 07/21/2023 [place] Depression Scale Answer Date Recorded [place] Depression Scale Total 8 02/17/2024 The thought [...] Description 06/25/2024 1:45 PM EDT Office Visit Double Needle Stitcher Obstetrics Maternal Medicine, [place] [address] [place] [address] Charlie Gaming DO [address] [place] [address] 06/25/2024 1:45 PM EDT [facility] [place] [address] [place] [address] 06/28/2024 8:45 AM EDT Office Visit Gynecology/Obstetrics [address] [place] [address] Ely Theodore CRNP [address] [place] [address] Pending Results Name Type Priority Associated Diagnoses Date /Time 50-G GESTATIONAL GLUCOSE, 1 HOUR Lab Routine Normal in second trimester 06/09/2024 8:59 AM EDT SYPHILIS ANTIBODY SCREEN WITH REFLEX TO RPR Lab Routine Normal in second trimester 06/09/2024 8:59 AM EDT CBC WITH WBC DIFFERENTIAL AND ANEMIA REFLEX WORKUP Lab Routine Normal in second trimester 06/09/2024 8:59 AM EDT TYPE AND SCREEN Lab Routine Rh negative status during in second trimester 06/09/2024 8:59 AM EDT SYPHILIS ANTIBODY SCREEN Lab Routine Normal in second trimester 06/09/2024 8:59 AM EDT ANEMIA CBC Lab Routine Normal in second trimester 06/09/2024 8:59 AM EDT DIFFERENTIAL, AUTOMATED Lab Routine Normal in second trimester 06/09/2024 8:59 AM EDT ANEMIA REFLEX CHEMISTRY HOLD Lab Routine Normal in second trimester 06/09/2024 8:59 AM EDT Health Maintenance Due Date Last [...] this encounter Visit Diagnoses Diagnosis Normal in second trimester Rh negative status during in second trimester documented in this encounter Care Teams Development Mechanic Relationship Specialty Start Date End Date Keaton Sotomayor MD [address] [place] [address] PCP - General 07/20/00 documented as of this encounter
--- OUTSIDE RECORDS SUMMARY | 2024-08-23 04:22 | External Medical Summary | Summary of Care ---
Author Name Unknown Organization [facility] Address [address] [place] [facility] [place] [address] Phone [phone] Care Team Providers Care Excavation Laborer Name Role Phone Keaton Sotomayor MD Primary Care Provider +1- [phone] Reason for Visit * Reason Comments Return Visit Encounter Details Date Type Department Care Team (Latest Contact Info) Description 04/19/2024 7:45 AM EDT Office Visit Gynecology/Obstetri sun [facility] [address] [place] [address] Eunice Shaw PA-C [address] [place] [address] , supervision, high-risk, first trimester*; Normal in second trimester; resulting from in vitro fertilization in second trimester; Rh negative status during in second trimester; Family history of hemochromatosis Allergies Active Allergy Reactions Criticality Noted Date Comments Amoxicillin Low 08/14/1999 hives Other reaction(s): ALLERGY Cephalosporins High 08/14/1999 hives Ceclor Suprax Other reaction(s): ANAPHYLAXIS Dust Itching 07/13/2010 Sulfa Antibiotics High 07/22/2011 Swelling Other reaction(s): ANAPHYLAXIS documented as of this encounter (statuses as of 04/19/2024) Medications Medication Sig Dispensed Refills Start Date End Date Status Pre- Formula Oral Tablet Take 1 Tablet by mouth in the morning. Active documented as of this encounter (statuses as of 04/19/2024) Active Problems Problem Noted Date Diagnosed Date , supervision, high-risk, first trimest er 02/26/2024 Normal 02/17/2024 resulting from in vitro fertilization 02/17/2024 Overview: IVF through [facility]. Embryo transfer 12/19/23 = JENNY 09/05/24. [...] Plan: Patient reports completing genetic counseling through [facility]. Declines additional genetic counseling. Recurrent sinus infections 04/07/2020 Anterior knee pain, left 07/08/2019 Patellar dislocation, left, initial encounter Patellofemoral pain syndrome of left knee 2018 Chronic rhinitis 09/03/2017 Anxiety 09/03/2017 Estimated Date of Delivery Comme nts Yes 09/05/2024 Based on Embryo Transfer documented as of this encounter (statuses as of 04/19/2024) Resolved Problems Problem Noted Date Diagnosed Date [...] as of this encounter (statuses as of 04/19/2024) Immunizations Name Administration Dates Next Due COVID-19 mRNA, LNP-s, No Pre serve, 2-Dose Series (Moderna) 08/22/2021,12/17/2020,11/12/2020 DTaP Dipth/Tet/Acell Pertussis (Infanrix), Peds 09/03/1996,02/13/1993,01/28/1992,12/06,1991 H1N1 2009 Influenza, Intranasal 10/09/2009 HIB PRP-T, 4 Dose, PF, IM (Hiberix) 01/19,01/28/1992,1991,10/11 HPV Vaccine, 4-Valent 07/08/2007,03/03/2007,12/18 Haemophilius B (HIB), [...] Inj 10/03/2017,07/29/2016,07/07/2013,11/09 TDAP (age 10 and older)(Boostrix) 12/20/2015,06/2005 documented as of this encounter Social History [...] money to get more. Never true 07/21/2023 [place] Depression Scale Answer Date Recorded [place] Depression Scale Total 8 02/17/2024 The thought [...] Sign Reading Time Taken Comments Blood Pressure 112/62 04/19/2024 7:51 AM EDT Pulse - - Temperature - - Respiratory Rate - - Oxygen Saturation - - Inhaled Oxygen Concentration - - Weight 79.5 kg (175 lb 3.2 oz) 04/19/2024 7:51 A M EDT Height 172.7 cm (5' 8") 04/19/2024 7:51 AM EDT Body Mass Index 26.64 04/19/2024 7:51 AM EDT documented in this encounter Progress Notes * Eunice Shaw PA-C - 04/19/2024 8:11 AM EDT 20w1d Anatomy complete with MFM on Friday. Baby measuring 1 week ahead. Had several questions about delivery plan. MFM recommending delivery by EDC. Reviewed IOL if needed. Has had a few LILLIAN episodes with sneezing. Certain its urine. Baby breech on ultrasound, no dysuria.Reviewed may occur d/t . Urine collected to screen for UTI. Denies LOF, VB, contractions. + quickening. RTC in 4 weeks Eunice Shaw PA-C documented in this encounter Nursing Notes * Moshe Palmer RN - 04/19/2024 7:52 AM EDT Patient here for EMILY 20w1d No concerns Moshe Palmer RN documented in this encounter Miscellaneous Notes * Addendum Note - Moshe Palmer RN - 04/19/2024 8:25 AM EDTAddended by: MOSHE PALMER on: 04/19/2024 08:25 AM Modules accepted: Orders documented in this encounter Plan of Treatment Upcoming Encounters Date Type Department Care Team (Late st Contact Info) Description 05/17/2024 7:45 AM EDT Office Visit Gynecology/Obstetrics [facility] [address] [facility] [place] [address] Eunice Shaw PA-C [address] [place] [address] 06/09/2024 8:45 AM EDT Office Visit Gynecology/Obstetrics [facility] [address] [facility] [place] [address] Bartolome Jones MD [address] [place] [address] 06/25/2024 1:45 PM EDT Office Visit Paver Layer Obstetrics Maternal Medicine, [place] [address] [place], [place] [phone] Charlie Gaming, [address] [place] [address] 06/25/2024 1:45 PM EDT [facility], [place] [address] [place], [place] [phone] Pending Results Name Type Priority Associated Diagnoses Date /Time CULTURE, URINE, QUANTITATIVE Lab Routine Normal in second trimester 04/19/2024 8:21 AM EDT Health Maintenance Due Date Last [...] Procedure Name Priority Date/Time Associated Diagnosis Comments URINALYSIS, POINT OF CARE (ENTER/EDIT) Routine 04/19/2024 Normal in second trimester , supervision, high-risk, first trimester documented in this encounter Results * URINALYSIS, POINT OF CARE (ENTER/EDIT) (04/19/2024) Color, Urine Yellow Yellow or Light Yellow Clarity, Urine Clear Clear Glucose, Urine Negative Negative mg/dL Bilirubin, Urine Negative Negative Ketone, Urine Negative Negative mg/dL Specific [place], Urine 1.030 1.003 - 1.030 Blood, Urine Small Negative pH, Urine 6.0 5.0 - 7.5 units Protein, Urine Negative Negative mg/dL Urobilinogen, Urine 0.2 0.2 - 1.0 mg/dL Nitrite, Urine Negative Negative Esterase, Urine Negative Negative Urine 04/19/2024 Eunice Shaw PA-C LAB POINT OF CARE TE ST ENTER/EDIT ORDERABLES documented in this encounter Visit Diagnoses Diagnosis , supervision, high-risk, first trimester- Primary Normal in second trimester resulting from in vitro fertilization in second trimester Rh negative status during in second trimester Family history of hemochromatosis Family history of other endocrine and metabolic diseases documented in this encounter Care Teams Excavation Laborer Relationship Specialty Start Date End Date Keaton Sotomayor MD [address] [place] [facility] [place] [address] PCP - General 07/20/00 documented as of this encounter
--- OUTSIDE RECORDS SUMMARY | 2024-08-23 04:22 | External Medical Summary ---
Author Name Unknown Address Unknown Organization [id number]:LAB[facility]ATORY [facility] [address] [place] [address] Laboratory Report Ordering Provider Test Date Status VERO ZARATE 06/09/2024 08:59:34 Final Observation Date Value Abnormality Reference (Units ) Status Glucose [Moles/volume] in Serum or Plasma --1 hour post 50 g glucose PO 06/09/2024 08:59:34 140 Above high normal 70-129 (mg/dL) Final Performing Location [facility]ORY [facility] [address] - [address] [place] [id number]
--- OUTSIDE RECORDS SUMMARY | 2024-08-23 04:22 | External Medical Summary | Summary of Care ---
Author Name Unknown Organization [facility] Address [address] [place] [address] Phone [phone] Care Team Providers Care Fuse Maker Name Role Phone Keaton Sotomayor MD Primary Care Provider +1- [phone] Reason for Visit * Reason Comments Return Visit Encounter Details Date Type Department Care Team (Latest Contact Info) Description 03/19/2024 2:15 PM EDT Office Visit Gynecology/Obstetric s Jeansoheila Cervantes [address] [place] [address] Gay Latif CRNP [address] [facility] [place] [address] Normal in second trimester*; resulting from in vitro fertilization in second trimester; Rh negative, antepartum; Family history of hemochromatosis; , supervision, high-risk, first trimester Allergies Active Allergy Reactions Criticality Noted Date Comments Amoxicillin Low 08/14/1999 hives Other reaction(s): ALLERGY Cephalosporins High 08/14/1999 hives Ceclor Suprax Other reaction(s): ANAPHYLAXIS Dust Itching 07/13/2010 Sulfa Antibiotics High 07/22/2011 Swelling Other reaction(s): ANAPHYLAXIS documented as of this encounter (statuses as of 03/19/2024) Medications Medication Sig Dispensed Refills Start Date End Date Status Pre- Formula Oral Tablet Take 1 Tablet by mouth in the morning. Active documented as of this encounter (statuses as of 03/19/2024) Active Problems Problem Noted Date Diagnosed Date , supervision, high-risk, first trimest er 02/26/2024 Normal 02/17/2024 resulting from in vitro fertilization 02/17/2024 Overview: IVF through [facility]. Embryo transfer 12/19/23 = JENNY 09/05/24. Completed pre-implantation genetic testing on embryos; sex male. Recommend ultrasound for growth at 28-32 weeks. Recommend weekly NSTs to begin at 36 weeks. Consider delivery at 39 weeks. Last Assessment & Plan: CONSIDERATIONS: Assisted reproductive technology (ART) includes in vitro fertilization (IVF), intrauterine insemination (IUI), Gamete intrafallopian transfer (GIFT) and Zygote intrafallopian transfer (ZIFT). 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 Discussed with patient that even for duvall ART pregnancies, the relative risk of complications such as growth restriction, preeclampsia, prematurity, placental abruption, and mortality are increased, although clearly not independent of infertility itself. Neurodevelopmental outcomes of children conceived by ART appear to be normal. Risk of congenital abnormalities is increased by about 1/3 over the population baseline risk of 2-4%. There is approximately 1% of cardiac defects associated with pregnancies resulting from IVF. This is likely due to the fertilization process. RECOMMENDATIONS: Recommend Maternal Medicine (MFM) level II anatomy scan at 19-20 weeks. Recommend echocardiography by MFM at 22-24 weeks gestation for patients who have had IVF. Recommend MFM growth evaluation if indicated by other existing or maternal conditions. Recommend ultrasound for growth at 28-32 weeks. Recommend weekly NSTs to begin at 36 weeks. Consider delivery at 39 weeks. Rh negative status during 02/17/2024 Family history of hemochromatosis 02/17/2024 Overview: FOB; embryo w/neg pre-implantation testing Last Assessment & Plan: Patient reports completing genetic counseling through [facility]. Declines additional genetic counseling. Recurrent sinus infections 04/07/2020 Anterior knee pain, left 07/08/2019 Patellar dislocation, left, initial encounter Patellofemoral pain syndrome of left knee 2018 Chronic rhinitis 09/03/2017 Anxiety 09/03/2017 Estimated Date of Delivery Comme nts Yes 09/05/2024 Based on Embryo Transfer documented as of this encounter (statuses as of 03/19/2024) Resolved Problems Problem Noted Date Diagnosed Date [...] as of this encounter (statuses as of 03/19/2024) Immunizations Name Administration Dates Next Due COVID-19 mRNA, LNP-s, No Pre serve, 2-Dose Series (Moderna) 08/22/2021,12/17/2020,11/12/2020 H1N1 2009 Influenza, Intranasal 10/09/2009 HPV Vaccine, 4-Valent 07/08/2007,03/03/2007,12/18 Haemophilius B (HIB), unspecified 1992,01/28/1992,1991,10/11 Hep A - Hepatitis A (ped/ado le, 1-18 Yrs) 02/08/2009,07/28/2008 Hepatitis A Vaccine 02/08/2009,07/28/2008 Meningococcal Conjugate Vacc ine (Menactra/Menveo) 03/03/2007 [...] has occurred to me . Never 02/17/2024 Estimated Date of Delivery Comme nts Yes 09/05/2024 Based on Embryo Transfer Sex and Gender Information Value Date Recorded Sex Assigned at Female 02/25/2019 7:36 AM EDT Gender Identity Female 02/25/2019 7:36 AM EDT Sexual Orientation Straight 02/25/2019 7 :36 AM EDT Job Start Date Occupation Industry Not on file Not on file Not on file documented as of this encounter Last Filed Vital Signs Vital Sign Reading Time Taken Comments Blood Pressure 102/62 03/19/2024 2:17 PM EDT Pulse - - Temperature - - Respiratory Rate - - Oxygen Saturation - - Inhaled Oxygen Concentration - - Weight 77.6 kg (171 lb) 03/19/2024 2:17 PM EDT Height - - Body Mass Index 26 02/17/2024 9:21 AM EDT documented in this encounter Progress Notes * Gay Latif CRNP - 03/19/2024 2:43 PM EDT 15w5d No concerns. Hasn't felt FM yet. Mild nausea. Following with MFM, anatomy u/s scheduled. MERY Shabazz * Queenie Steel MED ASSIST - 03/19/2024 2:17 PM EDT 15w5d Vaginal bleeding: no ROM: no movement: absent Contractions: no Nausea: no Vomiting: no Headaches: yes documented in this encounter Plan of Treatment Upcoming Encounters Date Type Department Care Team (Late st Contact Info) Description 04/16/2024 1:30 PM EDT Office Visit Plant Operations Worker Obstetrics Maternal Medicine, [place] [address] [place] [address] Charlie Gaming [address] [place] [address] 04/16/2024 1:30 PM EDT [facility] [address] [place] [address] Health Maintenance Due Date Last Done Comments [...] encounter Visit Diagnoses Diagnosis Normal in second trimester- Primary resulting from in vitro fertilization in second trimester Rh negative, antepartum Rhesus isoimmunization affecting management of mother, antepartum condition Family history of hemochromatosis Family history of other endocrine and metabolic diseases , supervision, high-risk, first trimester documented in this encounter Care Teams Fuse Maker Relationship Specialty Start Date End Date Keaton Sotomayor MD [address] [place] [address] PCP - General 07/20/00 documented as of this encounter
--- OUTSIDE RECORDS SUMMARY | 2024-08-23 04:22 | External Medical Summary ---
Author Name Unknown Address Unknown Organization K0G:[facility] [place] [address] - [address] [place] [address] Laboratory Report Ordering Provider Test Date Status VERO ZARATE 05/17/2024 08:45:30 Final Observation Date Value Abnormality Reference (Units) Status Color of Urine by Auto 05/17/2024 08:45:30 Yellow Light Yellow, Yellow, Dark Yellow Final Clarity, Urine 05/17/2024 08:45:30 Slightly Cloudy Abnormal Clear Final Glucose [Mass/volume] in Urine by Automated test strip 05/17/2024 08:45:30 Negative Negative (mg/dL) Final Bilirubin.total [Presence] in Urine by Automated test strip 05/17/2024 08:45:30 Negative Negative Final Ketones [Mass/volume] in Urine by Automated test strip 05/17/2024 08:45:30 Trace Abnormal Negative (mg/dL) Final Specific gravity, Urine 05/17/2024 08:45:30 1.025 1.003-1.030 Final Hemoglobin [Presence] in Urine by Automated test strip 05/17/2024 08:45:30 Trace Abnormal Negative Final pH, Urine 05/17/2024 08:45:30 8.5 Above high normal 5.0-7.5 (Units) Final Protein [Mass/volume] in Urine by Automated test strip 05/17/2024 08:45:30 30 Abnormal Negative (mg/dL) Final Urobilinogen [Mass/volume] in Urine by Automated test strip 05/17/2024 08:45:30 0.2 0.2, 1.0 (mg/dL) Final Nitrite [Presence] in Urine by Automated test strip 05/17/2024 08:45:30 Negative Negative Final Leukocyte esterase [Presence] in Urine by Automated test strip 05/17/2024 08:45:30 Negative Negative Final RBC, Urine 05/17/2024 08:45:30 3-5 Abnormal 0-2 (/HPF) Final WBC, Urine 05/17/2024 08:45:30 0-2 0-2 (/HPF) Final Bacteria [#/area] in Urine sediment by Microscopy high power field 05/17/2024 08:45:30 101-150 Abnormal 0-25 (/HPF) Final Epithelial cells.squamous [#/area] in Urine sediment by Microscopy high power field 05/17/2024 08:45:30 Many Abnormal None (/HPF) Final CULTURE, URINE - [facility] 05/17/2024 08:45:30 Final Quantitative urine culture t o be performed Performing Location LABORATORY [place] [address] [place] [address]
--- OUTSIDE RECORDS SUMMARY | 2024-08-23 04:22 | External Medical Summary | Summary of Care ---
Author Name Unknown Organization [facility] Address [address] [place] [address] Phone [phone] Care Team Providers Care Lead Ramp Agent Name Role Phone Keaton Sotomayor MD Primary Care Provider +1- [phone] Reason for Visit * Reason Onset Date Comments Referral 02/17/2024 Encounter Details Date Type Department Care Team (Late st Contact Info) Description 02/17/2024 Telephone Orthopaedic Surgeon Obstetrics Maternal Medicine, [place] [address] [place], [place] [id number] [place], Nurse Orthopaedic Surgeon [facility] [address] [place] [address] Referral Allergies Active Allergy Reactions Criticality Noted Date Comments Amoxicillin Low 08/14/1999 hives Other reaction(s): ALLERGY Cephalosporins High 08/14/1999 hives Ceclor Suprax Other reaction(s): ANAPHYLAXIS Dust Itching 07/13/2010 Sulfa Antibiotics High 07/22/2011 Swelling Other reaction(s): ANAPHYLAXIS documented as of this encounter (statuses as of 05/18/2024) Medications Medication Sig Dispensed Refills Start Date End Date Status Pre- Formula Oral Tablet Take 1 Tablet by mouth in the morning. Active documented as of this encounter (statuses as of 05/18/2024) Active Problems Problem Noted Date Diagnosed Date , supervision, high-risk, first trimest er 02/26/2024 Normal 02/17/2024 resulting from in vitro fertilization 02/17/2024 Overview: IVF through [email or web address]. Embryo transfer 12/19/23 = JENNY 09/05/24. Completed [...] Plan: Patient reports completing genetic counseling through [facility]. Declines additional genetic counseling. Recurrent sinus infections 04/07/2020 Anterior knee pain, left 07/08/2019 Patellar dislocation, left, initial encounter Patellofemoral pain syndrome of left knee 2018 Chronic rhinitis 09/03/2017 Anxiety 09/03/2017 Estimated Date of Delivery Comme nts Yes 09/05/2024 Based on Embryo Transfer documented as of this encounter (statuses as of 05/18/2024) Resolved Problems Problem Noted Date Diagnosed Date [...] as of this encounter (statuses as of 05/18/2024) Immunizations Name Administration Dates Next Due COVID-19 [...] money to get more. Never true 07/21/2023 [place] Depression Scale Answer Date Recorded [place] Depression Scale Total 8 02/17/2024 The thought [...] No 07/21/2023 Does the household have a [facility] hospit[facility] source of income? (Household - for ages [...] encounter Miscellaneous Notes * Telephone Encounter - Thania Keen OSA - 02/17/2024 3:59 PM EDT Spoke with Gricelda. Appointment scheduled. Patient aware of date, time and location of Maternal FetalMedicine appointment. * Telephone Encounter - Emmy Solano CCMA - 02/17/2024 3:32 PM EDT Estimated Date of Delivery: 09/03/24 Please schedule for 45 MINUTE CONSULT SIMPLE MEDICAL WITH DOUGH MIXING MACHINE OPERATOR, in time frame of next available or atpatient's earliest convenience at [facility] with the indication of IVF . Please schedule limited anatomy between [id number] weeks (02/18/24-03/05/24) Please schedule anatomy between 19-21 weeks (04/10/24-04/24/24). Referring Provider: Ely Theodore CRNP documented in this encounter Plan of Treatment Upcoming Encounters Date Type Department Care Team (Late st Contact Info) Description 06/09/2024 8:20 AM EDT Laboratory Laboratory, [facility] [address] [place] [address] [facility] [address] [place] [address] 06/09/2024 8:45 AM EDT Office Visit Gynecology/Obstetrics [facility] [address] [place] [address] Bartolome Jones MD [address] [facility] [place] [address] 06/25/2024 1:45 PM EDT Office Visit Orthopaedic Surgeon Obstetrics Maternal Medicine, [place] [address], [place] [phone] Charlie Gaming [address] [place] [address] 06/25/2024 1:45 PM EDT Imaging Radiology [facility] [address] [place], [place] [id number] Health Maintenance Due Date Last Done Comments [...] HPV (Gardasil) Vaccine Completed 7, 03/03/2007, 12/30/2006 HIV Screening Completed 02/17/2024, 05/29/2023 Hepatitis C Screening Completed 02/17/2024 , 02/17/2024, 02/17/2024, Additional history exists Pneumococcal Vaccine: Pediatrics (0 to 5 Years) and At-Risk Patients (6 to 64 Years) Aged Out No longer eligible based on patient's age to complete this topic documented as of this encounter Medical Devices Not on filedocumented as of this encounter Care Teams Lead Ramp Agent Relationship Specialty Start Date End Date Keaton Sotomayor MD [address] [place] [address] PCP - General 07/20/00 documented as of this encounter
--- OUTSIDE RECORDS SUMMARY | 2024-08-23 04:22 | External Medical Summary ---
Author Name Unknown Address Unknown Organization K01:LABORATORY [facility] - [address] [place] [id number] Laboratory Report Ordering Provider Test Date Status ELLIOTVERO 04/19/2024 08:21:13 Final Observation Date Value Abnormality Reference (Units) Status Bacteria identified in Specimen by Culture 04/19/2024 08:21:13 No significant growth Final Test: Culture, Urine, Quant itative
Specimen Source: Urine, Clean Catch
Specimen Type: Urine
Specimen Date: 04/19/2024820
Result Date: 04/20/202414
Result Status: Final result
Resulting Lab: LAB[facility]ATORY [facility]
[address]
[facility]

CULTURE

No significant growth

null Performing Location LABORATORY [facility] - [address] [facility] [id number]
--- OUTSIDE RECORDS SUMMARY | 2024-08-23 04:22 | External Medical Summary | Summary of Care ---
Author Name Unknown Organization [facility] Address [address] [place] [address] Phone [phone] Care Team Providers Care Caramel Maker Name Role Phone Keaton Sotomayor MD Primary Care Provider +1- [phone] Reason for Visit * Reason Comments Return Visit Encounter Details Date Type Department Care Team (Latest Contact Info) Description 04/19/2024 7:45 AM EDT Office Visit Gynecology/Obstetric s Wendy Cervantes [address] [place] [address] Eunice Shaw PA-C [address] [place] [address] Normal in second trimester*; resulting from in vitro fertilization in second trimester; Rh negative status during in second trimester; Family history of hemochromatosis; , supervision, [...] in vitro fertilization 02/17/2024 Overview: IVF through [facility]. Embryo transfer 12/19/23 = JENNY 09/05/24. [...] Plan: Patient reports completing genetic counseling through [facility]. Declines additional genetic counseling. Recurrent sinus infections [...] money to get more. Never true 07/21/2023 [place] Depression Scale Answer Date Recorded [place] Depression Scale Total 8 02/17/2024 The thought [...] 07/21/2023 Does the household have a [facility] source of income? (Household - for [...] documented in this encounter Nursing Notes * Camelia Dickerson RN - 04/19/2024 7:52 AM EDT Patient here for EMILY 20w1d No concerns Camelia Dickerson RN documented in this encounter Plan of Treatment Upcoming Encounters Date Type Department Care Team (Late st Contact Info) Description 05/17/2024 7:45 AM EDT Office Visit Gynecology/Obstetrics [facility] [address] [place] [address] Eunice Shaw PA-C [address] [place] [address] 06/09/2024 8:45 AM EDT Office Visit Gynecology/Obstetrics [facility] [address] [place] [address] Bartolome Jones MD [address] [place] [address] 06/25/2024 1:45 PM EDT Office Visit Household Appliance Assembler Obstetrics Maternal Medicine, [place] [address] [place] [address] Charlie Gaming DO [address] [place] [address] 06/25/2024 1:45 PM EDT Imaging Radiology [place] [address] [place] [address] Pending Results Name Type Priority Associated Diagnoses [...] trimester documented in this encounter Care Teams Caramel Maker Relationship Specialty Start Date End Date Keaton Sotomayor MD [address] [place] [address] PCP - General 07/20/00 documented as of this encounter
--- OUTSIDE RECORDS SUMMARY | 2024-08-23 04:22 | External Medical Summary | Summary of Care ---
Author Name Unknown Organization [facility] Address [address] [place] [address] Phone [phone] Care Team Providers Care Pastry Artist Name Role Phone Keaton Sotomayor MD Primary Care Provider +1- [phone] Reason for Visit * Reason Comments Return Visit Encounter Details Date Type Department Care Team (Latest Contact Info) Description 05/17/2024 7:45 AM EDT Office Visit Gynecology/Obstetric s Wendy Cervantes [address] [place] [address] Eunice Shaw PA-C [address] [place] [address] Normal in second trimester*; resulting from in [...] as of this encounter (statuses as of 05/17/2024) Medications Medication Sig Dispensed Refills Start Date End Date Status Pre- Formula Oral Tablet Take 1 Tablet by mouth in the morning. Active documented as of this encounter (statuses as of 05/17/2024) Active Problems Problem Noted Date Diagnosed Date , supervision, high-risk, first trimest er 02/26/2024 Normal 02/17/2024 resulting from in vitro fertilization 02/17/2024 Overview: IVF through [facility]. Embryo transfer 12/19/23 = JENNY 09/05/24. [...] Plan: Patient reports completing genetic counseling through [facility]. Declines additional genetic counseling. Recurrent sinus infections 04/07/2020 Anterior knee pain, left 07/08/2019 Patellar dislocation, left, initial encounter Patellofemoral pain syndrome of left knee 2018 Chronic rhinitis 09/03/2017 Anxiety 09/03/2017 Estimated Date of Delivery Comme nts Yes 09/05/2024 Based on Embryo Transfer documented as of this encounter (statuses as of 05/17/2024) Resolved Problems Problem Noted Date Diagnosed Date [...] as of this encounter (statuses as of 05/17/2024) Immunizations Name Administration Dates Next Due COVID-19 [...] money to get more. Never true 07/21/2023 [place] Depression Scale Answer Date Recorded [place] Depression Scale Total 8 02/17/2024 The thought [...] Sign Reading Time Taken Comments Blood Pressure 108/62 05/17/2024 7:45 AM EDT Pulse - - Temperature - - Respiratory Rate - - Oxygen Saturation - - Inhaled Oxygen Concentration - - Weight 81.6 kg (180 lb) 05/17/2024 7:45 AM EDT Height 172.7 cm (5' 8") 05/17/2024 7:45 AM EDT Body Mass Index 27.37 05/17/2024 7:45 AM EDT documented in this encounter Progress Notes * Eunice Shaw PA-C - 05/17/2024 8:17 AM EDT 24w1d Reviewed third tri labs and RhoGAM next visit. Following with MFM, next appointment 06/25/2024. Some intermittent R sided pain, possibly related to baby's movements. Had trace-lysed blood in UA last visit, repeat UA with reflex culture collected. NO dysuria. Denies VB, LOF, contractions. Baby is active. RTC in 4 weeks Eunice Shaw PA-C * Jessica Rojas LPN - 05/17/2024 7:45 AM EDT 24w1d Right side abd pain Sees mfm wants her to deliver at 38/39 weeks documented in this encounter Plan of Treatment Upcoming Encounters Date Type Department Care Team (Late st Contact Info) Description 06/09/2024 8:20 AM EDT [facility] [address] [facility] [place] [phone] Jag Cervantes [address] [facility] [place] [address] 06/09/2024 8:45 AM EDT Office Visit Gynecology/Obstetrics Wendy Cervantes [address] [place] [address] Bartolome Jones MD [address] [place] [address] 06/25/2024 1:45 PM EDT Office Visit Pharmacy Care Coordinator Obstetrics Maternal Medicine, [place] [address] [place] [address] Charlie Gaming, [address] [place] [address] 06/25/2024 1:45 PM EDT Imaging Radiology [facility], [place] [address], [place] [phone] Pending Results Name Type Priority Associated Diagnoses Date /Time URINALYSIS, REFLEX TO CULTURE (NOT FOR NEUTROPENIC PATIENTS) Lab Routine Normal in second trimester 05/17/2024 8:45 AM EDT URINALYSIS, REFLEX TO CULTURE (CUP ONLY) Lab Routine Normal in second trimester 05/17/2024 8:45 AM EDT URINALYSIS, REFLEX TO CULTURE Lab Routine Normal in second trimester 05/17/2024 8:45 AM EDT Scheduled Orders Name Type Priority Associated Diagnoses Orde r Schedule 50-G GESTATIONAL GLUCOSE, 1 HOUR Lab Routine Normal in second trimester Expected: 05/31/2024 (Approximate), Expires: 05/17/2025 SYPHILIS ANTIBODY SCREEN WITH REFLEX TO RPR Lab Routine Normal in second trimester Expected: 05/31/2024 (Approximate), Expires: 05/17/2025 CBC WITH WBC DIFFERENTIAL AND ANEMIA REFLEX WORKUP Lab Routine Normal in second trimester Expected: 05/31/2024 (Approximate), Expires: 05/17/2025 TYPE AND SCREEN Lab Routine Rh negative status during in second trimester Expected: 05/31/2024 (Approximate), Expires: 06/17/2025 URINALYSIS, REFLEX TO CULTURE (NOT FOR NEUTROPENIC PATIENTS) Lab Routine Normal in second trimester Expected: 05/17/2024, Expires: 05/17/2025 Health Maintenance Due Date Last Done Comments [...] trimester documented in this encounter Care Teams Pastry Artist Relationship Specialty Start Date End Date Kaeton Sotomayor MD [address] [place] [address] PCP - General 07/20/00 documented as of this encounter
--- OUTSIDE RECORDS SUMMARY | 2024-08-23 04:22 | External Medical Summary | Summary of Care ---
Author Name Unknown Organization [facility] Address [address] [place] [facility] [place] [place] [address] Phone [phone] Care Team Providers Care Veterans Services Specialist Name Role Phone Keaton Sotomayor MD Primary Care Provider +1- [phone] Reason for Visit * Reason Comments Return Visit Encounter Details Date Type Department Care Team (Latest Contact Info) Description 04/19/2024 7:45 AM EDT Office Visit Gynecology/Obstetri sun Cervantes [address] [place] [address] Eunice Shaw PA-C [address] [place] [address] , supervision, high-risk, first trimester*; Normal in [...] in vitro fertilization 02/17/2024 Overview: IVF through [facility]. Embryo transfer 12/19/23 = JENNY 09/05/24. [...] Plan: Patient reports completing genetic counseling through [facility]. Declines additional genetic counseling. Recurrent sinus infections [...] money to get more. Never true 07/21/2023 [place] Depression Scale Answer Date Recorded [place] Depression Scale Total 8 02/17/2024 The thought [...] 05/17/2024 7:45 AM EDT Office Visit Gynecology/Obstetrics [facility] [address] [facility] [place] [address] Eunice Shaw PA-C [address] [place] [address] 06/09/2024 8:45 AM EDT Office Visit Gynecology/Obstetrics [facility] [address] [facility] [place] [address] Bartolome Jones MD [address] [place] [address] 06/25/2024 1:45 PM EDT Office Visit Staff Climate Scientist Obstetrics Maternal Medicine, [place] [address] [place], [place] [phone] Charlie Gaming, [address] [place] [address] 06/25/2024 1:45 PM EDT [facility], [place] [address] [place], [place] [phone] Pending Results Name Type Priority Associated Diagnoses [...] Negative Ketone, Urine Negative Negative mg/dL Specific Gallagher, Urine 1.030 1.003 - 1.030 Blood, Urine [...] diseases documented in this encounter Care Teams Veterans Services Specialist Relationship Specialty Start Date End Date Keaton Sotomayor MD [address] [facility] [place] [address] PCP - General 07/20/00 documented as of this encounter
--- OUTSIDE RECORDS SUMMARY | 2024-08-23 04:22 | External Medical Summary ---
Author Name Unknown Address Unknown Organization [id number]:LABORATORY [facility] - [address] [place] [address] Laboratory Report Ordering Provider Test Date Status VERO ZARATE 06/09/2024 08:59:34 Final Observation Date Value Abnormality Reference (Units ) Status ABO 06/09/2024 08:59:34 O Final RH 06/09/2024 08:59:34 Negative Final RED BLOOD CELL ANTIBODY SCREEN 06/09/2024 08:59:34 Negative Final SPECIMEN EXPIRATION DATE 06/09/2024 08:59:34 06/12/2024 23:59 Final Performing Location [facility] - [address] [place] [address]
--- OUTSIDE RECORDS SUMMARY | 2024-08-23 04:22 | External Medical Summary | Summary of Care ---
Author Name Unknown Organization [facility] Address [address] [place] [address] Phone [phone] Care Team Providers Care Wrestling Coach Name Role Phone Keaton Sotomayor MD Primary Care Provider +1- [phone] Reason for Visit * Reason Comments Return Visit Encounter Details Date Type Department Care Team (Latest Contact Info) Description 05/17/2024 7:45 AM EDT Office Visit Gynecology/Obstetric s Wendy Cervantes [address] [place] [address] Eunice Shaw PA-C [address] [place] [address] Normal in second trimester*; resulting from in [...] in vitro fertilization 02/17/2024 Overview: IVF through [facility]. Embryo transfer 12/19/23 = JENNY 09/05/24. [...] Plan: Patient reports completing genetic counseling through [employer]. Declines additional genetic counseling. Recurrent sinus [...] money to get more. Never true 07/21/2023 [place] Depression Scale Answer Date Recorded [place] Depression Scale Total 8 02/17/2024 The thought [...] 06/09/2024 8:20 AM EDT [facility] [address] [facility] [place] [phone] Jag Cervantes [address] [facility] [place] [address] 06/09/2024 8:45 AM EDT Office Visit Gynecology/Obstetrics Wendy Cervantes [address] [place] [address] Bartolome Jones MD [address] [place] [address] 06/25/2024 1:45 PM EDT Office Visit Fruit Harvest Worker Obstetrics Maternal Medicine, [place] [address] [place] [address] Charlie Gaming, [address] [place] [address] 06/25/2024 1:45 PM EDT Imaging Radiology [facility], [place] [address] [place], [place] [phone] Pending Results Name Type Priority Associated Diagnoses [...] trimester documented in this encounter Care Teams Wrestling Coach Relationship Specialty Start Date End Date Keaton Sotomayor MD [address] [place] [address] PCP - General 07/20/00 documented as of this encounter
--- OUTSIDE RECORDS SUMMARY | 2024-08-23 04:22 | External Medical Summary ---
Author Name Unknown Address Unknown Organization [id number]:[facility] [place] [address] [facility] [address] Laboratory Report Ordering Provider Test Date Status VERO ZARATE 06/09/2024 08:59:34 Final Observation Date Value Abnormality Reference (Units ) Status SYNC LEUKOCYTES IN BLOOD BY AUTOMATED COUNT 06/09/2024 08:59:34 9.39 4.00-10.80 (K/uL) Final Segs 06/09/2024 08:59:34 82.0 Above high normal 40.0-75.0 (%) Final Lymphs % 06/09/2024 08:59:34 11.2 Below low normal 18.0-42.0 (%) Final Monos 06/09/2024 08:59:34 4.8 1.0-11.0 (%) Final Eosinophils 06/09/2024 08:59:34 1.5 0.0-6.0 (%) Final Basos 06/09/2024 08:59:34 0.2 0.0-2.0 (%) Final Immature Granulocyte, Percent 06/09/2024 08:59:34 0.3 0.0-2.0 (%) Final Absolute Segs 06/09/2024 08:59:34 7.70 1.80-7.70 (K/uL) Final Lymphs, absolute 06/09/2024 08:59:34 1.05 1.00-4.80 (K/ul) Final Monos, Abs 06/09/2024 08:59:34 0.45 0.00-1.10 (K/uL) Final Eos, Abs 06/09/2024 08:59:34 0.14 0.00-0.70 (K/uL) Final Basos, Abs 06/09/2024 08:59:34 0.02 0.00-0.20 (K/uL) Final Immature Granulocytes, Number 06/09/2024 08:59:34 0.03 0.00-0.20 (K/uL) Final Performing Location [facility] [address] [facility] [address]
--- OUTSIDE RECORDS SUMMARY | 2024-08-23 04:22 | External Medical Summary | Summary of Care ---
Author Name Unknown Organization [facility] Address [address] [place] [address] Phone [phone] Care Team Providers Care Sales Hunter Name Role Phone Keaton Sotomayor MD Primary Care Provider +1- [phone] Reason for Visit * Reason Comments Ultrasound * Evaluate & Treat - Unlimited Visits (Within 10 days (routine)) - Authorized Specialty Diagnoses / Procedures Referred By Speedy santana Referred To Contact Obstetrics/Gynecology / Maternal Medicine Diagnoses Normal in first trimester resulting from in vitro fertilization in first trimester Ely Theodore CRNP [address] [place] [address] Referral ID Status Reason Start Date Expiration Date Visits Requested Visits Authorized [id number] Authorized Specialty Services Required 02/17/2024 02/16/[phone] Encounter Details Date Type Department Care Team (Latest Contact Info) Description 03/02/2024 11:30 AM EDT Office Visit Devil Dog Obstetrics Maternal Medicine, [place] [address], [place] [phone] Savanna Pool DO [address] [place] [address] resulting from in vitro fertilization in first trimester*; 13 weeks gestation of Allergies Active Allergy Reactions Criticality Noted Date Comments Amoxicillin Low 08/14/1999 hives Other reaction(s): ALLERGY Cephalosporins High 08/14/1999 hives Ceclor Suprax Other reaction(s): ANAPHYLAXIS Dust Itching 07/13/2010 Sulfa Antibiotics High 07/22/2011 Swelling Other reaction(s): ANAPHYLAXIS documented as of this encounter (statuses as of 03/02/2024) Medications Medication Sig Dispensed Refills Start Date End Date Status Pre-Ivan Formula Oral Tablet Take 1 Tablet by mouth in the morning. 0 Active documented as of this encounter (statuses as of 03/02/2024) Active Problems Problem Noted Date Diagnosed Date , supervision, high-risk, first trimest er 02/26/2024 Normal 02/17/2024 resulting from in vitro fertilization 02/17/2024 Overview: IVF through [facility]. Embryo transfer 12/19/23 = JENNY 09/05/24. Completed [...] as of this encounter (statuses as of 03/02/2024) Resolved Problems Problem Noted Date Diagnosed Date [...] as of this encounter (statuses as of 03/02/2024) Immunizations Name Administration Dates Next Due COVID-19 [...] money to get more. Never true 07/21/2023 [place] Depression Scale Answer Date Recorded [place] Depression Scale Total 8 02/17/2024 The thought [...] Progress Notes * Savanna Pool DO - 03/02/2024 11:47 AM EDT Gricelda presented today at 13w2d for an ultrasound for the following indications: resulting from in vitro fertilization in first trimester 13 weeks gestation of Ultrasound summary: Single live IUP at 13w 2d consistent with dates. No evidence of cystic hygroma or early abnormalities. I reviewed the ultrasound images. Gricelda was given the opportunity to meet with me if she had any questions. Please refer to the ultrasound report for additional details about today's ultrasound examination. RECOMMENDATIONS: Recommend follow up ultrasound with MFM in 6 weeks for anatomy survey secondary to above indications. See prior formal MFM consultation note. Thank you for allowing us to participate in the care of this patient. Please call with any questions. Savanna Pool DO 03/02/2024 11:47 AM documented in this encounter Plan of Treatment Upcoming Encounters Date Type Department Care Team (Late st Contact Info) Description 03/19/2024 2:15 PM EDT Office Visit Gynecology/Obstetrics [address] [place] [address] Gay Latif CRNP [address] [place] [address] 04/16/2024 1:30 PM EDT Office Visit [facility] Obstetrics Maternal Medicine, [place] [address] [place] [address] [place] [facility] [address] [place] [address] 04/16/2024 1:30 PM EDT Imaging Radiology [facility], [place] [address] [place] [address] Scheduled Orders Name Type Priority Associated Diagnoses Orde r Schedule MFM US MATERNAL 1ST FETUS Medical Imaging Routine resulting from in vitro fertilization in first trimester 13 weeks gestation of Expected: 03/02/2024, Expires: 04/02/2025 Health Maintenance Due Date Last Done Comments [...] Diagnosis resulting from in vitro fertilization in first trimester- Primary 13 weeks gestation of state, incidental documented in this encounter Care Teams Sales Hunter Relationship Specialty Start Date End Date Keaton Sotomayor MD [address] [place] [address] PCP - General 07/20/00 documented as of this encounter
--- OUTSIDE RECORDS SUMMARY | 2024-08-23 04:22 | External Medical Summary ---
Author Name Unknown Address Unknown Organization K01:LABOR[facility]ORY [facility] - [address] [place] [facility] Laboratory Report Ordering Provider Test Date Status ELLIOTVERO 05/17/2024 08:45:30 Final Observation Date Value Abnormality Reference (Units) Status Bacteria identified in Specimen by Culture 05/17/2024 08:45:30 No significant growth Final Test: Culture, Urine, Quant itative
Specimen Source: Urine, Clean Catch
Specimen Type: Urine
Specimen Date: 05/17/2024 0845
Result Date: 05/18/2024 1044
Result Status: Final result
Resulting Lab: [facility]
[address]
[place] [address]

CULTURE

No significant growth

null Performing Location LABORATORY [facility] - [address] [place] [address]
--- OUTSIDE RECORDS SUMMARY | 2024-08-23 04:22 | External Medical Summary | Summary of Care ---
Author Name Unknown Organization [facility] Address [address] [facility] [place] [address] Phone [phone] Care Team Providers Care Delicate Fabrics Presser Name Role Phone Keaton Sotomayor MD Primary Care Provider +1- [phone] Encounter Details Date Type Department Care Team (Late st Contact Info) Description 06/09/2024 Telephone Gynecology/Obstetrics [facility] [address] [place] [address] Eunice Shaw PA-C [address] [place] [address] Allergies Active Allergy Reactions Criticality Noted Date [...] in vitro fertilization 02/17/2024 Overview: IVF through [facility]. Embryo transfer 12/19/23 = JENNY 09/05/24. [...] Plan: Patient reports completing genetic counseling through [facility]. Declines additional genetic counseling. Recurrent sinus infections [...] money to get more. Never true 07/21/2023 [place] Depression Scale Answer Date Recorded [place] Depression Scale Total 8 02/17/2024 The thought [...] Telephone Encounter - Camelia Dickerson RN - 06/09/2024 10:31 AM EDT Patient called and made aware. Patient verbalized understanding. Agreeable to scheduling 3 hr. Would like to come in early tomorrow AM at 7. Added to schedule. * Telephone Encounter - Eunice Shaw PA-C - 06/09/2024 10:05 AM EDT Failed 1 hour gtt, needs 3 hour gtt Please make aware and give instructions. Will need to fast ahead of this testing. Remainder of labs still in process. documented in this encounter Plan of Treatment Upcoming Encounters Date Type Department Care Team (Late st Contact Info) Description 06/10/2024 7:00 AM EDT Laboratory Laboratory, [facility] [place] [address] [facility] [address] [facility] [place] [address] 06/25/2024 1:45 PM EDT Office Visit Weatherization Installer Obstetrics Maternal Medicine, [place] [address] [place] [address] [facility] [address] [place] [address] 06/25/2024 1:45 PM EDT [facility] [place] [address] [place] [address] 06/28/2024 8:45 AM EDT Office Visit Gynecology/Obstetrics [facility] [address] [facility] [place] [address] JoceerEly CRNP [address] [facility] [place] [address] Scheduled Orders Name Type Priority Associated Diagnoses Orde r Schedule GESTATIONAL GLUCOSE TOLERANCE, 3 HOUR Lab Routine Abnormal glucose tolerance in mother complicating Expected: 06/09/2024, Expires: 06/09/2025 Health Maintenance Due Date Last Done Comments [...] as of this encounter Visit Diagnoses Diagnosis Abnormal glucose tolerance in mother complicating - Primary Abnormal maternal glucose tolerance, complicating , childbirth, or the puerperium, unspecified as to episode of care documented in this encounter Care Teams Delicate Fabrics Presser Relationship Specialty Start Date End Date Keaton Sotomayor MD [address] [place] [address] PCP - General 07/20/00 documented as of this encounter
--- OUTSIDE RECORDS SUMMARY | 2024-08-23 04:23 | External Medical Summary | Summary of Care ---
Author Name Unknown Organization [facility] Address [address] [place] [address] Phone [phone] Care Team Providers Care Toy Consultant Name Role Phone Keaton Sotomayor MD Primary Care Provider [phone] Reason for Visit * Reason Comments Consultation Supervision of High Risk * Evaluate & Treat - Unlimited Visits (Within 10 days (routine)) - Authorized Specialty Diagnoses / Procedures Referred By Speedy santana Referred To Contact Obstetrics/Gynecology / Maternal Medicine Diagnoses Normal in first trimester resulting from in vitro fertilization in first trimester Ely Theodore CRNP [address] [place] [address] Referral ID Status Reason Start Date Expiration Date Visits Requested Visits Authorized [id number] Authorized Specialty Services Required 02/17/2024 02/16/2025 [id number] Encounter Details Date Type Department Care Team (Latest Contact Info) Description 02/26/2024 2:00 PM EDT Telemedicine [facility] [address] [place] [address] Farrah Fofana CRNP [address] [place] [address] resulting from in vitro fertilization in first trimester*; Family history of hemochromatosis; , supervision, high-risk, first trimester Allergies Active Allergy Reactions Criticality Noted Date Comments Amoxicillin Low 08/14/1999 hives Other reaction(s): ALLERGY Cephalosporins High 08/14/1999 hives Ceclor Suprax Other reaction(s): ANAPHYLAXIS Dust Itching 07/13/2010 Sulfa Antibiotics High 07/22/2011 Swelling Other reaction(s): ANAPHYLAXIS documented as of this encounter (statuses as of 02/26/2024) Medications Medication Sig Dispensed Refills Start Date End Date Status Pre-Ivan Formula Oral Tablet Take 1 Tablet by mouth in the morning. 0 Active documented as of this encounter (statuses as of 02/26/2024) Active Problems Problem Noted Date Diagnosed Date , supervision, high-risk, first trimest er 02/26/2024 Normal 02/17/2024 resulting from in vitro fertilization 02/17/2024 Overview: IVF through [facility]. Embryo transfer 12/19/23 = JENNY 09/05/24. Completed [...] as of this encounter (statuses as of 02/26/2024) Resolved Problems Problem Noted Date Diagnosed Date [...] rhinitis 02/15/2003 09/03/2017 INJURY, RIGHT FOOT 02/11/2001 11/15/201 7 Varicella without complication 09/03/2017 Overview: resolved, as baby documented as of this encounter (statuses as of 02/26/2024) Immunizations Name Administration Dates Next Due COVID-19 [...] as of this encounter Progress Notes * Farrah Fofana CRNP - 02/26/2024 2:26 PM EDT MATERNAL MEDICINE CONSULT Gricelda Lima 02/26/24 REFERRING PROVIDER: MERY Carranza Patient location: HOME. I was in a hospital or clinic location. After connecting through [employer],patient was verified with two unique identifiers. Patient (or authorized legal product support sales representative) was then informed that this was a Telemedicine visit and being conducted confidentially over secure lines. Methods to assure confidentiality were taken. Patient acknowledged consent and understanding of pr ivacy and security of the Telemedicine visit. The patient agreed to participate. Gricelda Lima is a 33 year old with intrauterine at 12w4d (Estimated Date of Delivery: 09/05/24 by embryo transfer on 12/18 ) who presents today for an MFM consult due to in vitro fertilization (IVF) and FOB with hemochromatosis. HPI/CURRENT : pre- BMI=normal (70.8 kg (156 lb); 5' 8"); FOB #1; complicated by above. Genetic testing: PGT-A (Preimplantation Genetic Testing for Aneuploidy) completed OB [facility] (from 02/12/24 to present) Problem Noted Resolved , supervision, high-risk, first trimester resulting from in vitro fertilization Overview Addendum 02/26/2024 2:25 PM by Farrah Fofana CRNP [facility]. Embryo transfer 12/19/23 = JENNY 09/05/24. Completed pre-implantation genetic testing on embryos; sex male. Family history of hemochromatosis Overview Signed 02/17/2024 10:00 AM by Ely Theodore CRNP FOB; embryo w/neg pre-implantation testing I have reviewed this patient's previous OB ultrasound reports, pertinent labwork and testing provided by her referring OB provider. Current Outpatient Medications Medication Sig Dispense Refill Pre- Formula Oral Tablet Take 1 Tablet by mouth in the morning. No current facility-administered medications for this visit. Review of patient's allergies indicates: Allergen Reactions Cephalosporins hives Ceclor Suprax Other reaction(s): ANAPHYLAXIS Sulfa Antibiotics Swelling Other reaction(s): ANAPHYLAXIS Dust Itching Amoxicillin hives Other reaction(s): ALLERGY OB History Para Term AB Living 2 0 0 0 1 0 SAB IAB Ectopic Multiple Live Births 0 0 1 0 0 # Outcome Date GA Lbr Adair/2nd Weight Sex Delivery Anes PTL Lv 2 Current 1 Ectopic 11/2021 ECTOPIC PREG Obstetric Comments 2023: FOB #1 Edwin Clarence 41 YO. Has hemochromatosis. No children from outside of this relationship. Ectopic 2021 - Methotrexate, required two doses. Past Medical History: Diagnosis Date Allergic rhinitis immunotherapy, Dr. Bhardwaj Anxiety 09/03/2017 Patellofemoral pain syndrome of left knee 07/08/2019 Varicella without complication Past Surgical History: Procedure Laterality Date CHG HYSTEROSALPINGOGRAPHY RS&I CREATE EARDRUM OPENING,LOCAL ANESTH 1991 Tympanostomy DENTAL SURGERY PROCEDURE NEC [place] teeth HC ARTIFICL INSEMNTN INTRAUTERINE TX EMBRYO TRANSFER INTRAUTERINE Family History Problem Relation Age of Onset No Known Problems Mother Allergies Father seasonal rhinitis No Known Problems Sister Hypertension Grandfather (Maternal) Stomach cancer Grandmother (Paternal) Thyroid Disorder Grandfather (Paternal) thyroid cancer Diabetes Grandfather (Paternal) Heart disease Grandfather (Paternal) Social History Tobacco Use Smoking status: Never Smokeless tobacco: Never Tobacco comments: no passive smoke Vaping Use Vaping Use: Never used Substance Use Topics Alcohol use: Not Currently Comment: occasionally Drug use: No REVIEW OF SYSTEMS: headaches: yes, resolved nausea/vomiting: reports occas n/v reports movement: n/a abdominal pain/tenderness/cramping/contractions: +mild stretching/tightness vaginal bleeding: no vaginal leaking of fluid: no all other systems negative PHYSICAL EXAM: LMP (LMP Unknown) General: Well appearing Psych: Alert to time, place, and person and Pleasant DISCUSSION/RECOMMENDATIONS: Problem List Items Addressed This Visit OB Jeremias Cervantes resulting from in vitro fertilization - Primary CONSIDERATIONS: Assisted reproductive technology (ART) includes in vitro fertilization (IVF), intrauterine insemination (IUI), Gamete intrafallopian transfer (GIFT) and Zygote intrafallopian transfer (ZIFT). Discussed with patient that pregnancies after ART are associated with increased risk for spontaneous , ectopic (higher with ZIFT for history of tubal factor infertility), multiple gestationpreterm and low weight. Discussed with patient that even for duvall ART pregnancies, the relative risk of complications such as growth restriction, preeclampsia, prematurity, placental abruption, and mortality are increased, although clearly not independent of infertility itself. Neurodevelopmental outcomes of children conceived by ART appear to be normal. Risk of congenital abnormalities isincreased by about 1/3 over the population baseline [...] 36 weeks. Consider delivery at 39 weeks. Family history of hemochromatosis Patient reports completing genetic counseling through [facility]. Declines additional genetic counseling. , supervision, high-risk, first trimester Follow up ultrasound with Maternal Medicine is scheduled on 03/[address] Pool for limited anatomy scan secondary to IVF . Anatomy ultrasound scheduled for 04/16. Patient is aware of upcoming MFM appointments. MERY Reaves 02/26/2024 2:28 PM documented in this encounter Miscellaneous Notes * Assessment & Plan Note - Farrah Fofana CRNP - 02/26/2024 2:26 PM EDT Associated Problem(s): Family history of hemochromatosis Patient reports completing genetic counseling through [facility]. Declines additional genetic counseling. * Assessment & Plan Note - Farrah Fofana CRNP - 02/26/2024 2:24 PM EDT Associated Problem(s): resulting from in vitro fertilization CONSIDERATIONS: Assisted reproductive technology (ART) includes in vitro fertilization (IVF), intrauterine insemination (IUI), Gamete intrafallopian transfer (GIFT) and Zygote intrafallopian transfer (ZIFT). Discussed with patient that pregnancies after ART are associated with increased risk for spontaneous , ectopic (higher with ZIFT for history of tubal factor infertility), multiple gestationpreterm and low weight. Discussed with patient that even for duvall ART pregnancies, the relative risk of complications such as growth restriction, preeclampsia, prematurity, placental abruption, and mortality are increased, although clearly not independent of infertility itself. Neurodevelopmental outcomes of children conceived by ART appear to be normal. Risk of congenital abnormalities isincreased by about 1/3 over the population baseline [...] 36 weeks. Consider delivery at 39 weeks. documented in this encounter Plan of Treatment Upcoming Encounters Date Type Department Care Team (Shahrzad Contact Info) Description 03/02/2024 11:30 AM EDT Office Visit [facility], [place] [address] [place] [address] Savanna Pool, [address] [place] [address] 03/02/2024 11:30 AM EDT Imaging Radiology [place] [address] [place] [address] 03/19/2024 2:15 PM EDT Office Visit Gynecology/Obstetrics [facility] [address] [place] [address] Gay Latif CRNP [address] [place] [address] 04/16/2024 1:30 PM EDT Office Visit [facility], [place] [address] [place] [address] Charlie Gaming, [address] [place] [address] 04/16/2024 1:30 PM EDT Imaging Radiology [address] [id number] Scheduled Referrals Name Type Priority Associated Diagnoses Orde r Schedule MATERNAL MEDICINE REFERRAL OP Referral Within 10 days (routine) Normal in first trimester resulting from in vitro fertilization in first trimester Ordered: 02/17/2024 Health Maintenance Due Date Last Done Comments Pap Smear 02/12/2021 02/12/2018, 09/19, 09/05/2015, Additional history exists Cervical Cancer Screening 2021 HPV/Co-Test 2021 COVID-19 Vaccine ( season) 2023 08/22/2021, 12/17/2020, 11/12/2020 Influenza Vaccine (FLU shot) (Season Ended) 2024 08/20/2021, 07/20/2020, 09/21/2019, Additional history exists Depression Screening 07/21/2024 07/21/2023 DTaP,Tdap,and Td Vaccines (8 - Td or Tdap) 12/19/2025 12/20/2015, 08/28/2005, 09/03/1996, Additional history exists Hepatitis B Completed 05/14/1995, 12/19, 11/12/1994 MENINGOCOCCAL [...] in vitro fertilization in first trimester- Primary Family history of hemochromatosis Family history of other endocrine and metabolic diseases , supervision, high-risk, first trimester documented in this encounter Care Teams Toy Consultant Relationship Specialty Start Date End Date Keaton Sotomayor MD [address] [place] [address] PCP - General 07/20/00 documented as of this encounter
[2024-08-23] MEDS ORDERED: CALCIUM CARBONATE 500 MG CHEWABLE TAB PO PRN (04:55)
[2024-08-23] MEDS ORDERED: LIDOCAINE 1% LOCAL 20 ML VIAL INFIL PRN (04:55)
[2024-08-23] MEDS ORDERED: ACETAMINOPHEN 325 MG TAB PO PRN ×2 (04:55→07:18)
[2024-08-23] MEDS ORDERED: BUTORPHANOL TARTRATE 2 MG/ML VIAL IV PRN (04:58)
[2024-08-23 05:30] LABS: Hematocrit (blood only) 39.4 % (37.0-47.0); Hemoglobin 13.4 g/dl (12.0-16.0); Mean Corpuscular Hemoglobin 31.3 pg (25.0-34.0); Mean Corpuscular Volume 92.1 fL (80.0-100.0); Mean Platelet Volume 9.5 fL (9.4-12.4); Platelet Count 286 K/uL (130-400); RDW Coefficient of Variation 13.1 % (11.5-14.5); RDW Standard Deviation 43.4 fL (36.4-46.3); Red Blood Count 4.28 M/uL (4.20-5.40); White Blood Count 13.38 K/ul (4.8-10.8)
[2024-08-23] MEDS: SODIUM CHLORIDE 0.9% PF INJ 10 ML VIAL ONE (06:14)
[2024-08-23] MEDS: LIDOCAINE 2%/EPINEPHRINE 1:200,000 20 ML PF ONE (06:14)
[2024-08-23] MEDS: BUPIVACAINE 0.25% PF 30 ML VIAL ONE (06:14)
[2024-08-23] MEDS: fentaNYL citrate PF 100 MCG/2 ML VIAL ONE (06:14)
[2024-08-23] MEDS: fentANYL 2 MCG/ML BUPIVacaine 0.125%-NSS 100ML BAG ONE (06:14)
[2024-08-23] MEDS: ePHEDrine sulfate 50 MG/ML AMP ONE (06:14)
[2024-08-23] MEDS: OXYTOCIN 30 UNITS/NSS 30 UNITS/500 ML BAG IV PRN (06:17)
--- NOTE | 2024-08-23 06:38 | Delivery Summary ---
Vaginal Delivery Summary Date of Service August 23, 2024 Vaginal Delivery Summary [facility] Patient receives her care with the [facility] CAMPAIGN MANAGEMENT SENIOR MANAGER group. However she presented in precipitous labor room and was called in for delivery. At time of presentation she was fully dilated +3 station. Patient pushed over intact perineum without anesthesia and delivered a viable with weight and Apgars pending. Head body and shoulders all delivered quickly and without issue. Patient was placed on maternal abdomen and 1 minute delayed cord clamping was initiated. Cord is then double clamped and cut remained on maternal abdomen. Cord blood was obtained. Attention was turned to deliver the placenta which delivered intact three-vessel cord gentle cord traction. Inspection of the perineum vagina cervix there is noted to be a small superficial vaginal laceration which was not bleeding and opted not for repair. There was also a very small left labial laceration which was superficial and not bleeding and as patient did not have an epidural and a preference against needles we opted to not repair. Both mother and stable in the immediate post delivery timeframe. No complications noted and blood loss per [facility] Vaginal Delivery Charge Delivery Type Details: [facility]
[2024-08-23] MEDS ORDERED: oxyCODONE/ACETAMINOPHEN 5mg/325mg TAB PO PRN (07:18)
[2024-08-23] MEDS ORDERED: OXYTOCIN 30 UNITS/NSS 30 UNITS/500 ML BAG IV PRN (07:18)
[2024-08-23] MEDS ORDERED: HYDROCORTISONE ACETATE 25 MG SUPP PR PRN (07:18)
[2024-08-23] MEDS ORDERED: ACETAMINOPHEN W/CODEINE #3 1 TAB PO PRN (07:18)
[2024-08-23] MEDS ORDERED: bisacodyL 10 MG SUPP PR PRN (07:18)
[2024-08-23] MEDS: BENZOCAINE 20% SPRY 85 APPLN/85 GM CAN EXT PRN (07:42)
[2024-08-23] MEDS: DOCUSATE SODIUM 100 MG CAP PO SCH (07:42)
[2024-08-23] MEDS: IBUPROFEN 600 MG TAB PO PRN (07:43)
[2024-08-23] MEDS: PRENATAL VITAMIN 1 TAB PO SCH (07:43)
[2024-08-23] MEDS: DIPHTHER/TETAN/PERTUS Vaccine (Tdap, Adol/Adult) 0.5mL IM ONE (07:43)
[2024-08-24 06:26] LABS: Hematocrit (blood only) 29.6 % (37.0-47.0); Hemoglobin 10.1 g/dl (12.0-16.0); Mean Corpuscular Hemoglobin 31.1 pg (25.0-34.0); Mean Corpuscular Hgb Conc 34.1 g/dL (32.0-36.0); Mean Corpuscular Volume 91.1 fL (80.0-100.0); Mean Platelet Volume 9.4 fL (9.4-12.4); Platelet Count 254 K/uL (130-400); RDW Coefficient of Variation 13.2 % (11.5-14.5); RDW Standard Deviation 43.2 fL (36.4-46.3); Red Blood Count 3.25 M/uL (4.20-5.40); White Blood Count 13.87 K/ul (4.8-10.8)
--- NOTE | 2024-08-24 08:32 | Obstetrical Progress Note ---
Date of Service August 24, 2024 Assessment & Plan Admission and Anticipated Discharge Date Admission Date: August 23, 2024 Subjective Patient is seen and examined. She feels well, no complaints. Ambulating without dizziness Voiding without difficulty Tolerating regular diet with out N&V Bleeding is minimal No fever/ chills/ CP/ SOB/ N&V/ Leg pain Breast feeding without problems Vital Signs Temp Pulse Resp BP Pulse Ox O2 Del Method 08/24/24 04:45 36.8 C 102 H 16 128/72 100 Room Air 08/24/24 00:00 36.6 C 108 H 16 108/72 99 Room Air Lab Results 08/23/24 08/24/24 Range/Units 05:05 05:50 WBC 13.38 H 13.87 H (4.8-10.8) K/ul RBC 4.28 3.25 L (4.20-5.40) M/uL Hgb 13.4 10.1 L D (12.0-16.0) g/dl Hct 39.4 29.6 L (37.0-47.0) % MCV 92.1 91.1 (80.0-100.0) fL MCH 31.3 31.1 (25.0-34.0) pg MCHC 34.0 34.1 (32.0-36.0) g/dL RDW Std Deviation 43.4 43.2 (36.4-46.3) fL RDW Coeff of Bird 13.1 13.2 (11.5-14.5) % Plt Count 286 254 (130-400) K/uL MPV 9.5 9.4 (9.4-12.4) fL Treponema pallidum Ab Negative (Negative) PE: General: Alert, orientedx3, NAD Abd: soft, NT, fundus firm, below Umbilicus Perineum intact, Lochia rubra minimal Ext; NT, no edema AP: 34 yo s/p , ppd# 1 VSS Afebrile doing well Continue routine care All questions were answered D/C home tomorrow Results & Data Vital Signs (Past 12 Hours) Vital Signs Temp Pulse Resp BP Pulse Ox O2 Del Method 08/24/24 04:45 36.8 C 102 H 16 128/72 100 Room Air 08/24/24 00:00 36.6 C 108 H 16 108/72 99 Room Air
[2024-08-24 19:50] VITALS: RESP 18
[2024-08-24] MEDS: bisacodyL 5 MG TABEC PO SCH (19:56)
[2024-08-25 00:26] VITALS: BP 114/74; TEMP 98.2; O2SAT 97
[2024-08-25 06:12] LABS: Hemoglobin 9.5 g/dl (12.0-16.0)
[2024-08-25 08:19] VITALS: PULSE 90
--- NOTE | 2024-08-25 09:41 | Obstetrical Progress Note ---
Date of Service August 25, 2024 Subjective Ambulation: ambulating normally Voiding: no voiding problems Passing Gas:: Yes Diet Tolerance:: regular diet Lochia:: Small Feeding Type:: breast feeding Current Pain Level(1-10): 0 doing well Physical Exam Constitutional WD/WN, vitals as above Gastrointestinal (Abdomen) Inspection/Auscultation: abdomen normal to inspection abdomen soft and non-tender. fundus firm below U Musculoskeletal Extremities: extremities normal to inspection Neurologic patellar DTR's 2+ bilat, sensation intact Psychiatric A+Ox3, euthymic affect Results & Data Vital Signs (Past 12 Hours) Vital Signs Temp Pulse Resp BP Pulse Ox O2 Del Method 08/25/24 07:30 36.8 C 90 18 114/74 Room Air 08/24/24 22:27 36.8 C 94 H 18 114/74 97 Room Air Laboratory Results 08/23/24 08/24/24 08/25/24 05:05 05:50 05:47 WBC 13.38 H 13.87 H RBC 4.28 3.25 L Hgb 13.4 10.1 L D 9.5 L Hct 39.4 29.6 L 28.0 L MCV 92.1 91.1 MCH 31.3 31.1 MCHC 34.0 34.1 RDW Std Deviation 43.4 43.2 RDW Coeff of Bird 13.1 13.2 Plt Count 286 254 MPV 9.5 9.4 Treponema pallidum Ab Negative Blood Type O Negative Antibody Screen NEGATIVE Screen Negative Draw and Hold Cancelled
== END 2024-08-25 11:40 | disposition home health service (06) | DRG 807 ==
LOC: OPB 04:07 → 4S1 04:16 → 4E2 09:41